=== PATIENT | female | born 1995 | race Caucasian/White ===

== ENCOUNTER 2019-07-19 17:14 | Emergency (ER) | payer MEDICAID, SELFPAY ==
[2019-07-19 17:47] VITALS: BP 104/67; PULSE 93; RESP 18; TEMP 37.3; O2SAT 100
--- NOTE | 2019-07-19 18:36 | ED.GENADULT ---
HPI - General Adult General Chief complaint: Upper Respiratory Infection Stated complaint: Lightheaded/congestion/nausea Time Seen by Provider: 07/19/19 18:38 Source: patient Mode of arrival: ambulatory Limitations: no limitations History of Present Illness HPI narrative: 23-year-old female patient presents to the [facility] with complaints of cold symptoms that started about 3 days ago. Patient states that she is currently 6 weeks approximately. Patient states that her boss recently did come back from [facility] and she has had contact with her recently. Patient states she has had a lot of congestion, sore throat, a cough. Patient states she has had some body aches and chills denies any fevers that she is aware of. Patient states that she did not get a flu shot this year. Patient states that her son recently had a cough as well. Related Data Home Medications Medication Instructions Recorded Confirmed No Home Medications 04/15/19 04/15/19 Allergies Allergy/AdvReac Type Severity Reaction Status Date / Time adhesive tape Allergy Unknown Rash Verified 04/15/19 08:39 azithromycin Allergy Unknown Swelling Verified 04/15/19 08:39 of Lip/Tongue/Throat amoxicillin Allergy Swelling Verified 04/15/19 08:39 of Lip/Tongue/Throat acetaminophen AdvReac Intermediate Headache Verified 04/15/19 08:39 Review of Systems Review of Systems: Narrative: CONSTITUTIONAL: Denies fever, positive body aches, chills, and sweats. EYES: Denies visual changes, redness, or discharge. ENT: Positive rhinorrhea, congestion, sore throat, denies otalgia. CARDIOVASCULAR: Denies chest pain, palpitations, or edema. RESPIRATORY: Positive cough, denies dyspnea. GASTROINTESTINAL: Denies abdominal pain, nausea, vomiting, or diarrhea. GENITOURINARY: Denies dysuria or hematuria. SKIN: Denies rash or itching. MUSCULOSKELETAL: Denies back pain, joint pain, or myalgia. NEUROLOGIC: Positive headache, denies numbness, or weakness. PSYCHIATRIC: Denies anxiety or depression. [facility] Surgical History Surgical History History of section Family History Family History Mother Patient's mother is in good health Father Acute myocardial infarction, Onset Age: 53 Social History Social History Smoking status: Never smoker Second hand tobacco smoke exposure: No Alcohol intake: never Gender identity (if verbalized by the patient): Female Comments At the time of my signature I agree with nursing past medical history, surgical, social, and family history. There is no relevant family history pertinent to the presenting complaint. Exam Narrative: Exam Narrative: GENERAL: Well-appearing, well-nourished, and in no acute distress. HEAD: Normocephalic, atraumatic. No tenderness noted to frontal maxillary sinuses on palpation EYES: PERRLA and EOMI. ENT: Nares with erythema and edema noted bilaterally, no rhinorrhea or epistaxis. Mucous membranes moist. Posterior pharynx with 2+ tonsil enlargement and slight erythema. Bilateral TMs are clear no erythema or foreign bodies in the canal. NECK: Supple. No lymphadenopathy CHEST: Clear to auscultation. No respiratory distress. Patient able talk in clear complete sentences. HEART: Regular rate and rhythm. No murmur heard. Normal peripheral pulses. ABDOMEN: Soft, nontender, nondistended, normal active bowel sounds. EXTREMITIES: Normal range of motion. No edema. SKIN: Warm, dry, no rash. NEURO: No focal deficits. Alert and oriented x3. Course Reevaluation(s) Reevaluation #1: Notify patient that she that she is negative today for strep and flu. Discussed with her we will send her strep swab off to the lab for further testing if it does come back positive in the next day or 2 we will call her and placing her and antib
== END 2019-07-19 19:07 | disposition home or self-care (01) ==
PROVIDERS: Emergency Provider Nurse Practitioner Family
DX: J06.9 Acute upper respiratory infection, unspecified (principal); R05 Cough
CPT/HCPCS: 87081; 87804; 87880; 99213; G0463

== ENCOUNTER 2019-07-28 07:11 | Outpatient (CLI) | payer MEDICAID, SELFPAY ==
[2019-07-28 09:04] LABS: Hematocrit 38.8 % (37.0-47.0); Hemoglobin 12.8 g/dL (12.0-15.0); Mean Corpuscular Hemoglobin 28.1 pg (26-34); Mean Corpuscular Volume 85.3 fl (80-100); Mean Platelet Volume 9.4 fl (7.4-10.4); Platelet Count Result 478 k/mm3 (150-375); Red Blood Count 4.55 M/mm3 (4.2-5.4); Red Cell Distribution Width 13.2 % (11.5-14.5); White Blood Count 15.2 K/mm3 (4.5-10.0)
[2019-07-28 09:08] LABS: Glucose 1 Hour PP 50gm Dose 125 mg/dL
[2019-07-28 10:00] LABS: Hepatitis B Surface Antigen Negative (Negative)
[2019-07-30 07:29] LABS: Rapid Plasma Reagin Non-Reactive (NonReactive)
[2019-08-01 17:14] LABS: CMV IgG Antibody <0.60 U/mL (<0.60)
== END 2019-07-28 07:12 | disposition home or self-care (01) ==
PROVIDERS: Visit Provider Obstetrics & Gynecology
DX: N92.5 Other specified irregular menstruation (principal)
CPT/HCPCS: 36415; 82947; 84702; 85027; 86592; 86644; 86747; 86787; 87086; 87340

== ENCOUNTER 2019-07-31 13:57 | Outpatient (CLI) | payer MEDICAID, SELFPAY ==
[2019-07-31 18:10] LABS: Rubella IgG Antibody 0.7 IU/ML
[2019-07-31 18:11] LABS: HIV 1/2 Ab P24 Ag Result Negative (Negative)
== END 2019-07-31 13:58 | disposition home or self-care (01) ==
LOC: ANHWCLAB 14:00
PROVIDERS: PCP Obstetrics & Gynecology; Visit Provider Obstetrics & Gynecology
DX: N92.5 Other specified irregular menstruation (principal)
CPT/HCPCS: 36415; 86703; 86762; 86850; 86900; 86901; G0432

== ENCOUNTER 2019-08-12 19:54 | Emergency (ER) | payer OTHER, SELFPAY ==
[2019-08-12 19:57] VITALS: BP 126/85; PULSE 96; RESP 18; TEMP 36.4; O2SAT 100
--- NOTE | 2019-08-12 20:09 | ED.FEMALEGU ---
HPI - Female Genitourinary General Chief complaint: Vaginal Bleeding <Brianna Preston PA-C - Last Filed: 08/12/19 21:35> Stated complaint: poss m/c <Brianna Preston PA-C - Last Filed: 08/12/19 21:35> Time Seen by Provider: 08/12/19 20:01 <Brianna Preston PA-C - Last Filed: 08/12/19 21:35> Source: patient <YINA Ortiz Last Filed: 08/12/19 21:35> Mode of arrival: ambulatory <YINA Ortiz Last Filed: 08/12/19 21:35> Limitations: no limitations <YINA Ortiz Last Filed: 08/12/19 21:35> History of Present Illness HPI Narrative: This is a 23 year old that presents to the ER for possible miscarriage. Reports she is 9 weeks . Reports her OB is Dr. Walter and she has had a normal US this . Reports today she started to have some cramping in her lower back. She then noted some mucus discharge that looked like there was some blood in it when she wiped. Denies fever, vomiting, dysuria or hematuria. <Brianna Preston PA-C - Last Filed: 08/12/19 21:35> Related Data Home medications: Home Medications Medication Instructions Recorded Confirmed No Home Medications 04/15/19 04/15/19 <YINA Ortiz Last Filed: 08/12/19 21:35> Allergies/Adverse reactions: Allergies Allergy/AdvReac Type Severity Reaction Status Date / Time adhesive tape Allergy Unknown Rash Verified 08/12/19 21:26 azithromycin Allergy Unknown Swelling Verified 08/12/19 21:26 of Lip/Tongue/Throat amoxicillin Allergy Swelling Verified 08/12/19 21:26 of Lip/Tongue/Throat acetaminophen AdvReac Intermediate Headache Verified 08/12/19 21:26 <YINA Ortiz Last Filed: 08/12/19 21:35> Review of Systems Review of Systems: Narrative: CONSTITUTIONAL: Denies fever GASTROINTESTINAL: Denies abdominal pain, nausea, vomiting GENITOURINARY: Denies dysuria or hematuria. MUSCULOSKELETAL: Reports back pain <Brianna Preston PA-C - Last Filed: 08/12/19 21:35> All systems reviewed & are unremarkable except as noted in HPI and below <Brianna Preston PA-C - Last Filed: 08/12/19 21:35> [facility] Social History Social History: Social History (Updated 08/12/19 @ 20:09 by Brianna Preston PA-C) Smoking status: Current some day smoker Alcohol intake: never Substance use type: marijuana Gender identity (if verbalized by the patient): Female <Brianna Preston PA-C - Last Filed: 08/12/19 21:35> Exam Narrative: Exam Narrative: GENERAL: Well-appearing, obese, and in no acute distress. HEAD: Normocephalic, atraumatic. EYES: EOMI. CHEST: Clear to auscultation. No respiratory distress. No wheezes rales or rhonchi HEART: Regular rate and rhythm. No murmur heard. Normal peripheral pulses. ABDOMEN: Soft, nontender, nondistended, normal active bowel sounds. EXTREMITIES: Normal range of motion. No edema. SKIN: Warm, dry, no rash. NEURO: No focal deficits. Alert and oriented x3. PSYCH: Normal mood and affect PELVIC: Normal cervix, closed. Small amount of dark red blood in the vaginal vault <Brianna Preston PA-C - Last Filed: 08/12/19 21:35> Course Vital Signs Vital signs: Vital Signs Temperature 36.4 C L 08/12/19 19:57 Pulse Rate 96 08/12/19 19:57 Respiratory Rate 18 08/12/19 19:57 Blood Pressure 126/85 08/12/19 19:57 Pulse Oximetry 100 08/12/19 19:57 Temperature 36.4 C L 08/12/19 19:57 Pulse Rate 85 08/12/19 21:42 Respiratory Rate 16 08/12/19 21:42 Blood Pressure 110/55 L 08/12/19 21:42 Pulse Oximetry 98 08/12/19 21:42 <Brianna Preston PA-C - Last Filed: 08/12/19 21:35> Vital Signs Temperature 36.4 C L 08/12/19 19:57 Pulse Rate 96 08/12/19 19:57 Respiratory Rate 18 08/12/19 19:57 Blood Pressure 126/85 08/12/19 19:57 Pulse Oximetry 100 08/12/19 19:57 Temperature 36.4 C L 08/12/19 19:57 Pulse Rate 85 08/12/19 21:42 Respiratory Rate 16 04/
[2019-08-12 20:20] LABS: Basophils Absolute Auto 0.1 K/mm3 (0.0-0.1); Basophils Percent Auto 0.6 % (0.2-1.2); Eosinophils Absolute Auto 0.3 K/mm3 (0-0.3); Eosinophils Percent Auto 2.3 % (0-4.4); Hematocrit 42.1 % (37.0-47.0); Hemoglobin 13.7 g/dL (12.0-15.0); Immature Granulocyte Absolute 0.04 K/mm3 (0.00-0.031); Immature Granulocyte Percent A 0.3 % (0-0.5); Lymphocytes Absolute Auto 3.88 K/mm3 (0.9-3.2); Lymphocytes Percent Auto 33.7 % (18.3-44.2); Mean Corpuscular HGB Conc 32.5 g/dl (32-36); Mean Corpuscular Hemoglobin 28.3 pg (26-34); Mean Platelet Volume 9.4 fl (7.4-10.4); Monocytes Absolute Auto 0.6 K/mm3 (0.1-0.6); Monocytes Percent Auto 5.1 % (2.6-8.5); Neutrophils Absolute Auto 6.7 K/mm3 (1.3-6.7); Platelet Count Result 485 k/mm3 (150-375); Red Blood Count 4.84 M/mm3 (4.2-5.4); Red Cell Distribution Width 13.5 % (11.5-14.5); White Blood Count 11.5 K/mm3 (4.5-10.0)
[2019-08-12 20:26] VITALS: BP 116/84; BP 119/73; BP 120/81; PULSE 112; PULSE 92; PULSE 98
[2019-08-12 20:31] LABS: Blood Urea Nitrogen 10 mg/dL (7-17); Calcium 9.7 mg/dL (8.4-10.2); Carbon Dioxide 29 mmol/L (22-30); Chloride 100 mmol/L (98-107); Estimated Glomerular Filt Rate > 60; Glucose 96 mg/dL (65-105); Potassium 3.5 mmol/L (3.4-5.0); Sodium 137 mmol/L (137-145)
[2019-08-12 21:07] LABS: Add Urine Microscopic? YES; Appearance Urine Clear (Clear); Bacteria Urine Trace /hpf; Bilirubin Urine Negative (Negative); Blood Urine Negative (Negative); Color Urine Yellow (Yellow); Glucose Urine UA Negative (Negative); Ketones Urine Trace mg/dL (Negative); Leukocyte Esterase Ur Trace LEU/UL (Negative); Mucus Urine Rare /lpf; Nitrate Urine Negative (Negative); Protein Urine 1+ mg/dL (Negative); Specific Grav Ur 1.027 (1.001-1.035); Squamous Epithelial Cell Urine Many /hpf (Few)
[2019-08-12 21:42] VITALS: BP 110/55; PULSE 85; RESP 16; O2SAT 98
== END 2019-08-12 21:44 | disposition home or self-care (01) ==
PROVIDERS: Physician Assistant; Emergency Provider Emergency Medicine; PCP Obstetrics & Gynecology
DX: O46.91 Antepartum hemorrhage, unspecified, first trimester (principal); O99.331 Smoking (tobacco) complicating pregnancy, first trimester; F17.200 Nicotine dependence, unspecified, uncomplicated; Z3A.09 9 weeks gestation of pregnancy
CPT/HCPCS: 36415; 80048; 81001; 81025; 84702; 85025; 86900; 86901; 87070; 87491; 87591; 87808; 99284

== ENCOUNTER 2019-08-30 01:16 | Day surgery (SDC) | payer OTHER, SELFPAY ==
[2019-08-29 12:49] VITALS: BMI 42.2
[2019-08-30] MEDS: LACTATED RINGERS 1,000 ML 30 ML IV CONT (06:05)
[2019-08-30 06:09] VITALS: BP 120/70; PULSE 95; RESP 20; TEMP 36.3; O2SAT 100
--- NOTE | 2019-08-30 07:08 | WPDANESEPPF ---
Anes - Initial Pre Proc Eval Procedure: Operation Date: 08/30/19 07:30 Proposed Procedures p Suction Dilation and Curettage - Wilson Walter MD Date/Time: 08/30/19 07:08 Surgeon: Wilson Walter MD Pre Op Diagnosis: missed ab Patient Data Age: 23 Gender: F Height: 1.52 m Weight: 97.4 kg Last Vital Signs Temp 36.3 C L 08/30/19 06:09 Pulse 95 08/30/19 06:09 Resp 20 08/30/19 06:09 BP 120/70 08/30/19 06:09 Pulse Ox 100 08/30/19 06:09 Allergies Allergy/AdvReac Type Severity Reaction Status Date / Time amoxicillin Allergy Severe Swelling Verified 08/30/19 06:50 of Lip/Tongue/Throat adhesive tape Allergy Mild Rash Verified 08/30/19 06:50 azithromycin Allergy Unknown Swelling Verified 08/30/19 06:50 of Lip/Tongue/Throat acetaminophen AdvReac Intermediate Headache Verified 08/30/19 06:50 Home Medications Medication Instructions Recorded Confirmed Type No Home Medications 04/15/19 08/30/19 History Patient hx anesthesia problems: none Family hx anesthesia problems: none PMFSH Past Medical History Medical History (Updated 08/30/19 @ 07:09 by Jamel Green MD) Anxiety Depression Eczema HTN (hypertension) Hypercholesterolemia Migraine Morbid obesity with BMI of 40.0-44.9, adult Surgical History Surgical History (System 08/13/19 @ 09:23 by Olivia Gilmore) History of section Social History Social History (System 08/13/19 @ 09:23 by Olivia Gilmore) Smoking status: Current some day smoker Alcohol intake: never Substance use type: marijuana Gender identity (if verbalized by the patient): Female Anes - Eval Final PreProcedure Day of Procedure 08/30/19 07:08 Patient weight: morbidly obese Heart: regular rate and rhythm Lungs: clear to auscultation and normal air movement Airway: Mallampati scale class II Neurological: alert and oriented Last oral intake: >/= 8 hours ASA classification: III Emergent: no Anesthetic plan: proceed Anesthesia type and monitoring: general GIVS Informed Consent: The patient's anesthetic plan and its attendant risks and benefits were discussed with the patient/family/POA. Questions were solicited and answers provided to the satisfaction of the patient/family/POA.
--- NOTE | 2019-08-30 07:14 | PM.IMHP ---
H&P: HPI History of Present Illness Chief complaint: missed ab Narrative: Jacinta Rodrigues is a 23 year old female 0-1 presents for suction curettage due to missed . She has had multiple ultrasounds with no pole noted and no growth in gestational sac. She has had no bleeding or pain. We have discussed expectant management versus intervention and she strongly desires to have curettage performed. Review of Systems Review of Systems: All systems reviewed & are unremarkable except as noted in HPI and below PMFSH Past Medical History Medical History Anxiety Depression Eczema HTN (hypertension) Hypercholesterolemia Migraine Morbid obesity with BMI of 40.0-44.9, adult Surgical History Surgical History History of section Family History Family History Mother Patient's mother is in good health Father Acute myocardial infarction, Onset Age: 53 Social History Social History Smoking status: Current some day smoker Alcohol intake: never Substance use type: marijuana Gender identity (if verbalized by the patient): Female Meds Home Medications and Allergies Home Medications Medication Instructions Recorded Confirmed Type No Home Medications 04/15/19 08/30/19 History Allergies Allergy/AdvReac Type Severity Reaction Status Date / Time amoxicillin Allergy Severe Swelling Verified 08/30/19 06:50 of Lip/Tongue/Throat adhesive tape Allergy Mild Rash Verified 08/30/19 06:50 azithromycin Allergy Unknown Swelling Verified 08/30/19 06:50 of Lip/Tongue/Throat acetaminophen AdvReac Intermediate Headache Verified 08/30/19 06:50 Vital Signs Vital Signs - 24 hr 08/30/19 06:09 Temperature 36.3 C L Pulse Rate 95 Respiratory Rate 20 Blood Pressure 120/70 Pulse Oximetry 100 Exam Const: General: no acute distress Resp: Auscultation: clear to auscultation bilaterally Cardio: Rate: regular rate Rhythm: regular rhythm : Bimanual exam- vagina & uterus: enlarged (8-10 week size) Assessment and Plan Assessment and plan (1) Missed : Code(s): O02.1 - Missed Status: Acute Assessment and Plan: Proceed with suction curettage.
--- NOTE | 2019-08-30 07:52 | PM.OP ---
Procedure Note - Brief Procedure Note - Brief Date of procedure: 08/30/19 Pre-op diagnosis: missed ab Post-op diagnosis: same Procedure performed: Suction curettage Description of procedure: Patient prepped draped usual manner for this procedure. Cervix dilated to allow a 9mm suction curette to be placed. Curette was placed and 25th 25cc of tissue were removed. Sharp curette throughout the entire cavity with no remaining tissue noted. Suction curette placed 1 last time with small amount of bleeding. This point seizure was considered terminated. Immediate postop condition patient was excellent. Anesthesia: MAC Surgeon: Wilson Walter MD Estimated blood loss (mL): 50 Drains: No Packing: No Pathology: yes (Products of conception) Complications: No immediate complications Condition: stable Disposition: PACU Findings: Moderate amount of retained products of conception.
[2019-08-30 07:53] VITALS: BP 99/59; PULSE 96; RESP 16; O2SAT 95
[2019-08-30] MEDS: KETOROLAC 30 MG/ML VIAL (*BKC) IV PUSH (08:10)
[2019-08-30 08:30] VITALS: BP 91/47; PULSE 74; RESP 16
[2019-08-30 08:55] VITALS: BP 108/69; PULSE 78; RESP 16
== END 2019-08-30 09:10 | disposition home or self-care (01) ==
PROVIDERS: Visit Provider Obstetrics & Gynecology
PROC: (CPT 59820; principal; 2019-08-30 07:30)
DX: O02.1 Missed abortion (principal); E66.01 Morbid (severe) obesity due to excess calories; Z68.41 Body mass index [BMI] 40.0-44.9, adult; Z72.0 Tobacco use; F12.90 Cannabis use, unspecified, uncomplicated
CPT/HCPCS: 59820; 88305; A9270; J1885; J2250; J2704; J7120

== ENCOUNTER 2019-10-02 11:37 | Emergency (ER) | payer OTHER, SELFPAY ==
--- NOTE | 2019-10-02 11:54 | ED.GENADULT ---
HPI - General Adult General Chief complaint: Upper Respiratory Infection Stated complaint: Sore throat Time Seen by Provider: 10/02/19 11:54 Source: patient Mode of arrival: ambulatory Limitations: no limitations History of Present Illness HPI narrative: 23-year-old female patient resents to the [facility] with plaints of cold symptoms that started yesterday. Patient states she has had a fever as high as 99. Patient states she has been taking ibuprofen for symptoms. Patient states she has had a runny nose, stuffy nose, sneezing, sore throat and slight cough. Patient states every once while she might have some shortness of breath but that is not necessarily new. Patient does states that she smokes cigarettes at times and does smoke marijuana. Patient states that she does currently working at this time [employer]. Patient states she is tried taking ibuprofen for symptoms but denies any other [id number]-lrvybsy medications for symptoms. Related Data Home Medications Medication Instructions Recorded Confirmed [id number]-sybudqpshwnte-kbfz tablet 10/02/19 Allergies Allergy/AdvReac Type Severity Reaction Status Date / Time amoxicillin Allergy Severe Swelling Verified 08/30/19 06:50 of Lip/Tongue/Throat adhesive tape Allergy Mild Rash Verified 08/30/19 06:50 azithromycin Allergy Unknown Swelling Verified 08/30/19 06:50 of Lip/Tongue/Throat acetaminophen AdvReac Intermediate Headache Verified 08/30/19 06:50 Review of Systems Review of Systems: Narrative: CONSTITUTIONAL: Positive subjective low-grade fever, chills, denies sweats. EYES: Denies visual changes, redness, or discharge. ENT: Positive rhinorrhea, congestion, sore throat, denies otalgia. CARDIOVASCULAR: Denies chest pain, palpitations, or edema. RESPIRATORY: Positive intermittent cough, denies dyspnea. GASTROINTESTINAL: Denies abdominal pain, nausea, vomiting, or diarrhea. GENITOURINARY: Denies dysuria or hematuria. SKIN: Denies rash or itching. MUSCULOSKELETAL: Denies back pain, joint pain, or myalgia. NEUROLOGIC: Denies headache, numbness, or weakness. PSYCHIATRIC: Denies anxiety or depression. [facility] Past Medical History Medical History Anxiety Depression Eczema HTN (hypertension) Hypercholesterolemia Migraine Morbid obesity with BMI of 40.0-44.9, adult Surgical History Surgical History History of section Family History Family History Mother Patient's mother is in good health Father Acute myocardial infarction, Onset Age: 53 Social History Social History Smoking status: Current some day smoker Alcohol intake: never Substance use type: marijuana Gender identity (if verbalized by the patient): Female Comments At the time of my signature I agree with nursing past medical history, surgical, social, and family history. There is no relevant family history pertinent to the presenting complaint. Exam Narrative: Exam Narrative: GENERAL: Well-appearing, well-nourished, and in no acute distress. HEAD: Normocephalic, atraumatic. EYES: PERRLA and EOMI. ENT: Nares with erythema and edema noted bilateral, no rhinorrhea or epistaxis. Mucous membranes moist. Posterior pharynx with no erythema, tonsil enlargement, exudates or lesions present. Bilateral TMs are clear no erythema or foreign bodies in the canal. NECK: Supple. No lymphadenopathy CHEST: Clear to auscultation. No respiratory distress. Patient able talk in clear complete sentences. No tripoding noted. HEART: Regular rate and rhythm. No murmur heard. Normal peripheral pulses. ABDOMEN: Soft, nontender, nondistended, normal active bowel sounds. EXTREMITIES: Normal range of motion. No edema. SKIN: Warm, dry, no rash. NEURO: No focal
[2019-10-02 11:58] VITALS: BP 118/74; PULSE 88; RESP 16; TEMP 37.3; O2SAT 100
== END 2019-10-02 12:21 | disposition home or self-care (01) ==
PROVIDERS: Emergency Provider Nurse Practitioner Family
DX: Z20.828 Contact with and (suspected) exposure to other viral communicable diseases (principal); J30.9 Allergic rhinitis, unspecified; J06.9 Acute upper respiratory infection, unspecified; F17.210 Nicotine dependence, cigarettes, uncomplicated; F12.90 Cannabis use, unspecified, uncomplicated; I10 Essential (primary) hypertension; E66.01 Morbid (severe) obesity due to excess calories; Z68.41 Body mass index [BMI] 40.0-44.9, adult
CPT/HCPCS: 87081; 87880; 99213; G0463

== ENCOUNTER 2019-10-30 17:11 | Outpatient (CLI) | payer OTHER, SELFPAY ==
[2019-11-02 18:22] LABS: Anti-Thrombin III Antigen 85 % (80-120)
[2019-11-02 21:00] LABS: Lupus dRVVT Confirmation Positive (Negative)
[2019-11-03 04:38] LABS: Anti Cardio Antibody IgM <12 MPL (<=12); Anti Cardiolipin Antibody IgA <11 APL (<=11); Anti Cardiolipin Antibody IgG <14 GPL (<=14)
[2019-11-03 04:53] LABS: Lupus dRVVT Screen 46 sec (<=45); PTT-LA Screen 35 sec (<=40)
== END 2019-10-30 17:12 | disposition home or self-care (01) ==
PROVIDERS: PCP Obstetrics & Gynecology; Visit Provider Obstetrics & Gynecology
DX: N96 Recurrent pregnancy loss (principal)
CPT/HCPCS: 36415; 81241; 84311; 85301; 85303; 85306; 85597; 85613; 85730; 86038; 86147

== ENCOUNTER 2020-02-26 16:24 | Outpatient (CLI) | payer OTHER, SELFPAY | END 2020-02-26 16:25 | disposition home or self-care (01) | LOC: ANHLAB 16:26 | PROVIDERS: Visit Provider Obstetrics & Gynecology | DX: O20.0 Threatened abortion (principal) | CPT/HCPCS: 36415; 84702 ==

== ENCOUNTER 2020-02-28 11:51 | Outpatient (CLI) | payer OTHER, SELFPAY | END 2020-02-28 11:52 | disposition home or self-care (01) | PROVIDERS: Visit Provider Obstetrics & Gynecology | DX: O20.0 Threatened abortion (principal) | CPT/HCPCS: 36415; 84702 ==

== ENCOUNTER 2020-04-08 12:12 | Outpatient (CLI) | payer OTHER, SELFPAY ==
[2020-04-08 13:48] LABS: Hematocrit 38.2 % (37.0-47.0); Mean Corpuscular Hemoglobin 29.1 pg (26-34); Mean Corpuscular Volume 85.7 fl (80-100); Mean Platelet Volume 9.3 fl (7.4-10.4); Platelet Count Result 346 k/mm3 (150-375); Red Blood Count 4.46 M/mm3 (4.2-5.4); Red Cell Distribution Width 13.5 % (11.5-14.5); White Blood Count 8.5 K/mm3 (4.5-10.0)
[2020-04-08 14:00] LABS: Glucose 1 Hour PP 50gm Dose 146 mg/dL
[2020-04-08 16:44] LABS: Hepatitis B Surface Antigen Negative (Negative); Rubella IgG Antibody < 0.6 IU/ML
[2020-04-08 17:53] LABS: HIV 1/2 Ab P24 Ag Result Negative (Negative)
[2020-04-09 06:41] LABS: Rapid Plasma Reagin Non-Reactive (NonReactive)
[2020-04-14 08:33] LABS: CMV IgG Antibody <0.60 U/mL (<0.60)
== END 2020-04-08 12:13 | disposition home or self-care (01) ==
PROVIDERS: Visit Provider Obstetrics & Gynecology
DX: Z34.81 Encounter for supervision of other normal pregnancy, first trimester (principal); Z3A.00 Weeks of gestation of pregnancy not specified
CPT/HCPCS: 36415; 82947; 85027; 86592; 86644; 86703; 86747; 86762; 86787; 86850; 86900; 86901; 87086; 87340; G0432

== ENCOUNTER 2020-04-21 06:56 | Outpatient (CLI) | payer OTHER, SELFPAY ==
[2020-04-21 08:10] LABS: Glucose Fasting Gestational 90 mg/dL (>/=95)
[2020-04-21 10:04] LABS: Glucose 1 Hour Gest 168 mg/dL (>/=180)
[2020-04-21 10:43] LABS: Glucose 2 Hour Gest 145 mg/dL (>/= 155)
[2020-04-21 11:46] LABS: Glucose 3 Hour Gest 125 mg/dL (>/=140)
== END 2020-04-21 06:57 | disposition home or self-care (01) ==
PROVIDERS: Visit Provider Obstetrics & Gynecology
DX: R73.09 Other abnormal glucose (principal)
CPT/HCPCS: 36415; 82951; 82952

== ENCOUNTER 2020-05-27 14:28 | Outpatient (CLI) | payer OTHER, SELFPAY | END 2020-05-27 14:29 | disposition home or self-care (01) | PROVIDERS: Visit Provider Obstetrics & Gynecology | DX: N39.0 Urinary tract infection, site not specified (principal) | CPT/HCPCS: 87086 ==

== ENCOUNTER 2020-06-02 16:58 | Observation (INO) | payer OTHER, SELFPAY ==
[2020-06-02 17:46] VITALS: BP 104/61; PULSE 99
[2020-06-02 18:01] VITALS: BP 102/55; PULSE 94
--- NOTE | 2020-06-16 09:39 | PM.OBTRLD ---
OB - Triage/Final Diagnosis Visit Information Comments/Additional reasons for admission: I have assessed the risk for this patient, Jacinta Rodrigues, and determined that she would benefit from observation care. Final Diagnosis (1) Round ligament pain: Code(s): N94.9 - Unspecified condition associated with female genital organs and menstrual cycle Status: Acute
== END 2020-06-02 18:10 | disposition home or self-care (01) ==
PROVIDERS: Admitting Provider Obstetrics & Gynecology; Visit Provider Obstetrics & Gynecology
DX: O26.892 Other specified pregnancy related conditions, second trimester (principal); R10.2 Pelvic and perineal pain; Z3A.19 19 weeks gestation of pregnancy
CPT/HCPCS: G0378; G0379

== ENCOUNTER 2020-08-01 11:12 | Outpatient (CLI) | payer OTHER, SELFPAY ==
[2020-08-01 12:38] LABS: Basophils Percent Auto 0.2 % (0.2-1.2); Eosinophils Absolute Auto 0.2 K/mm3 (0-0.3); Eosinophils Percent Auto 1.3 % (0-4.4); Hematocrit 34.6 % (37.0-47.0); Hemoglobin 11.6 g/dL (12.0-15.0); Immature Granulocyte Absolute 0.13 K/mm3 (0.00-0.031); Immature Granulocyte Percent A 0.9 % (0-0.5); Lymphocytes Absolute Auto 2.61 K/mm3 (0.9-3.2); Lymphocytes Percent Auto 18.9 % (18.3-44.2); Mean Corpuscular HGB Conc 33.5 g/dl (32-36); Mean Corpuscular Hemoglobin 28.5 pg (26-34); Mean Platelet Volume 9.5 fl (7.4-10.4); Monocytes Absolute Auto 0.4 K/mm3 (0.1-0.6); Neutrophils Absolute Auto 10.4 K/mm3 (1.3-6.7); Neutrophils Percent Auto 75.7 % (45.5-73.1); Platelet Count Result 373 k/mm3 (150-375); Red Blood Count 4.07 M/mm3 (4.2-5.4); Red Cell Distribution Width 14.1 % (11.5-14.5); White Blood Count 13.8 K/mm3 (4.5-10.0)
[2020-08-01 12:49] LABS: Glucose 1 Hour PP 50gm Dose 154 mg/dL
[2020-08-01 13:31] LABS: HIV 1/2 Ab P24 Ag Result Negative (Negative)
== END 2020-08-01 11:13 | disposition home or self-care (01) ==
PROVIDERS: Visit Provider Obstetrics & Gynecology
DX: Z34.82 Encounter for supervision of other normal pregnancy, second trimester (principal); Z3A.00 Weeks of gestation of pregnancy not specified
CPT/HCPCS: 36415; 82947; 85025; 86703; G0432

== ENCOUNTER 2020-08-23 06:56 | Observation (INO) | payer OTHER, SELFPAY ==
[2020-08-23 07:10] VITALS: BMI 96.8
--- NOTE | 2020-08-23 07:10 | OBADM ---
This patient, Jacinta Rodrigues, admitted to the OB room OB Post 116 for observation. Patient/family oriented to hospital policies and general routines including ID bracelet, bed and alarms, visiting hours, pain management, procedures, bathroom and other care routines, personal items, smoking policy, room service/diet, and visiting hours. Patient/Family are encouraged to report perceived risks to care and to ask questions if they do not understand what they are told or what they should do.
[2020-08-23 07:18] VITALS: BP 115/58; PULSE 106
[2020-08-23 07:30] VITALS: BP 113/58; PULSE 110
[2020-08-23 07:53] VITALS: BP 115/58; PULSE 106
--- NOTE | 2020-08-23 07:59 | PC.NURSE ---
Felipe Vogel spoke with Dr. Walter. Will discharge patient to home with follow up in office.
--- NOTE | 2020-08-30 09:01 | PM.OBTRLD ---
OB - Triage/Final Diagnosis Visit Information Reason for evaluation: threatened labor Comments/Additional reasons for admission: I have assessed the risk for this patient, Jacinta Rodrigues, and determined that she would benefit from observation care.
== END 2020-08-23 07:55 | disposition home or self-care (01) ==
PROVIDERS: Admitting Provider Obstetrics & Gynecology; Visit Provider Obstetrics & Gynecology
DX: O47.9 False labor, unspecified (principal); Z3A.00 Weeks of gestation of pregnancy not specified
CPT/HCPCS: 59025; G0378; G0379

== ENCOUNTER 2020-10-10 13:29 | Outpatient (RCR) | payer OTHER, SELFPAY ==
[2020-08-27 13:53] VITALS: BP 126/68; PULSE 109
--- NOTE | 2020-08-27 14:17 | PC.NURSE ---
BPP 12/14
[2020-08-30 09:55] VITALS: BP 115/71; PULSE 117
[2020-09-03 15:21] VITALS: BP 106/48
[2020-09-07 14:33] VITALS: BP 107/66; PULSE 106
[2020-09-10 10:03] VITALS: BP 114/64; PULSE 108
[2020-09-13 14:18] VITALS: BP 114/62; PULSE 111
[2020-09-17 15:05] VITALS: BP 109/63; PULSE 116
[2020-09-20 15:36] VITALS: BP 127/70; PULSE 107
[2020-09-24 14:00] VITALS: BP 115/69; PULSE 107
[2020-09-29 14:40] VITALS: BP 106/55; PULSE 107
[2020-10-02 15:49] VITALS: BP 120/72; PULSE 105
[2020-10-07 14:02] VITALS: BP 128/73; PULSE 105
--- NOTE | ~2020-10-10 | US_ITS ---
EXAMINATION: US OB BPP wo non-stress DATE: 09/10/2020 10:09 INDICATION: Gestational diabetes third trimester TECHNIQUE: Real-time pelvic ultrasound was performed. The interpreting radiologist was not present fo r the study. COMPARISON: 08/24/2020 FINDINGS: There is a single living fetus in vertex presentation. The placenta is anterior. heart rate is 141 beats per minute (bpm). Biophysical profile performed by the technologist: breathing (30 sec sustained breathing in 30 minutes): 2 out of 2 movement (3 gross body movements in 30 minutes): 2 out of 2 tone (one episode of mngiiqf-giyomlgyy-fkxfyuu limb movement): 2 out of 2 Amniotic fluid pocket (2 cm): 2 out of 2 Total score: 8 out of 8 IMPRESSION: 1. Single living fetus in vertex presentation. 2. Biophysical profile 8 out of 8. Reviewed, dictated and finalized at location A.
--- NOTE | ~2020-10-10 | US_ITS ---
EXAMINATION: US OB BPP wo non-stress DATE: 09/24/2020 14:28 INDICATION: Gestational diabetes. Third trimester. TECHNIQUE: Real-time pelvic ultrasound was performed. COMPARISON: Ultrasound 09/17/2020 FINDINGS: There is a single living fetus in vertex presentation. The placenta is fundal. heart rate is 1 28 beats per minute (bpm). Biophysical profile performed by the technologist: breathing (30 sec sustained breathing in 30 minutes): 2 out of 2 movement (3 gross body movements in 30 minutes): 2 out of 2 tone (one episode of pztpznh-tcvbsqboz-inahwpl limb movement): 2 out of 2 Amniotic fluid pocket (2 cm): 2 out of 2 Total score: 8 out of 8 IMPRESSION: 1. Single living fetus in vertex presentation. 2. Biophysical profile 8 out of 8. Reviewed, dictated and finalized at location A.
--- NOTE | ~2020-10-10 | US_ITS ---
EXAMINATION: US OB BPP wo non-stress DATE: 10/02/2020 16:59 CDT INDICATION: Gestational diabetes TECHNIQUE: Real-time transabdominal obstetric ultrasound. FINDINGS: Ultrasound dated 09/24/2020 There is a single living fetus in vertex presentation. The placenta is fundal without placenta previ a. cardiac activity and movement is noted with a heart rate of 119 beats per minute. Biophysical profile: breathin of 2 movement: 2 of 2 tone: 2 of 2 Amniotic flud pocket: 2 of 2 Total score: 8 of 8 IMPRESSION: 1. Single living intrauterine in vertex presentation. 2: Total biophysical profile score of 8/8. Reviewed, dictated and finalized at location A.
--- NOTE | ~2020-10-10 | US_ITS ---
EXAMINATION: US OB BPP wo non-stress DATE: 08/27/2020 14:14 INDICATION: Maternal gestational diabetes during third trimester of TECHNIQUE: Real-time pelvic ultrasound was performed. The interpreting radiologist was not present fo r the study. COMPARISON: None. FINDINGS: There is a single living fetus in vertex presentation. The placenta is anterior. heart rate is 124 beats per minute (bpm). Biophysical profile performed by the technologist: breathing (30 sec sustained breathing in 30 minutes): 2 out of 2 movement (3 gross body movements in 30 minutes): 2 out of 2 tone (one episode of pfquhea-rfaylaela-nvxzoii limb movement): 2 out of 2 Amniotic fluid pocket (2 cm): 2 out of 2 Total score: 8 out of 8 IMPRESSION: 1. Single living fetus in vertex presentation with heart rate of 124 bpm. 2. Biophysical profile 8 out of 8. Reviewed, dictated and finalized at location A.
--- NOTE | ~2020-10-10 | US_ITS ---
EXAMINATION: US OB BPP wo non-stress DATE: 09/03/2020 15:36 INDICATION: Gestational diabetes during third trimester TECHNIQUE: Real-time pelvic ultrasound was performed. The interpreting radiologist was not present fo r the study. COMPARISON: 08/27/2020 FINDINGS: There is a single living fetus in vertex presentation. The placenta is anterior. heart rate is 131 beats per minute (bpm). Biophysical profile performed by the technologist: breathing (30 sec sustained breathing in 30 minutes): 2 out of 2 movement (3 gross body movements in 30 minutes): 2 out of 2 tone (one episode of jbuwlyh-ysivyskqw-pafofvy limb movement): 2 out of 2 Amniotic fluid pocket (2 cm): 2 out of 2 Total score: 8 out of 8 IMPRESSION: 1. Single living fetus in vertex presentation with heart rate of 131 bpm. 2. Biophysical profile 8 out of 8. Reviewed, dictated and finalized at location A.
--- NOTE | ~2020-10-10 | US_ITS ---
EXAMINATION: US OB BPP wo non-stress EXAM DATE: 10/10/2020 14:33 INDICATION: Gestational diabetes. Biophysical profile requested. 3rd trimester. TECHNIQUE: Pelvic obstetrical transabdominal sonogram was performed by a technologist. There are mu ltiple grayscale and Doppler images available for interpretation. Comparison is made to prior examina tion from 10/02/2020. FINDINGS: There is a single fetus identified in vertex presentation with a heart rate of 152 beats pe r minute. The placenta is located in the anterior position. There is no sonographic evidence of retr oplacental hemorrhage identified. BIOPHYSICAL PROFILE (performed by the technologist) breathing (30 sec sustained breathing in 30 minutes): 2 out of 2 movement (3 gross body movements in 30 minutes): 2 out of 2 tone (one episode of bniqwiy-hjqmpqegk-wjtznoq limb movement): 2 out of 2 Amniotic fluid pocket (2 cm): 2 out of 2 Total score: 8 out of 8 IMPRESSION: 1. Single fetus with heart rate of 152 bpm. 2. Normal biophysical profile score of 8 out of 8. Reviewed, dictated and finalized at location B.
--- NOTE | ~2020-10-10 | US_ITS ---
EXAMINATION: US OB BPP wo non-stress DATE: 09/17/2020 14:57 INDICATION: Maternal gestational diabetes during third trimester of TECHNIQUE: Real-time pelvic ultrasound was performed. The interpreting radiologist was not present fo r the study. COMPARISON: None. FINDINGS: There is a single living fetus in vertex presentation. The placenta is anterior. heart rate is 133 beats per minute (bpm). Biophysical profile performed by the technologist: breathing (30 sec sustained breathing in 30 minutes): 2 out of 2 movement (3 gross body movements in 30 minutes): 2 out of 2 tone (one episode of oyxtbab-ugsbjbvem-cnwyzzq limb movement): 2 out of 2 Amniotic fluid pocket (2 cm): 2 out of 2 Total score: 8 out of 8 IMPRESSION: 1. Single living fetus in vertex presentation with heart rate of 133 bpm. 2. Biophysical profile 8 out of 8. Reviewed, dictated and finalized at location A.
[2020-10-10 14:01] VITALS: BP 121/71; PULSE 113
== END 2020-10-15 07:46 | disposition home or self-care (01) ==
LOC: ANHOBOP 13:29
PROVIDERS: Visit Provider Obstetrics & Gynecology
DX: O24.419 Gestational diabetes mellitus in pregnancy, unspecified control (principal); Z3A.32 32 weeks gestation of pregnancy; Z3A.33 33 weeks gestation of pregnancy; Z3A.34 34 weeks gestation of pregnancy; Z3A.35 35 weeks gestation of pregnancy; Z3A.36 36 weeks gestation of pregnancy; Z3A.37 37 weeks gestation of pregnancy; Z3A.38 38 weeks gestation of pregnancy
CPT/HCPCS: 59025; 76819

== ENCOUNTER 2020-10-13 11:54 | Outpatient (CLI) | payer OTHER, SELFPAY ==
[2020-10-13 12:20] LABS: Hematocrit 34.9 % (37.0-47.0); Hemoglobin 10.8 g/dL (12.0-15.0); Mean Corpuscular HGB Conc 30.9 g/dl (32-36); Mean Corpuscular Hemoglobin 25.2 pg (26-34); Mean Corpuscular Volume 81.5 fl (80-100); Platelet Count Result 329 k/mm3 (150-375); Red Blood Count 4.28 M/mm3 (4.2-5.4); Red Cell Distribution Width 14.6 % (11.5-14.5); White Blood Count 11.9 K/mm3 (4.5-10.0)
[2020-10-14 10:09] LABS: Rapid Plasma Reagin Non-Reactive (NonReactive)
== END 2020-10-13 11:55 | disposition home or self-care (01) ==
LOC: ANHLAB 11:56
PROVIDERS: Visit Provider Obstetrics & Gynecology
DX: Z01.818 Encounter for other preprocedural examination (principal)
CPT/HCPCS: 36415; 85027; 86592; 86850; 86900; 86901

== ENCOUNTER 2020-10-14 05:04 | Inpatient (IN) | payer OTHER, SELFPAY ==
[2020-10-14] VITALS (62 sets, daily range): BP systolic 82–130; BP diastolic 44–88; PULSE 59–123; RESP 16–21; TEMP 36.2–37; O2SAT 97–100; BMI 44.9
[2020-10-14] MEDS: LACTATED RINGERS 1,000 ML 125 ML IV CONT ×2 (06:14→07:12)
--- NOTE | 2020-10-14 06:27 | LDADM ---
This patient, Jacinta Rodrigues, was admitted to Labor/Delivery/Recovery 119 on 10/14/20 at 05:04. Plans for section, pain management and were discussed with patient. Patient/family oriented to hospital policies and general routines including ID bracelet, bed and alarms, visiting hours, pain management, procedures, bathroom and other care routines, personal items, smoking policy, room service/diet and guest tray routines, security routines, and visiting hours. Patient/Family are encouraged to report perceived risks to care and to ask questions if they do not understand what they are told or what they should do. See OBIX for further documentation.
[2020-10-14 06:47] LABS: Glucose Point of Care 87 mg/dl (65-105)
--- NOTE | 2020-10-14 07:07 | WPDANESEPPF ---
Anes - Initial Pre Proc Eval Procedure: Operation Date: 10/14/20 07:30 Proposed Procedures p Repeat Section - Wilson Walter MD Date/Time: 10/14/20 07:07 Surgeon: Wilson Walter MD Pre Op Diagnosis: Repeat C/S Patient Data Age: 24 Gender: F Height: 5 ft Weight: 104.5 kg Last Vital Signs Temp 36.6 C 10/14/20 06:45 Pulse 90 10/14/20 06:45 Resp 18 10/14/20 06:45 BP 125/87 10/14/20 06:45 Allergies Allergy/AdvReac Type Severity Reaction Status Date / Time amoxicillin Allergy Severe Swelling Verified 10/14/20 06:21 of Lip/Tongue/Throat adhesive tape Allergy Mild Rash Verified 10/14/20 06:21 Home Medications Medication Instructions Recorded Confirmed Type hydroxyzine HCl 25 mg PO DAILY 08/23/20 10/14/20 History PNV cmb#95-ferrous fumarate-FA 1 tablet PO DAILY 09/24/20 09/24/20 History [] melatonin 5 mg PO HS PRN 10/14/20 10/14/20 History Laboratory Tests 10/14/20 06:44 POC Capillary Glucose 87 mg/dl mg/dl (65-105) Patient hx anesthesia problems: none Family hx anesthesia problems: none PMFSH Past Medical History Medical History Anxiety Depression Eczema HTN (hypertension) Hypercholesterolemia Migraine Morbid obesity with BMI of 40.0-44.9, adult Surgical History Surgical History History of section Family History Family History Mother Anxiety Depression Bipolar 1 disorder Hypertension Migraines Father Diabetes mellitus Acute myocardial infarction, Onset Age: 49 Kidney failure Social History Social History Smoking status: Current every day smoker Tobacco type: e-cigarettes/vaping Second hand tobacco smoke exposure: Yes Alcohol intake: never Substance use: never Substance use type: marijuana Gender identity (if verbalized by the patient): Female Spiritual care concerns: No Anes - Eval Final PreProcedure Day of Procedure 10/14/20 07:07 Patient weight: morbidly obese Heart: regular rate and rhythm Lungs: clear to auscultation Airway: Mallampati scale class II Neurological: alert and oriented Last oral intake: >/= 8 hours ASA classification: III Emergent: no Anesthetic plan: proceed Anesthesia type and monitoring: regional spinal and standard monitoring Informed Consent: The patient's anesthetic plan and its attendant risks and benefits were discussed with the patient/family/POA. Questions were solicited and answers provided to the satisfaction of the patient/family/POA.
--- NOTE | 2020-10-14 07:20 | PM.IMHP ---
H&P: HPI History of Present Illness Date/Time: 10/14/20 07:20 4-year-old prior for para 1021 presents at 39 weeks for repeat delivery. is complicated by gestational diabetes which has been treated well and in the john testing was been normal. No other issues or concerns this times. Chief Complaint: Review of Systems Review of Systems: All systems reviewed & are unremarkable except as noted in HPI and below PMFSH Past Medical History Medical History (Updated 10/14/20 @ 07:22 by Wilson Walter MD) Anxiety Depression Eczema HTN (hypertension) Hypercholesterolemia Migraine Morbid obesity with BMI of 40.0-44.9, adult Surgical History Surgical History (Updated 10/14/20 @ 07:22 by Wilson Walter MD) History of section Family History Family History Mother Anxiety Depression Bipolar 1 disorder Hypertension Migraines Father Diabetes mellitus Acute myocardial infarction, Onset Age: 49 Kidney failure Social History Social History Smoking status: Current every day smoker Tobacco type: e-cigarettes/vaping Second hand tobacco smoke exposure: Yes Alcohol intake: never Substance use: never Substance use type: marijuana Gender identity (if verbalized by the patient): Female Spiritual care concerns: No Meds Home Medications and Allergies Home Medications Medication Instructions Recorded Confirmed Type hydroxyzine HCl 25 mg PO DAILY 08/23/20 10/14/20 History PNV cmb#95-ferrous fumarate-FA 1 tablet PO DAILY 09/24/20 09/24/20 History [] melatonin 5 mg PO HS PRN 10/14/20 10/14/20 History Allergies Allergy/AdvReac Type Severity Reaction Status Date / Time amoxicillin Allergy Severe Swelling Verified 10/14/20 06:21 of Lip/Tongue/Throat adhesive tape Allergy Mild Rash Verified 10/14/20 06:21 Vital Signs Vital Signs - 24 hr 10/14/20 05:40 10/14/20 06:40 10/14/20 06:45 Temperature 36.6 C Pulse Rate 98 90 90 Respiratory Rate 18 Blood Pressure 113/68 125/87 125/87 Exam Const: General: cooperative Resp: Effort & Inspection: normal respiratory effort Auscultation: clear to auscultation bilaterally Cardio: Rate: regular rate Rhythm: regular rhythm : Bimanual exam- vagina & uterus: enlarged ( Fundal height 40cm heart tones 140) Assessment and Plan Assessment and plan (1) 39 weeks gestation of : Code(s): Z3A.39 - 39 weeks gestation of Status: Acute (2) Gestational diabetes: Code(s): O24.419 - Gestational diabetes mellitus in , unspecified control Status: Acute (3) Previous section: Code(s): Z98.891 - History of uterine scar from previous surgery Status: Acute Additional Plan proceed with repeat low-transverse section
--- NOTE | 2020-10-14 07:22 | WPDHPUPDATE1 ---
History and Physical Update Update Date/Time: 10/14/20 07:22 History and Physical has been reviewed, including an updated exam of the patient. There are NO changes in the patient's condition. Risks, benefits, and alternatives have been discussed and questions answered. Patient agrees to proceed with procedure.
--- NOTE | 2020-10-14 07:23 | WPDHPUPDATE1 ---
History and Physical Update Update Date/Time: 10/14/20 07:23 History and Physical has been reviewed, including an updated exam of the patient. There are NO changes in the patient's condition. Risks, benefits, and alternatives have been discussed and questions answered. Patient agrees to proceed with procedure.
[2020-10-14] MEDS: KETOROLAC 30 MG/ML VIAL (*BKC) IV PUSH ×2 (08:20→13:40)
--- NOTE | 2020-10-14 08:24 | PM.OBPRVD ---
OB - Delivery Note Procedure Procedure: Procedures Operation Date: 10/14/20 07:30 <No data on this case meets the specified criteria> events: Previous and Gestational Diabetes Route of delivery: Specimen: Yes Quantitative Blood Loss (ml): 255 Anesthesia type: Spinal Disposition: PACU Narrative: Patient prepped and draped in usual manner for this procedure. Pfannenstiel incision was made which was carried down the fascia and extended bilaterally length of the skin incision. Superior inferiorly dissected away from rectus muscles peritoneum was readily entered and bladder flap was developed. Uterus scored with clear fluid noted and vertex was delivered section naso-oropharynx rest phase liver cord clamped and cut and placenta was removed manually. Uterus was exteriorized cleared of membranes and clots and rendered hemostatic with a 0 Monocryl running interlocking suture. Uterus returned to the abdomen all subfascial tissue was noted be hemostatic and the fascia was approximated using 0 Vicryl from the left angle to midline in running to midline in running manner. Subcutaneous tissue was approximated 0 plain suture and lane were used to approximate the skin edges. This point seizure was considered terminated patient was sent to cover room in stable condition. [place] Baby Weeks of gestation at delivery: 39 Infant gender: Female Weight (pounds): 7 Weight (ounces): 9 score one minute: 8 score five minutes: 9
[2020-10-14] MEDS: OXYTOCIN 30 UNITS/NS 500 ML 30 UNITS/500 ML BAG 125 UNITS IV CONT (09:45)
--- NOTE | 2020-10-14 10:42 | PC.NURSE ---
PT arrived on unit via stretcher awake and alert and accompanied by significant other and taken to room 281. PT oriented to room and surrounding area. PT introductions made and plan of care discussed per post op c section, pain management, breast feeding, daily care activities. PT received education and instructions per one to one discussion, demonstration and mom baby care guide book. PT and significant other both recipients of such instructions. No barriers to learning identified. Welcome packet reviewed and discussed.
[2020-10-14] MEDS: DEXTROSE 5%/0.45% SOD CHL 1,000 ML 125 ML IV CONT (11:45)
[2020-10-14] MEDS: diphenhydrAMINE HCl INJ 50 MG/ML VIAL (11:46)
--- NOTE | 2020-10-14 12:30 | PC.NURSE ---
Mother called out for assist with feeding. Mother reports infant eagerly fed for first feeding. Mother pumped with first child. Reviewed feeding cues, frequencies, duration of feedings, feeding elimination flow sheet, and signs of adequate intake. Demonstrated stimulation techniques to wake infant for feeding. Assisted with to breast. Reviewed positioning/alignment in football, holding breast in ?C? hold and guided asymmetrical latch on. able to latch correctly with first attempt. nursed eagerly, with steady draws and frequent swallowing noted. Reviewed signs of a correct latch, effective nursing and suck swallow ratio. Infant was able to maintain latch without discomfort to mother. would slip to shallow latch, mother reports tenderness. Demonstrated how to adjust latch more deeply while feeding if needed. Nipple care reviewed of lanolin after feedings, warm compresses as needed. Suggested mother stimulate while feeding to increase stimulate, increase intake and to assist with maintaining deep latch. Instructed mother to call out for RN assistance if she is unable to latch for feeding or she has discomfort with nursing. Instructed feeding should be initiated three hours from start of last feeding or if feeding cues are noted before. Mother voiced understanding of information shared.
[2020-10-14] MEDS: HYDROcodone/acetaminophen (*CRX) 5-325 MG TABLET 1 TAB PO ×3 (13:40→23:01)
[2020-10-14] MEDS: SIMETHICONE 80 MG TAB.CHEW PO (18:13)
[2020-10-14] MEDS: DOCUSATE SODIUM 100 MG CAPSULE PO (18:13)
[2020-10-14] MEDS: LANOLIN (LANSINOH) 7.5 GM CREAM 1 APPLIC TOPICAL (18:14)
[2020-10-14] MEDS: IBUPROFEN 600 MG TABLET PO (23:01)
[2020-10-15] MEDS: HYDROcodone/acetaminophen (*CRX) 5-325 MG TABLET 1 TAB PO ×6 (02:29→21:15)
[2020-10-15 04:00] VITALS: BP 105/69; PULSE 94; RESP 16; TEMP 36.7; O2SAT 96
[2020-10-15 05:13] LABS: Basophils Percent Auto 0.3 % (0.2-1.2); Eosinophils Absolute Auto 0.1 K/mm3 (0-0.3); Eosinophils Percent Auto 1.2 % (0-4.4); Immature Granulocyte Absolute 0.06 K/mm3 (0.00-0.031); Immature Granulocyte Percent A 0.5 % (0-0.5); Mean Corpuscular Hemoglobin 25.7 pg (26-34); Mean Corpuscular Volume 82.9 fl (80-100); Mean Platelet Volume 10.4 fl (7.4-10.4); Monocytes Absolute Auto 0.9 K/mm3 (0.1-0.6); Monocytes Percent Auto 7.6 % (2.6-8.5); Neutrophils Absolute Auto 8.8 K/mm3 (1.3-6.7); Neutrophils Percent Auto 74.4 % (45.5-73.1); Platelet Count Result 285 k/mm3 (150-375); Red Cell Distribution Width 14.7 % (11.5-14.5); White Blood Count 11.9 K/mm3 (4.5-10.0)
[2020-10-15] MEDS: IBUPROFEN 600 MG TABLET PO ×3 (05:43→21:15)
--- NOTE | 2020-10-15 07:23 | WPDANLDPN2 ---
Anes-Prog Note L&D Date/Time: 10/15/20 07:23 Comfortable throughout: section Neuraxial method: spinal Epidural/Spinal procedure site: clean & non-tender Neuro status: Neuro function grossly intact. Cardiovascular status: normal Respiratory status: normal Airway patency: baseline Mental status: baseline Post-Op hydration status: normal Vital Signs: Last Vital Signs Temp 36.7 C 10/15/20 04:00 Pulse 94 10/15/20 04:00 Resp 16 10/15/20 04:00 BP 105/69 10/15/20 04:00 Pulse Ox 96 10/15/20 04:00 Pain score (VAS): 3 I/O: Intake & Output 10/14/20 10/14/20 10/15/20 15:59 23:59 07:59 Intake Total 300 1400 Output Total 525 6744 102 Balance -225 719 -1024 Post-procedural complaints: none Patient feedback: Patient satisfied with anesthetic care.
--- NOTE | 2020-10-15 07:24 | WPDANLDNPN2 ---
Anes-Prog Note L&D-Neuraxial Date/Time: 10/15/20 07:24 Neuraxial medications: intrathecal PF morphine Opiod-related complaints: none Patient feedback: Patient satisfied with post-operative pain management.
[2020-10-15 07:45] VITALS: BP 145/92; PULSE 103; RESP 18; TEMP 36.1; O2SAT 98
[2020-10-15] MEDS: SIMETHICONE 80 MG TAB.CHEW PO ×2 (08:26→21:18)
[2020-10-15] MEDS: DOCUSATE SODIUM 100 MG CAPSULE PO ×2 (08:26→17:57)
[2020-10-15] MEDS: POLYSACCHARIDE IRON COMPLEX 150 MG CAPSULE PO ×2 (08:26→17:57)
[2020-10-15] MEDS: MULTIVIT/MIN/PREN/FOL AC/IRON TABLET 1 TAB PO (08:26)
--- NOTE | 2020-10-15 11:42 | PM.OBDSVD ---
DS: Admitting Diagnosis Admitting Diagnosis Admitting Diagnosis: DS: Discharge Diagnosis Discharge Diagnosis (1) 39 weeks gestation of : Code(s): Z3A.39 - 39 weeks gestation of Status: Acute OB - DS: Summary OB Procedures : None OB Procedures Intrapartum: OB Procedures: : None Peripartum Data Procedures: Procedures Operation Date: 10/14/20 07:30 Actual Procedure Side Surgeon p Section Not Applicable Wilson Walter MD Time Spent with Patient Time attestation: Total time spent providing and/or coordinating discharge services: DS: Data Data Completed and Pending Pending studies at discharge: Pending at discharge 10/14/20 08:57 Surgical [PTH] Routine Labs on day of discharge: Labs from last 24 hours 10/15/20 03:45 WBC 11.9 H RBC 3.50 L Hgb 9.0 L Hct 29.0 L MCV 82.9 MCH 25.7 L MCHC 31.0 L RDW 14.7 H Plt Count 285 MPV 10.4 Immature Gran % (Auto) 0.5 Neut % (Auto) 74.4 H Lymph % (Auto) 16.0 L [place] % (Auto) 7.6 Eos % (Auto) 1.2 Baso % (Auto) 0.3 Lymph # (Auto) 1.90 [place] # (Auto) 0.9 H Eos # (Auto) 0.1 Baso # (Auto) 0.0 Abs Immat Gran (auto) 0.06 H Absolute Neuts (auto) 8.8 H Absolute Nucleated RBC 0.0 Nucleated RBC % 0.0 Discharge Plan Discharge Discharging Clinician: Wilson Walter Anticipated Discharge Date/Time: 10/16/20 11:42 Patient Disposition: Home, Self-Care Activity: as tolerated Diet: as tolerated Wound Care Instructions: incision open to air Discharge Instructions: offiice tuesday/tuesday for staple removal Patient Instructions: Antibiotic Form, How to Stop Smoking (DC) Stand Alone Forms: General Discharge Information Follow-up/Referrals: Wilson Walter MD [Physician] - 3 Weeks Discharge Medications: New hydrocodone-acetaminophen 5-325 mg Tablet 1 tablet PO Q3H PRN (Reason: Moderate Pain (4-6)) Qty: 30 RF: 0 ibuprofen 600 mg Tablet 600 mg PO Q6H PRN (Reason: Cramping) Qty: 30 RF: 0 Continued hydroxyzine HCl 25 mg tablet 25 mg PO DAILY RF: 0 PNV cmb#95-ferrous fumarate-FA [] 28 mg iron- 800 mcg Tablet 1 tablet PO DAILY RF: 0 melatonin 5 mg Tablet 5 mg PO HS PRN (Reason: sleep) RF: 0 Date of admission: 10/14/20 05:04 Primary Care Provider: PHYSICIAN,PROPAGATION MANAGER Admitting Provider: Wilson Walter Attending physician on admission: Wilson Walter Condition: Stable
[2020-10-15 20:00] VITALS: BP 120/76; PULSE 93; RESP 16; TEMP 36.8; O2SAT 100
[2020-10-16] MEDS: HYDROcodone/acetaminophen (*CRX) 5-325 MG TABLET 1 TAB PO ×4 (00:20→10:51)
[2020-10-16] MEDS: IBUPROFEN 600 MG TABLET PO ×2 (03:21→06:46)
[2020-10-16] MEDS: TETANUS,DIPHTHERIA,AC PERTUSSIS ADULT (0.5 ML) BOOSTRIX IM (03:22)
[2020-10-16] MEDS: SIMETHICONE 80 MG TAB.CHEW PO (04:18)
[2020-10-16] MEDS: POLYSACCHARIDE IRON COMPLEX 150 MG CAPSULE PO (06:46)
[2020-10-16] MEDS: MULTIVIT/MIN/PREN/FOL AC/IRON TABLET 1 TAB PO (06:46)
[2020-10-16] MEDS: DOCUSATE SODIUM 100 MG CAPSULE PO (06:46)
[2020-10-16 07:50] VITALS: BP 135/76; PULSE 87; RESP 18; TEMP 37.3; O2SAT 100
[2020-10-16] MEDS: MEASLES,MUMPS,RUBELLA VACCINE 0.5 ML VIAL SUB-Q (08:56)
--- NOTE | 2020-10-16 09:50 | PC.NURSE ---
Mother is able to independently latch infant with appropriate positioning/alignment. She denies any nipple discomfort, is feeding as required and waking to feed if needed. has had at least 8 effective feedings in the past 24 hours, and is currently meeting outcomes for weight, output, jaundice and feeding frequencies. Mother has initiated supplementation until her milk is in, she is concerned is not getting enough. Suggested mother give small amounts by paced feeding Mother plans to discontinue supplement once infant is more satisfied. Mother states she feels confident to continue effective at home. Reviewed transition to breast milk, signs of adequate intake, and engorgement/relief. Instructed to call ICP if intake/output less than required. Reviewed regular medications mother is taking. Information provided per Mary. Reviewed community resources on the [facility] website and in the Mom/Baby guide. Information on outpatient services provided. Mother has no further questions at this time.
--- NOTE | 2020-10-16 10:00 | PC.NURSE ---
Patient instructed to view the discharge video Mother & Baby Care, The First Two Weeks . Patient was given the opportunity and encouraged to ask questions. Patient verbalized understanding of information shared and has been given the mother/baby guide for home reference.
[2020-10-17 09:21] VITALS: BP 123/84; PULSE 101; RESP 20; TEMP 36.9; O2SAT 100
--- NOTE | 2020-10-22 02:22 | PM.OBDSVD ---
DS: Admitting Diagnosis Admitting Diagnosis Admitting Diagnosis: OB - DS: Summary OB Procedures : None OB Procedures Intrapartum: OB Procedures: : None Peripartum Data Procedures: Procedures Operation Date: 10/14/20 07:30 Actual Procedure Side Surgeon p Section Not Applicable Wilson Walter MD Time Spent with Patient Time attestation: Total time spent providing and/or coordinating discharge services: DS: Data Data Completed and Pending Completed studies during hospitalization: Pending at discharge 10/14/20 08:57 Surgical [PTH] Routine Discharge Plan Discharge Consulting providers: Jeffry Jenkins Discharging Clinician: Wilson Walter Anticipated Discharge Date/Time: 10/16/20 11:42 Patient Disposition: Home, Self-Care Activity: as tolerated Diet: as tolerated Wound Care Instructions: incision open to air Discharge Instructions: offiice tuesday/tuesday for staple removal Education: Mom and Baby Guide and Preeclampsia Handout Given to: Mother Follow-Up: Call your delivering provider's office for an appointment to be seen in: 1 Week Mom and baby should come to the [facility] for the follow-up appointment. Appointment Date/Time: October 17, 2020 at 9:00 am What to expect at your follow-up visit: Physical Assessment Call [phone] if you are unable to keep your appointment time. BREAST CARE: * Wear a snug supportive bra. * For engorgement discomfort: Breast Feeding: * Apply warm moist washcloths * Express milk as needed to relieve engorgement * Wear loose clothing Bottle Feeding: * May apply ice packs * For sore nipples: * Identify correct latch-on * Apply warm moist washcloths before and after nursing * Air dry nipples after nursing * May apply Lansinoh cream to nipples ABDOMINAL INCISION: (if applicable) * Allow incision to air dry * Do NOT use lotions for powders on your incision * When showering, allow soap and water to run over the incision, but do not wash incision EPISIOTOMY/PERINEAL CARE: * Until bleeding stops, use your michael bottle after urinating * Change your pad frequently throughout the day * You may take sitz baths several times a day (fill your bathtub with warm water and soak for 20 minutes.) Do NOT bathe in the water * No tub baths until seen by your physician - You may shower ACTIVITY: * Rest as much as possible. * Do not exercise or lift anything heavier than your baby (such as laundry or other children.) * Avoid stairs or driving as much as possible. * Do not put anything into the vagina. No douching, tampons, or sexual activity until seen by physician. NOTIFY PHYSICIAN IF YOU HAVE ANY QUESTIONS OR IF ANY OF THE FOLLOWING SYMPTOMS OCCUR: * If your incision becomes red, swollen, or more painful than what you have experienced in the hospital. * If your vaginal bleeding becomes foul smelling. * If your vaginal bleeding becomes more heavy than a period or if your bleeding changes from pink to bright red. However, you may pass an occasional walnut-sized clot once or twice for the first week . * If you experience a sharp, shooting pain in you calves. * If you discover a hard, reddened area on your breast or if you experience flu-like symptoms. DIET: * Eat regular, well-balanced meals. * Drink plenty of fluids daily. If , drink to thirst. Patient Instructions: How to Stop Smoking (DC) Stand Alone Forms: General Discharge Information Follow-up/Referrals: Wilson Walter MD [Physician] - 3 Weeks Discharge Medications: New ibuprofen 600 mg Tablet 600 mg PO Q6H PRN (Reason: Cramping) Qty: 30 RF: 0 hydrocodone-acetaminophen 5-325 mg Tablet 1 tablet PO Q3H PRN (Reason: Moderate Pain (4-6)) Qty: 30 RF: 0 Continued hydroxyzine HCl 25 mg tablet 2
== END 2020-10-16 11:15 | disposition home or self-care (01) | DRG 540 ==
LOC: ANHLDR 05:26 → ANHOB2 10:47
PROVIDERS: Admitting Provider Obstetrics & Gynecology; Visit Provider Obstetrics & Gynecology
PROC: 10D00Z1 Extraction of Products of Conception, Low, Open Approach (ICD-10-PCS; CPT 59514; principal; 2020-10-14 07:30)
DX: O34.211 Maternal care for low transverse scar from previous cesarean delivery (principal); O24.429 Gestational diabetes mellitus in childbirth, unspecified control; O99.214 Obesity complicating childbirth; O99.334 Smoking (tobacco) complicating childbirth; F17.290 Nicotine dependence, other tobacco product, uncomplicated; Z3A.39 39 weeks gestation of pregnancy; Z37.0 Single live birth
CPT/HCPCS: 36415; 82948; 85025; 88307; 90710; 90715; A9270; J0131; J1200; J1885; J2274; J2405; J2590; J7120

== ENCOUNTER 2021-03-25 11:37 | Emergency (ER) | payer OTHER, SELFPAY ==
--- NOTE | ~2021-03-25 | XR_ITS ---
XR chest 1V portable DATE: 03/25/2021 12:04 INDICATION: Chest pain and shortness of breath TECHNIQUE: Portable upright AP chest on 03/25/2021 at 1202 hours COMPARISON: 05/26/2016 PA chest FINDINGS: Normal heart size. No hilar or mediastinal enlargement. No pulmonary infiltrate or consolid ation, pleural effusion or pulmonary vascular congestion or pneumothorax is detected. IMPRESSION: No active cardiopulmonary disease Reviewed, dictated and finalized at location A. REPAIRER
--- NOTE | 2021-03-25 11:41 | ECG_ITS ---
Measurements Intervals [place] Rate: 77 P: 20 MI: 137 QRS: 7 QRSD: 89 T: 11 QT: 356 QTc: 403 Interpretive Statements SINUS RHYTHM BORDERLINE T WAVE ABNORMALITY- ANTERIOR LEADS BORDERLINE ECG Electronically Signed On 03-25-2021 14:51:59 CAP MACHINE OPERATOR by Guillaume Ayers D.O.
[2021-03-25 11:43] VITALS: BP 125/86; PULSE 99; RESP 14; TEMP 36.7; O2SAT 97
[2021-03-25 12:16] LABS: Basophils Absolute Auto 0.1 K/mm3 (0.0-0.1); Basophils Percent Auto 0.5 % (0.2-1.2); Eosinophils Absolute Auto 0.2 K/mm3 (0-0.3); Eosinophils Percent Auto 1.4 % (0-4.4); Hematocrit 39.2 % (37.0-47.0); Hemoglobin 12.8 g/dL (12.0-15.0); Immature Granulocyte Absolute 0.03 K/mm3 (0.00-0.031); Immature Granulocyte Percent A 0.2 % (0-0.5); Lymphocytes Absolute Auto 2.52 K/mm3 (0.9-3.2); Lymphocytes Percent Auto 19.6 % (18.3-44.2); Mean Corpuscular HGB Conc 32.7 g/dl (32-36); Mean Corpuscular Hemoglobin 27.4 pg (26-34); Mean Corpuscular Volume 83.8 fl (80-100); Mean Platelet Volume 9.7 fl (7.4-10.4); Monocytes Absolute Auto 0.5 K/mm3 (0.1-0.6); Monocytes Percent Auto 3.6 % (2.6-8.5); Neutrophils Absolute Auto 9.6 K/mm3 (1.3-6.7); Neutrophils Percent Auto 74.7 % (45.5-73.1); Platelet Count Result 433 k/mm3 (150-375); Red Blood Count 4.68 M/mm3 (4.2-5.4); Red Cell Distribution Width 14.6 % (11.5-14.5); White Blood Count 12.9 K/mm3 (4.5-10.0)
[2021-03-25 12:26] LABS: INR 0.9; Prothrombin Time 12.3 Seconds (11.1-14.7)
[2021-03-25 12:27] LABS: Partial Thromboplastin Time 26.7 SECONDS (22.3-36.8)
[2021-03-25 12:29] LABS: D Dimer 0.29 ug/mL (<0.48)
[2021-03-25 12:30] LABS: Alanine Aminotransferase 20 U/L (4-35); Albumin Level 4.2 g/dL (3.5-5.1); Alkaline Phosphatase 75 U/L (38-126); Anion Gap 10 mmol/L (8-16); Aspartate Amino Transferase 21 U/L (14-36); Bilirubin,Total 0.4 mg/dL (0.2-1.3); Blood Urea Nitrogen 14 mg/dL (7-17); Calcium 8.9 mg/dL (8.4-10.2); Carbon Dioxide 25 mmol/L (22-30); Chloride 99 mmol/L (98-107); Estimated CRCL calculation 142 ml/min; Estimated Glomerular Filt Rate > 60; Glucose 121 mg/dL (65-110); Lipase 84 U/L (23-300); Potassium 3.5 mmol/L (3.4-5.0); Sodium 134 mmol/L (137-145)
--- NOTE | 2021-03-25 12:32 | ED.SOB ---
HPI - SOB/Dyspnea General Chief Complaint: Shortness of Breath/Dyspnea Stated Complaint: cp, sob 1 month post covid Time Seen by Provider: 03/25/21 11:41 Source: patient and RN notes reviewed Mode of arrival: ambulatory Limitations: no limitations History of Present Illness HPI Narrative: This is a 25 year old female smoker who presents for evaluation of chest pain and shortness of breath. She reports being diagnosed with COVID 1 month ago. Since her diagnosis she reports continued coughing with intermittent chest pain and shortness of breath. She reports midsternal chest pain that seems to occur more with deep inspiration or coughing. She also reports her pain is worse with exertion. She states today her symptoms seemed worse so she came to ER. She denies fever, chills, nausea, vomiting or wheezing. She denies being diagnosed with COVID pneumonia previously. Related Data Home Medications Medication Instructions Recorded Confirmed hydroxyzine HCl 25 mg PO DAILY 08/23/20 10/14/20 PNV cmb#95-ferrous fumarate-FA 1 tablet PO DAILY 09/24/20 09/24/20 [] melatonin 5 mg PO HS PRN 10/14/20 10/14/20 Allergies Allergy/AdvReac Type Severity Reaction Status Date / Time amoxicillin Allergy Severe Swelling Verified 03/25/21 11:38 of Lip/Tongue/Throat adhesive tape Allergy Mild Rash Verified 03/25/21 11:38 Review of Systems Review of Systems: All systems reviewed & are unremarkable except as noted in HPI and below PMFSH Past Medical History Medical History (Updated 03/25/21 @ 16:21 by Judith Trinh MD) Anxiety Depression Eczema HTN (hypertension) Hypercholesterolemia Migraine Morbid obesity with BMI of 40.0-44.9, adult Surgical History Surgical History History of section Family History Family History Mother Anxiety Depression Bipolar 1 disorder Hypertension Migraines Father Diabetes mellitus Acute myocardial infarction, Onset Age: 49 Kidney failure Social History Social History Smoking status: Current every day smoker Tobacco type: e-cigarettes/vaping Second hand tobacco smoke exposure: Yes Alcohol intake: never Substance use: never Substance use type: marijuana Gender identity (if verbalized by the patient): Female Spiritual care concerns: No Exam Narrative: GENERAL: Well-appearing, well-nourished, and in no acute distress. HEAD: Normocephalic, atraumatic EYES: PERRLA and EOMI, conjunctiva clear without discharge EARS: TM's clear bilaterally without erythema or dullness NOSE: Nares clear, no rhinorrhea or epistaxis THROAT:Mucous membranes moist, Oropharynx normal without erythema, exudate, peritonsillar swelling or fluctuance NECK: Supple, without lymphadenopathy or mass RESPIRATORY: No respiratory distress, Airway patent, Respirations non-labored, Clear to auscultation without rales, rhonchi or wheeze HEART: Regular rate and rhythm. No murmur heard. Normal peripheral pulses. ABDOMEN: Soft, nontender, nondistended, normal active bowel sounds. No masses. No rebound or guarding, No organomegaly. EXTREMITIES: No edema, normal strength with full range of motion. SKIN: Warm, dry, normal color without rash NEURO: Alert and oriented x3. CN 2-12 grossly intact. No focal deficits. PSYCH: Normal mood and affect. Const: General: no acute distress and alert Orientation/consciousness: patient oriented x3 Course Reevaluation(s) Reevaluation #1: Patient's labs are unremarkable other than leukocytosis. She reports worsening cough so I Will start on antibiotics and she was given inhaler. Date: 03/25/21 Time: 16:19 Vital Signs Vital signs: Vital Signs Temperature 98.0 F 03/25/21 11:43 Pulse Rate 99 03/25/21 11:43 Respiratory Rate 1
[2021-03-25 12:41] LABS: Troponin I < 0.012 ng/mL (0.000-0.034)
[2021-03-25] MEDS: KETOROLAC 30 MG/ML VIAL (*BKC) IV PUSH (13:04)
[2021-03-25] MEDS: ALBUTEROL SULFATE (*SP) AEROSOL 1 PUFF 2 PUFF INHALATION (13:29)
[2021-03-25 14:05] LABS: Alveolar/Arterial O2 Gradient 19.4 mmHg; Carboxyhemoglobin 0.4 % THb (0-2.0); Fractional Inspired Oxygen 21 %; HCO3 ABG 26.2 mEq/l (22.0-26.0); Methemoglobin ABG 0.2 %THb (0-1.5); Oxygen Content ABG 18.4 %vol (16.0-22.0); Oxygen Saturation ABG 96.5 % (95.0-100.0); Oxyhemoglobin 95.4 % THb (90.0-100.0); PCO2 ABG 39.5 mmHg (35.0-45.0); PO2 FiO2 Ratio Arterial Blood 3.95 %; Total Hemoglobin 13.7 g/dL (12.0-18.0); pH ABG 7.439 (7.350-7.450)
[2021-03-25 14:06] LABS: Device ROOM AIR; Modified Allen's Test Pass; Site Drawn LEFT RADIAL
[2021-03-25 15:22] VITALS: BP 122/86; PULSE 92; RESP 14; O2SAT 99
[2021-03-25 15:35] LABS: Troponin I < 0.012 ng/mL (0.000-0.034)
== END 2021-03-25 16:47 | disposition home or self-care (01) ==
PROVIDERS: Emergency Provider General Practice; PCP Physician Assistant
DX: R07.9 Chest pain, unspecified (principal); D72.829 Elevated white blood cell count, unspecified; I10 Essential (primary) hypertension; E78.5 Hyperlipidemia, unspecified; F41.9 Anxiety disorder, unspecified; F32.9 Major depressive disorder, single episode, unspecified
CPT/HCPCS: 36415; 36600; 71045; 80053; 82375; 82805; 83050; 83690; 84484; 85025; 85380; 85610; 85730; 93005; 94640; 96374; 99284; A9270; J1885

== ENCOUNTER 2021-04-07 10:03 | Outpatient (CLI) | payer OTHER, SELFPAY ==
[2021-04-07 11:07] LABS: Beta HCG Quantitative < 2.39 mIU/ML
== END 2021-04-07 10:04 | disposition home or self-care (01) ==
PROVIDERS: PCP Physician Assistant; Visit Provider Obstetrics & Gynecology
DX: N92.6 Irregular menstruation, unspecified (principal)
CPT/HCPCS: 36415; 84702

== ENCOUNTER 2021-04-27 21:58 | Emergency (ER) | payer OTHER, SELFPAY ==
[2021-04-27 22:01] VITALS: BP 139/79; PULSE 126; RESP 18; TEMP 38.3; O2SAT 100
--- NOTE | 2021-04-27 23:24 | PC.NURSE ---
pt left at this time before seeing provider. stating I'll just see if some rest helps.
== END 2021-04-28 04:16 | disposition left against medical advice (07) ==
PROVIDERS: PCP Physician Assistant
DX: Z53.21 Procedure and treatment not carried out due to patient leaving prior to being seen by health care provider (principal)
CPT/HCPCS: 99199

== ENCOUNTER 2021-04-29 09:05 | Emergency (ER) | payer OTHER, SELFPAY ==
[2021-04-29 09:15] VITALS: BP 115/71; PULSE 102; RESP 16; TEMP 36.7; O2SAT 99
--- NOTE | 2021-04-29 09:49 | ED.URI ---
HPI - URI/Sore Throat General Chief Complaint: Upper Respiratory Infection Stated Complaint: sore throat Time Seen by Provider: 04/29/21 09:36 Source: patient and RN notes reviewed Mode of arrival: ambulatory Limitations: no limitations History of Present Illness HPI Narrative: Patient presents today with a 2-day history of sore throat. Patient had a fever up to 101.22 days ago that resolved. Associated symptoms include intermittent headache and ear pain. She currently rates her sore throat 7/10 and has been taking Tylenol, ibuprofen, and NyQuil without much relief. Patient had COVID-19 2 months ago. MD elicited complaint: sore throat Related Data Home Medications Medication Instructions Recorded Confirmed hydroxyzine HCl 25 mg PO DAILY 08/23/20 10/14/20 PNV cmb#95-ferrous fumarate-FA 1 tablet PO DAILY 09/24/20 09/24/20 [] melatonin 5 mg PO HS PRN 10/14/20 10/14/20 Allergies Allergy/AdvReac Type Severity Reaction Status Date / Time amoxicillin Allergy Severe Swelling Verified 04/27/21 22:06 of Lip/Tongue/Throat adhesive tape Allergy Mild Rash Verified 04/27/21 22:06 Review of Systems Review of Systems: CONSTITUTIONAL: Denies body aches, chills, or sweats.+ Fever?resolved EYES: Denies visual changes, redness, or discharge. ENT: Denies rhinorrhea, congestion.+ Sore throat, intermittent ear pain CARDIOVASCULAR: Denies chest pain, palpitations, or edema. RESPIRATORY: Denies cough or dyspnea. GASTROINTESTINAL: Denies abdominal pain, nausea, vomiting, or diarrhea. GENITOURINARY: Denies dysuria or hematuria. SKIN: Denies rash, itching, or wounds. MUSCULOSKELETAL: Denies back pain, joint pain, or myalgia. NEUROLOGIC: Denies numbness, tingling, or weakness.+ Headache PSYCH: Denies depression or anxiety. [facility] Past Medical History Medical History (Updated 04/29/21 @ 09:53 by Kaelyn Funes, LIDIA, FLORENCIO) Anxiety Depression Eczema HTN (hypertension) Hypercholesterolemia Migraine Morbid obesity with BMI of 40.0-44.9, adult Surgical History Surgical History History of section Family History Family History Mother Anxiety Depression Bipolar 1 disorder Hypertension Migraines Father Diabetes mellitus Acute myocardial infarction, Onset Age: 49 Kidney failure Social History Social History Smoking status: Current every day smoker Tobacco type: e-cigarettes/vaping Second hand tobacco smoke exposure: Yes Alcohol intake: never Substance use: never Substance use type: marijuana Gender identity (if verbalized by the patient): Female Spiritual care concerns: No Comments At time of signature, I have reviewed and agree with nursing past medical, surgical, social and family history unless otherwise noted. Please see nursing chart for further information. There is no relevant family history pertinent to the presenting complaint Exam Narrative: GENERAL: Mildly ill-appearing, well-nourished, and in no acute distress. HEAD: Normocephalic, atraumatic. EYES: EOMI. No redness or drainage. Conjunctivae normal. ENT: Mucous membranes pink and moist. Nares clear. No rhinorrhea. TMs normal bilaterally. Throat erythematous. Tonsils 3+ with small amount of white exudate. Uvula midline. NECK: Normal AROM. Supple. No lymphadenopathy. CHEST: No respiratory distress. Clear to auscultation. HEART: Regular rate and rhythm. No murmur appreciated. Normal peripheral pulses. EXTREMITIES: Normal range of motion. No edema. SKIN: Warm, dry, no rash. Capillary refill normal. Normal skin turgor. NEURO: No focal deficits. Alert and oriented x3. Gait steady. PSYCH: Normal affect. No signs of depression or anxiety. Course Vital Signs Vital signs: Vital Signs Temperatur
== END 2021-04-29 11:03 | disposition home or self-care (01) ==
PROVIDERS: Emergency Provider Nurse Practitioner; PCP Physician Assistant
DX: J02.9 Acute pharyngitis, unspecified (principal); I10 Essential (primary) hypertension; E78.00 Pure hypercholesterolemia, unspecified; E66.01 Morbid (severe) obesity due to excess calories; Z68.37 Body mass index [BMI] 37.0-37.9, adult; F17.290 Nicotine dependence, other tobacco product, uncomplicated; Z86.16 Personal history of COVID-19
CPT/HCPCS: 87081; 87880; 99213; G0463

== ENCOUNTER 2021-05-05 12:25 | Outpatient (CLI) | payer OTHER, SELFPAY ==
--- NOTE | 2021-05-05 | ECHO_ITS ---
Patient Info Name: Jacinta Rodrigues Age: 25 years : 1995 Gender: Female Ht: 60 in Wt: 200 lbs BSA: 2.01 m2 HR: 90 bpm BP: 104 / 81 mmHg Heart Rhythm: Sinus Rhythm Technical Quality: Fair Exam Date: 05/05/2021 12:45 PM Exam Location: [facility] Patient Status: Outpatient Admit Date: 05/05/2021 Staff Ordering Physician: RaquelAlecia [employer] Specialist: Nelly Schuster RDCS Attending Provider: Raquel, Alecia HERNANDEZ Referring Physician: Raquel MEJIA; Exam Type: CA echo doppler color flow Study Info Indications - HEARD Complete two-dimensional, color flow and Doppler transthoracic echocardiogram is performed. Summary 1. Complete two-dimensional, color flow and Doppler transthoracic echocardiogram is performed. 2. Left ventricular chamber dimension is normal. 3. Left ventricular systolic function is normal, estimated at 60-65%. 4. There is no increased left ventricular wall thickness. 5. Left ventricular septal wall motion is normal. 6. The left ventricular diastolic function is normal. 7. There is mild tricuspid valve regurgitation. 8. There is mild pulmonic regurgitation. Left Ventricle Left ventricular chamber dimension is normal. Left ventricular systolic function is normal, estimated at 60-65%. There is no increased left ventricular wall thickness. Left ventricular septal wall motion is normal. The left ventricular diastolic function is normal. Right Ventricle Right ventricular chamber dimension is normal. Right ventricular systolic function is normal. Left Atria Left atrial chamber dimension is normal. Right Atria Right atrial chamber dimension is normal. Atrial Septum Intact interatrial septum visualized by color flow imaging. Aortic Valve The aortic valve is trileaflet. There is no aortic valve sclerosis. There is no aortic valve stenosis. There is trace aortic valve regurgitation. Pulmonic Valve The pulmonic valve is normal. There is no pulmonic valve stenosis. There is mild pulmonic regurgitation. Mitral Valve The mitral valve has normal leaflets. There is no mitral valve stenosis. There is trace mitral valve regurgitation. Tricuspid Valve The tricuspid valve leaflets are normal. There is no significant tricuspid valve stenosis. There is mild tricuspid valve regurgitation. No pulmonary hypertension, estimated pulmonary arterial systolic pressure is 24 mmHg. Pericardium/Pleural The pericardium appears normal. There is trivial pericardial effusion. Inferior Vena Cava Normal inferior vena cava with >50% collapse upon inspiration consistent with normal right atrial pressure, 8 mmHg. Aorta The aortic root size at the sinus of Valsalva is normal. The prox ascending aorta size is normal. Left Ventricular Outflow Tract Name Value Normal LVOT 2D LVOT Diameter 2.0 cm LVOT Doppler LVOT Peak Gradient 3 mmHg LVOT Mean Gradient 2 mmHg LVOT VTI 15 cm LVOT VTI/AV VTI Ratio 0.6 LVOT Stroke Volu
== END 2021-05-05 12:26 | disposition home or self-care (01) ==
PROVIDERS: PCP Physician Assistant; Visit Provider Physician Assistant
DX: R06.09 Other forms of dyspnea (principal); I07.1 Rheumatic tricuspid insufficiency; I37.1 Nonrheumatic pulmonary valve insufficiency
CPT/HCPCS: 93306

== ENCOUNTER 2021-08-12 14:15 | Emergency (ER) | payer OTHER, SELFPAY ==
--- NOTE | ~2021-08-12 | XR_ITS ---
EXAMINATION: XR ankle RT min 3V DATE: 08/12/2021 14:45 INDICATION: Right ankle pain. Fall. TECHNIQUE: 4 views of right ankle were obtained. COMPARISON: None. FINDINGS: Bone alignment is normal. No fracture. Joint spaces are well maintained. IMPRESSION: 1. Normal right ankle. Reviewed, dictated and finalized at location A. IMPRESSION: 1. Normal right ankle.
[2021-08-12 14:27] VITALS: BP 131/71; PULSE 124; RESP 20; TEMP 36.7; O2SAT 100
--- NOTE | 2021-08-12 14:46 | ED.LOWEXIN ---
HPI - Extremity Injury (Lower) General Chief Complaint: Extremity Injury, Lower Stated Complaint: right ankle injury Time Seen by Provider: 08/12/21 14:32 Source: RN notes reviewed History of Present Illness HPI Narrative: Patient presents to emergency room from home for right ankle pain. Patient states approximate 1 hour prior to arrival she was walking on the stairs and she slipped rolling her right ankle she states that since that time she had pain in the right lateral ankle she denies falling to the ground or any other injury states she does take Aleve at home for the pain with no relief she denies any fevers or chills numbness or tingling in the extremities or any other symptoms of concern Related Data Home Medications Medication Instructions Recorded Confirmed hydroxyzine HCl 25 mg PO DAILY 08/23/20 10/14/20 PNV cmb#95-ferrous fumarate-FA 1 tablet PO DAILY 09/24/20 09/24/20 [] melatonin 5 mg PO HS PRN 10/14/20 10/14/20 Allergies Allergy/AdvReac Type Severity Reaction Status Date / Time amoxicillin Allergy Severe Swelling Verified 04/27/21 22:06 of Lip/Tongue/Throat adhesive tape Allergy Mild Rash Verified 04/27/21 22:06 Review of Systems Review of Systems: Gen.: Denies fevers or chills Musculoskeletal: See HPI Neuro: Denies numbness, tingling, weakness Skin: Denies rash Endo: Denies DM PMFSH Past Medical History Medical History Anxiety Depression Eczema HTN (hypertension) Hypercholesterolemia Migraine Morbid obesity with BMI of 40.0-44.9, adult Surveillance for Depo-Provera contraception Surgical History Surgical History History of section Family History Family History Mother Anxiety Depression Bipolar 1 disorder Hypertension Migraines Father Diabetes mellitus Acute myocardial infarction, Onset Age: 49 Kidney failure Social History Social History Smoking status: Current every day smoker Tobacco type: e-cigarettes/vaping Second hand tobacco smoke exposure: Yes Alcohol intake: never Substance use: never Substance use type: marijuana Gender identity (if verbalized by the patient): Female Spiritual care concerns: No Exam Narrative: APPEARANCE: No acute distress, nontoxic, resting in bed Eyes: EOMI HEENT: Normocephalic, atraumatic, RESPIRATORY: No respiratory distress MUSCULOSKELETAl: Tender palpation of the right lateral malleolus with mild swelling present no tenderness over the anterior lateral ankle no tenderness of the proximal fibula or the base of the fifth metatarsal dorsalis pedis pulse 2+ neurovascular intact NEURO: Awake and alert. Following commands, speech normal, no focal deficits SKIN:: Warm, dry. Normal Color no rash or lesions Course Course Emergency Course: Discussed with patient results of workup and diagnosis. Discussed need for follow-up with primary care, proper use of medication, and reasons to return to the emergency department. Patient understands and agrees to current treatment plan Vital Signs Vital signs: Vital Signs Temperature 98.1 F 08/12/21 14:27 Pulse Rate 124 H 08/12/21 14:27 Respiratory Rate 20 08/12/21 14:27 Blood Pressure 131/71 08/12/21 14:27 Pulse Oximetry 100 08/12/21 14:27 Temperature 98.1 F 08/12/21 14:27 Pulse Rate 124 H 08/12/21 14:27 Respiratory Rate 20 08/12/21 14:27 Blood Pressure 131/71 08/12/21 14:27 Pulse Oximetry 100 08/12/21 14:27 MDM - Extremity Injury (Lower) Imaging Data Radiologist's impression: ITS Impressions Ankle X-Ray 08/12/21 14:45 IMPRESSION: 1. Normal right ankle. Discharge Plan Discharge Clinical Impression: Right ankle sprain Patient Dispositi
== END 2021-08-12 15:06 | disposition home or self-care (01) ==
LOC: ANHED 14:59
PROVIDERS: Emergency Provider Emergency Medicine; PCP Physician Assistant
DX: S93.401A Sprain of unspecified ligament of right ankle, initial encounter (principal); Z72.0 Tobacco use; F41.9 Anxiety disorder, unspecified; F32.9 Major depressive disorder, single episode, unspecified; I10 Essential (primary) hypertension; E78.5 Hyperlipidemia, unspecified; W18.40XA Slipping, tripping and stumbling without falling, unspecified, initial encounter
CPT/HCPCS: 73610; 99283

== ENCOUNTER 2022-02-11 13:52 | Emergency (ER) | payer OTHER, SELFPAY ==
[2022-02-11 14:17] VITALS: BP 132/81; PULSE 130; RESP 18; TEMP 37.5; O2SAT 100
--- NOTE | 2022-02-11 15:10 | ED.URI ---
HPI - URI/Sore Throat General Chief Complaint: Upper Respiratory Infection Stated Complaint: Sore Throat Time Seen by Provider: 02/11/22 15:11 Source: patient and RN notes reviewed Mode of arrival: ambulatory Limitations: no limitations History of Present Illness HPI Narrative: 26-year-old female presents to the [facility] with complaints of a sore throat. Patient states the sore throat started no treatment prior to arrival Related Data Home Medications Medication Instructions Recorded Confirmed medroxyprogesterone 150 mg/mL 150 mg IM [id number] 02/11/22 02/11/22 intramuscular syringe Allergies Allergy/AdvReac Type Severity Reaction Status Date / Time amoxicillin Allergy Severe Swelling Verified 02/11/22 14:24 of Lip/Tongue/Throat adhesive tape Allergy Mild Rash Verified 02/11/22 14:24 Review of Systems Review of Systems: All systems reviewed & are unremarkable except as noted in HPI and below Constitutional: Constitutional: Reports no additional constitutional complaints, Denies chills and Denies fever(s) Eyes: Eyes: Reports no additional eye complaints ENT: Reports as per HPI and Reports sore throat Cardiovascular: Cardiovascular: Reports no additional cardiovascular complaints Respiratory: Respiratory: Reports no additional respiratory complaints Gastrointestinal: Gastrointestinal: Reports no additional gastrointestinal complaints Musculoskeletal: Musculoskeletal: Reports no additional musculoskeletal complaints Integumentary/Breasts: Skin/Breast: Reports system reviewed and no additional complaints, except as docu Neurologic: Reports system reviewed and no additional complaints, except as documented Psychiatric: Psychiatric: Reports no additional psychiatric complaints Allergic/Immunologic: Allergic/Immunologic: Reports no additional allergic/immunologic complaints PMFSH Past Medical History Medical History Anxiety Depression Eczema HTN (hypertension) Hypercholesterolemia Migraine Morbid obesity with BMI of 40.0-44.9, adult Surveillance for Depo-Provera contraception Surgical History Surgical History History of section Family History Family History Mother Anxiety Depression Bipolar 1 disorder Hypertension Migraines Father Diabetes mellitus Acute myocardial infarction, Onset Age: 49 Kidney failure Social History Social History Smoking status: Current every day smoker Tobacco type: e-cigarettes/vaping Second hand tobacco smoke exposure: Yes Alcohol intake: never Substance use: never Substance use type: marijuana Gender identity (if verbalized by the patient): Female Spiritual care concerns: No Comments At the time of my signature, I reviewed and agree with the nursing past medical, surgical, social, and family history. There is no relevant family history pertinent to the patient complaint. Exam Const: General: healthy appearing, no acute distress, alert and well nourished Nutritional Appearance: well nourished and obese Orientation/consciousness: patient oriented x3 Limitations: no limitations HENMT: Head: normal to inspection Ears: external ears normal, TM's normal bilaterally and EAC's normal Face and sinus: normal facial exam and sinuses nontender Mouth: Yes Normal oral and palatal mucosa present, Yes lip normal and Yes moist mucous membranes Throat: uvula midline and abnormal tonsil bilateral erythema, exudates and hypertrophy 3+ Eyes: General: appearance normal, both eyes and all related structures Conjunctivae: conjunctivae normal Pupils: Equal, round and reactive pupils present Neck: Neck: normal visual inspection, no lymphadenopathy and no meningeal signs Chest: Chest palpati
== END 2022-02-11 16:04 | disposition home or self-care (01) ==
PROVIDERS: Emergency Provider Nurse Practitioner; PCP Physician Assistant
DX: J03.90 Acute tonsillitis, unspecified (principal); F17.290 Nicotine dependence, other tobacco product, uncomplicated; I10 Essential (primary) hypertension; E78.00 Pure hypercholesterolemia, unspecified; E66.01 Morbid (severe) obesity due to excess calories; Z68.41 Body mass index [BMI] 40.0-44.9, adult
CPT/HCPCS: 36416; 86308; 87081; 87880; 99213; G0463

== ENCOUNTER 2022-04-28 08:04 | Emergency (ER) | payer OTHER, SELFPAY ==
--- NOTE | ~2022-04-28 | XR_ITS ---
XR chest 2V DATE: 04/28/2022 09:27 INDICATION: Cough, chest congestion, upper respiratory infection. Covid and flu negative. TECHNIQUE: PA and lateral views COMPARISON: 03/25/2021 portable AP chest at 1202 hours FINDINGS: Normal heart size. No hilar or mediastinal enlargement. Lungs are normally inflated and clear of infiltrate or consolidation. No pleural effusion or pulmonar y vascular congestion or pneumothorax. IMPRESSION: Negative Reviewed, dictated and finalized at location B. ECTIONAL CAPTAIN IMPRESSION: Negative
[2022-04-28 08:06] VITALS: BP 116/74; PULSE 85; RESP 17; TEMP 36.4; O2SAT 100
[2022-04-28 08:55] LABS: Influenza A QL RT-PCR Negative (Negative); Influenza B QL RT-PCR Negative (Negative); RSV RNA, RT-PCR Negative (Negative); SARS-CoV-2 RNA PCR Negative
--- NOTE | 2022-04-28 09:17 | ED.URI ---
HPI - URI/Sore Throat General Chief Complaint: Upper Respiratory Infection Stated Complaint: URI Time Seen by Provider: 04/28/22 08:56 Source: patient Mode of arrival: ambulatory Limitations: no limitations History of Present Illness HPI Narrative: Patient is a 26-year-old female who presents the ED with report of upper respiratory symptoms. Patient reports she woke up Tuesday morning feeling unwell. She complains of sore throat, mild congestion, intermittent fevers, nausea. She states her throat hurts all the way down her esophagus when she swallows. She developed a mild cough today. Patient has been taking DayQuil, NyQuil, Tylenol for her symptoms. Denies any dysphagia, difficulty breathing, drooling, vomiting, abdominal pain, chest pain. Related Data Home Medications Medication Instructions Recorded Confirmed hydroxyzine HCl 10 mg tablet 10 mg PO TID PRN 04/07/22 04/07/22 melatonin 10 mg capsule 10 mg PO QHS 04/07/22 04/07/22 trazodone 50 mg tablet 50 mg PO QHS PRN 04/07/22 04/07/22 Allergies Allergy/AdvReac Type Severity Reaction Status Date / Time amoxicillin Allergy Severe Swelling Verified 04/28/22 08:09 of Lip/Tongue/Throat adhesive tape Allergy Mild Rash Verified 04/28/22 08:09 Review of Systems Review of Systems: CONSTITUTIONAL: Reports intermittent fever. ENT: Reports congestion, sore throat. Denies dysphagia, drooling. CARDIOVASCULAR: Denies chest pain. RESPIRATORY: Reports cough. Denies dyspnea. GASTROINTESTINAL: Reports nausea. Denies abdominal pain, vomiting, or diarrhea. GENITOURINARY: Denies dysuria or hematuria. All systems reviewed & are unremarkable except as noted in HPI and below PMFSH Past Medical History Medical History Anxiety Depression Eczema Encounter for screening examination for sexually transmitted disease HTN (hypertension) Hypercholesterolemia Migraine Missed (08/30/19) Morbid obesity with BMI of 40.0-44.9, adult Surveillance for Depo-Provera contraception Surgical History Surgical History History of section 10/14/16 primary c/s--arrest of dilation Forrest maternal pp hypertension 10/14/20 rpt c/s Cheryl History of dilation and curettage 08/30/19 suction d&c Family History Family History Mother Anxiety Depression Bipolar 1 disorder Hypertension Migraines Father Diabetes mellitus Acute myocardial infarction, Onset Age: 49 Kidney failure Heart disease Social History Social History Smoking status: Current every day smoker Tobacco type: e-cigarettes/vaping Second hand tobacco smoke exposure: Yes Alcohol intake: never Drinks per week: 1 Substance use: never Substance use type: marijuana Additional living arrangements comments: 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 HEAD: Normocephalic, atraumatic. EYES: PERRLA/EOMI, conjunctiva clear. ENT: MMs moist. Mild posterior pharynx erythema. Bilateral tonsillar hypertrophy, symmetric. No tonsillar exudate. Uvula midline. No dysphagia. No nasal discharge. NECK: Supple. Mild bilateral anterior lymphadenopathy, no masses. RESPIRATORY: Airway patent, respirations nonlabored. Clear to auscultation bilaterally, no rales, rhonchi, wheezing. CARDIOVASCULAR: Regular rate and rhythm without murmurs, rubs, or gallops. Radial pulses 2+ and equal bilaterally. MUSCULOSKELETAL: Moves all extremities. Strength/ROM intact without gross deformities. SKIN: Warm, dry, alfreda
[2022-04-28] MEDS: methylPREDNISolone SOD SUCC 125 MG VIAL IM (09:44)
[2022-04-28] MEDS: LIDOCAINE HCL 2% VISC SOLN 15 ML UDC PO (09:45)
[2022-04-28 10:03] LABS: Strep Group A RT-PCR NOT DETECTED (Negative)
== END 2022-04-28 10:56 | disposition home or self-care (01) ==
PROVIDERS: Emergency Medicine; Emergency Provider Physician Assistant; PCP Physician Assistant
DX: J06.9 Acute upper respiratory infection, unspecified (principal); J03.90 Acute tonsillitis, unspecified; Z20.822 Contact with and (suspected) exposure to COVID-19; I10 Essential (primary) hypertension; E78.00 Pure hypercholesterolemia, unspecified; E66.01 Morbid (severe) obesity due to excess calories; Z68.39 Body mass index [BMI] 39.0-39.9, adult; F32.A Depression, unspecified; F41.9 Anxiety disorder, unspecified; F17.290 Nicotine dependence, other tobacco product, uncomplicated
CPT/HCPCS: 71046; 87637; 87651; 96372; 99283; J2930

== ENCOUNTER 2022-05-24 16:48 | Outpatient (CLI) | payer OTHER, SELFPAY ==
[2022-05-24 17:50] LABS: Beta HCG Quantitative < 2.39 mIU/ML
[2022-05-24 18:14] LABS: HIV 1/2 Ab P24 Ag Result Negative (Negative)
[2022-05-24 19:08] LABS: Hepatitis B Surface Antigen Negative (Negative)
[2022-05-24 19:13] LABS: HAV RESULT Negative (Negative); Hepatitis B Core IgM Result Negative (Negative)
[2022-05-24 19:25] LABS: Hepatitis C Virus Antibody Negative (Negative)
[2022-05-25 10:00] LABS: Rapid Plasma Reagin Non-Reactive (NonReactive)
[2022-05-27 21:08] LABS: Prolactin 9.2 ng/mL (***)
== END 2022-05-24 16:49 | disposition home or self-care (01) ==
PROVIDERS: PCP Physician Assistant; Visit Provider Obstetrics & Gynecology
DX: N64.52 Nipple discharge (principal); Z11.3 Encounter for screening for infections with a predominantly sexual mode of transmission
CPT/HCPCS: 36415; 80074; 84146; 84702; 86592; 86703; G0432

== ENCOUNTER 2022-06-28 09:56 | Emergency (ER) | payer OTHER, SELFPAY ==
[2022-06-28 10:09] VITALS: BP 130/84; PULSE 115; RESP 20; TEMP 36.4; O2SAT 98
--- NOTE | 2022-06-28 10:51 | ED.URI ---
HPI - URI/Sore Throat General Chief Complaint: Upper Respiratory Infection Stated Complaint: cough,chest pain Time Seen by Provider: 06/28/22 10:51 History of Present Illness HPI Narrative: 26-year-old female presented for complaint of sore throat, states it feels dry, and endorses decreased appetite, cold sweats, sinus congestion and productive cough over the last 2 days. Taking Tylenol and Mucinex for symptoms. 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 She denies vomiting, diarrhea. Related Data Home Medications Medication Instructions Recorded Confirmed trazodone 50 mg tablet 50 mg PO QHS PRN Insomnia 04/07/22 06/28/22 fluoxetine 20 mg capsule (Prozac) 20 mg PO DAILY 05/24/22 06/28/22 gabapentin 100 mg capsule 100 mg PO TID 06/28/22 06/28/22 Allergies Allergy/AdvReac Type Severity Reaction Status Date / Time amoxicillin Allergy Severe Swelling Verified 06/28/22 10:11 of Lip/Tongue/Throat adhesive tape Allergy Mild Rash Verified 06/28/22 10:11 Review of Systems Review of Systems: per HPI PMFSH Past Medical History Medical History Anxiety Depression Eczema Encounter for screening examination for sexually transmitted disease HTN (hypertension) Hypercholesterolemia Migraine Missed (08/30/19) Morbid obesity with BMI of 40.0-44.9, adult Surveillance for Depo-Provera contraception Surgical History Surgical History History of section 10/14/16 primary c/s--arrest of dilation Forrest maternal pp hypertension 10/14/20 rpt c/s Cheryl History of dilation and curettage 08/30/19 suction d&c Family History Family History Mother Anxiety Depression Bipolar 1 disorder Hypertension Migraines Father Diabetes mellitus Acute myocardial infarction, Onset Age: 49 Kidney failure Heart disease Social History Social History Smoking status: Current every day smoker Tobacco type: e-cigarettes/vaping Second hand tobacco smoke exposure: Yes Alcohol intake: never Drinks per week: 1 Substance use: never Substance use type: marijuana Living arrangements: other Additional living arrangements comments: Occupation/Education: other 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 EYES: conjunctivae clear ENT: Mucous membranes moist. TMs pearly trevino with normal light reflex bilaterally; no tragal tenderness. Oropharynx erythematous Tonsils enlarged 3+ with exudate. No drooling, no hoarseness, no trismus, uvula midline. No tripod positioning, hot potato voice, or soft palate swelling. NECK: Supple. Bilateral anterior cervical lymphadenopathy CHEST: Clear to auscultation, breath sounds equal. No respiratory distress, speaks in full sentences. HEART: Regular rate and rhythm. No murmur heard. SKIN: Warm, dry, no rash. NEURO: Alert and oriented x3. Course Course Emergency Course: Patient is aware of diagnosis, understands and agrees to treatment plan. Anticipatory guidance given. Patient agrees to follow-up as directed and is aware of reasons to seek care at the emergency department. Portions of this record may have been created with voice recognition software Level of Care: Express Care Visit Vital Signs Vital signs: Vital Signs Temperature 97.6 F 06/28/22 10:09 Pulse Rate 115 H 06/28/22 10:09 Respiratory Rate 06/28/22 10:09 Blood Pressure 130/84 06/28/22 10:09 Pulse Oximetry 98 06/28/22 10:09 Oxygen Delivery Room Air
== END 2022-06-28 11:00 | disposition home or self-care (01) ==
PROVIDERS: Emergency Provider Nurse Practitioner Family; PCP Physician Assistant
DX: J02.0 Streptococcal pharyngitis (principal); F41.9 Anxiety disorder, unspecified; F32.A Depression, unspecified; I10 Essential (primary) hypertension; F17.290 Nicotine dependence, other tobacco product, uncomplicated
CPT/HCPCS: 87804; 87880; 99213; G0463

== ENCOUNTER 2022-07-14 12:54 | Outpatient (CLI) | payer OTHER, SELFPAY ==
--- NOTE | ~2022-07-14 | US_ITS ---
EXAMINATION: US breast RT limited HISTORY: Palpable lump of the lower inner right breast TECHNIQUE: Limited right breast ultrasound is performed. COMPARISON: 04/23/2019 FINDINGS: There is no focal cystic or solid mass in the vicinity of the reported palpable abnormality of concern. IMPRESSION: No specific sonographic correlate is identified for the reported palpable abnormality of concern. Fur ther evaluation at this time should be based on clinical assessment. Continued follow-up physical exa mination is recommended. BI-RADS Category 1: Negative Reviewed, dictated and finalized at location A. RECRUITER IMPRESSION: No specific sonographic correlate is identified for the reported palpable abnor mality of concern. Further evaluation at this time should be based on clinical assessment. Continued follow-up physical examination is recommended. BI-RADS Category 1: Negative
== END 2022-07-14 12:55 | disposition home or self-care (01) ==
PROVIDERS: PCP Physician Assistant; Visit Provider Physician Assistant
DX: N63.10 Unspecified lump in the right breast, unspecified quadrant (principal)
CPT/HCPCS: 76642

== ENCOUNTER 2022-09-08 16:00 | Emergency (ER) | payer OTHER, SELFPAY ==
[2022-09-08 16:09] VITALS: BP 126/76; PULSE 91; RESP 18; TEMP 36.4; O2SAT 100
--- NOTE | 2022-09-08 16:24 | ED.URI ---
HPI - URI/Sore Throat General Chief Complaint: Upper Respiratory Infection Stated Complaint: cough,congestion Time Seen by Provider: 09/08/22 16:24 Source: patient Mode of arrival: ambulatory Limitations: no limitations History of Present Illness HPI Narrative: Patient is a 26-year-old female that presents with productive cough, headache, sore throat for 3 days. Patient has taken 7 at home COVID tests with 1 being positive followed by 2 negative tests. 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 Patient denies any fever, shortness of breath, nausea, vomiting, diarrhea. Related Data Home Medications Medication Instructions Recorded Confirmed fluoxetine 20 mg capsule (Prozac) 20 mg PO DAILY 05/24/22 09/08/22 gabapentin 100 mg capsule 100 mg PO TID 06/28/22 09/08/22 Allergies Allergy/AdvReac Type Severity Reaction Status Date / Time amoxicillin Allergy Severe Swelling Verified 09/08/22 16:11 of Lip/Tongue/Throat adhesive tape Allergy Mild Rash Verified 09/08/22 16:11 Review of Systems Review of Systems: All systems reviewed & are unremarkable except as noted in HPI and below Constitutional: Constitutional: Denies body ache(s), Denies chills, Denies fatigue, Denies fever(s), Reports headache(s), Denies malaise and Denies weakness Eyes: Eyes: Denies blurry vision, Denies itchy eyes and Denies loss of vision ENT: Denies otalgia, Denies headache(s), Denies nasal congestion, Denies sinus pain and Reports sore throat Cardiovascular: Cardiovascular: Denies chest pain, Denies irregular heart rhythm and Denies dyspnea Respiratory: Respiratory: Reports cough and Denies dyspnea Gastrointestinal: Gastrointestinal: Denies abdominal pain, Denies diarrhea, Denies nausea and Denies vomiting Musculoskeletal: Musculoskeletal: Denies back pain, Denies myalgias and Denies arthralgias Integumentary/Breasts: Skin/Breast: Denies pruritus and Denies rash Neurologic: Denies headache(s), Denies loss of vision and Denies weakness Psychiatric: Psychiatric: Reports no additional psychiatric complaints Endocrine: Endocrine: Denies fatigue Allergic/Immunologic: Allergic/Immunologic: Denies itchy eyes PMFSH Past Medical History Medical History Anxiety Depression Eczema Encounter for screening examination for sexually transmitted disease HTN (hypertension) Hypercholesterolemia Migraine Missed (08/30/19) Morbid obesity with BMI of 40.0-44.9, adult Surveillance for Depo-Provera contraception Surgical History Surgical History History of section 10/14/16 primary c/s--arrest of dilation Forrest maternal pp hypertension 10/14/20 rpt c/s Cheryl History of dilation and curettage 08/30/19 suction d&c Family History Family History Mother Anxiety Depression Bipolar 1 disorder Hypertension Migraines Father Diabetes mellitus Acute myocardial infarction, Onset Age: 49 Kidney failure Heart disease Social History Social History Smoking status: Current every day smoker Tobacco type: e-cigarettes/vaping Second hand tobacco smoke exposure: Yes Alcohol intake: never Drinks per week: 1 Substance use: never Substance use type: marijuana Living arrangements: other Additional living arrangements comments: Occupation/Education: other 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 There is no relevant family history per
== END 2022-09-08 16:47 | disposition home or self-care (01) ==
PROVIDERS: Emergency Provider Nurse Practitioner Family; PCP Physician Assistant
DX: J02.0 Streptococcal pharyngitis (principal); Z20.822 Contact with and (suspected) exposure to COVID-19; F17.290 Nicotine dependence, other tobacco product, uncomplicated; I10 Essential (primary) hypertension; E78.00 Pure hypercholesterolemia, unspecified; E66.01 Morbid (severe) obesity due to excess calories; Z68.36 Body mass index [BMI] 36.0-36.9, adult; F41.9 Anxiety disorder, unspecified; F32.A Depression, unspecified
CPT/HCPCS: 87426; 87880; 99213; C9803; G0463

== ENCOUNTER 2022-09-20 12:30 | Emergency (ER) | payer OTHER, SELFPAY ==
[2022-09-20 13:12] VITALS: BP 129/76; PULSE 95; RESP 18; TEMP 36.3; O2SAT 98
--- NOTE | 2022-09-20 13:38 | ED.EYEPROB ---
HPI - Eye Problem General Chief complaint: Eye Problems Stated complaint: rt eye irritation Time Seen by Provider: 09/20/22 13:38 Source: patient Mode of arrival: ambulatory Limitations: no limitations History of Present Illness HPI Narrative: 26-year-old female presents with complaint of right eye itching, irritation, redness, thick drainage since yesterday. No vision changes. No light sensitivity. Does not wear contacts. No other Complaints today. all systems reviewed and negative except as noted above. Related Data Home Medications Medication Instructions Recorded Confirmed fluoxetine 20 mg capsule (Prozac) 20 mg PO DAILY 05/24/22 09/20/22 gabapentin 100 mg capsule 100 mg PO TID 06/28/22 09/20/22 Allergies Allergy/AdvReac Type Severity Reaction Status Date / Time amoxicillin AdvReac Severe Swelling Verified 09/20/22 13:39 of Lip/Tongue/Throat adhesive tape AdvReac Mild Rash Verified 09/20/22 13:39 Review of Systems Review of Systems: CONSTITUTIONAL: Denies fever, chills, or sweats. EYES: Denies visual changes . Reports redness, swelling and discharge. ENT: Denies rhinorrhea, congestion, sore throat, or otalgia. CARDIOVASCULAR: Denies chest pain, palpitations, or edema. RESPIRATORY: Denies cough or dyspnea. GASTROINTESTINAL: Denies abdominal pain, nausea, vomiting, or diarrhea. GENITOURINARY: Denies dysuria or hematuria. SKIN: Denies rash or itching. MUSCULOSKELETAL: Denies back pain, joint pain, or myalgia. NEUROLOGIC: Denies headache, numbness, or weakness. PSYCHIATRIC: Denies anxiety or depression. All other systems reviewed are negative, except as documented in HPI. [facility] Past Medical History Medical History Anxiety Depression Eczema Encounter for screening examination for sexually transmitted disease HTN (hypertension) Hypercholesterolemia Migraine Missed (08/30/19) Morbid obesity with BMI of 40.0-44.9, adult Surveillance for Depo-Provera contraception Surgical History Surgical History History of section 10/14/16 primary c/s--arrest of dilation Forrest maternal pp hypertension 10/14/20 rpt c/s Cheryl History of dilation and curettage 08/30/19 suction d&c Family History Family History Mother Anxiety Depression Bipolar 1 disorder Hypertension Migraines Father Diabetes mellitus Acute myocardial infarction, Onset Age: 49 Kidney failure Heart disease Social History Social History Smoking status: Current every day smoker Tobacco type: e-cigarettes/vaping Second hand tobacco smoke exposure: Yes Alcohol intake: never Drinks per week: 1 Substance use: never Substance use type: marijuana Living arrangements: other Additional living arrangements comments: Occupation/Education: other 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 There is no relevant family history pertinent to the presenting complaint. Exam Narrative: GENERAL: This is a well-nourished, well-developed patient, in no apparent distress. HEAD: normocephalic, atraumatic. EYES: PERRL. right conjunctiva and Sclera erythematous, thick white drainage, mild swelling to upper and lower eyelids. No light sensitivity. Vision is grossly intact. EARS: External ears normal NOSE: External nose normal NECK: Neck supple, non-tender without lymphadenopathy, masses or thyromegaly. CARDIOVASCULAR: Regular rate and rhythm without murmurs, gallops, or
== END 2022-09-20 13:50 | disposition home or self-care (01) ==
PROVIDERS: Emergency Provider Nurse Practitioner Family; PCP Physician Assistant
DX: H10.31 Unspecified acute conjunctivitis, right eye (principal); F17.290 Nicotine dependence, other tobacco product, uncomplicated; I10 Essential (primary) hypertension; E78.00 Pure hypercholesterolemia, unspecified; E66.01 Morbid (severe) obesity due to excess calories; Z68.36 Body mass index [BMI] 36.0-36.9, adult; F41.9 Anxiety disorder, unspecified; F32.A Depression, unspecified
CPT/HCPCS: 99213; G0463

== ENCOUNTER 2022-10-21 11:13 | Outpatient (CLI) | payer OTHER, SELFPAY ==
--- NOTE | ~2022-10-21 | US_ITS ---
US breast RT limited DATE: 10/21/2022 11:38 INDICATION: Patient feels a lump of left breast at 4:00. Patient states the doctor felt a lump at 6:0 0. Family history of breast cancer (maternal great-grandmother) TECHNIQUE: Real-time imaging was targeted to area is of concern at 4:00 8 to 9 cm from the nipple and 6:00 8 cm from nipple. COMPARISON: None FINDINGS: No suspicious mass or shadowing, cyst or other significant sonographic abnormality is detec juan. IMPRESSION: BI-RADS Category 1: Negative Reviewed, dictated and finalized at [facility] Reviewed, dictated and finalized at [facility].
== END 2022-10-21 11:14 | disposition home or self-care (01) ==
PROVIDERS: PCP Physician Assistant; Visit Provider Physician Assistant
DX: N63.10 Unspecified lump in the right breast, unspecified quadrant (principal)
CPT/HCPCS: 76642

== ENCOUNTER 2022-11-02 10:50 | Outpatient (CLI) | payer OTHER, SELFPAY ==
[2022-11-02 12:12] LABS: Beta HCG Quantitative < 2.39 mIU/ML
[2022-11-02 12:37] LABS: HIV 1/2 Ab P24 Ag Result Negative (Negative)
[2022-11-02 13:25] LABS: Rapid Plasma Reagin Non-Reactive (NonReactive)
[2022-11-02 14:37] LABS: Hepatitis B Surface Antigen Negative (Negative)
[2022-11-02 14:42] LABS: HAV RESULT Negative (Negative); Hepatitis B Core IgM Result Negative (Negative)
[2022-11-02 14:54] LABS: Hepatitis C Virus Antibody Negative (Negative)
== END 2022-11-02 10:51 | disposition home or self-care (01) ==
LOC: ANHLAB 10:51
PROVIDERS: PCP Physician Assistant; Visit Provider Student in an Organized Health Care Education/Training Program
DX: Z20.2 Contact with and (suspected) exposure to infections with a predominantly sexual mode of transmission (principal)
CPT/HCPCS: 36415; 80074; 84702; 86592; 86695; 86696; 86703; G0432

== ENCOUNTER 2023-01-22 12:08 | Emergency (ER) | payer OTHER, SELFPAY ==
[2023-01-22 12:29] VITALS: BP 112/77; PULSE 98; RESP 20; TEMP 36.3; O2SAT 100
--- NOTE | 2023-01-22 12:43 | ED.URI ---
HPI - URI/Sore Throat General Chief Complaint: Upper Respiratory Infection Stated Complaint: sore throat,concepcion,sneezing Time Seen by Provider: 01/22/23 12:35 Source: patient Mode of arrival: ambulatory Limitations: no limitations History of Present Illness HPI Narrative: Migdalia is a 27-year-old female patient presenting to the clinic today with complaints of sore throat, cough, congestion, and sneezing times 2-3 days. 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 She is also concerned that she may have strep. No known fever or chills. MD elicited complaint: sore throat and nasal congestion Related Data Home Medications Medication Instructions Recorded Confirmed fluoxetine 20 mg capsule (Prozac) 20 mg PO DAILY 05/24/22 01/22/23 gabapentin 100 mg capsule 100 mg PO TID 06/28/22 01/22/23 Allergies Allergy/AdvReac Type Severity Reaction Status Date / Time amoxicillin AdvReac Severe Swelling Verified 01/22/23 12:34 of Lip/Tongue/Throat adhesive tape AdvReac Mild Rash Verified 01/22/23 12:34 Review of Systems Review of Systems: Pertinent positives per HPI. Patient denies any fever, chills, rash, headache, visual changes, dizziness, shortness of breath, chest pain, palpitations, nausea, vomiting, diarrhea, constipation, abdominal pain, or any urinary issues. [facility] Past Medical History Medical History Anxiety Depression Eczema Encounter for screening examination for sexually transmitted disease HTN (hypertension) Hypercholesterolemia Initiation of Depo Provera Migraine Missed (08/30/19) Morbid obesity with BMI of 40.0-44.9, adult Surveillance for Depo-Provera contraception Surgical History Surgical History History of section 10/14/16 primary c/s--arrest of dilation Forrest maternal pp hypertension 10/14/20 rpt c/s Cheryl History of dilation and curettage 08/30/19 suction d&c Family History Family History Mother Anxiety Depression Bipolar 1 disorder Hypertension Migraines Father Diabetes mellitus Acute myocardial infarction, Onset Age: 49 Kidney failure Heart disease Social History Social History Smoking status: Current every day smoker Tobacco type: cigarettes and e-cigarettes/vaping Second hand tobacco smoke exposure: Yes Alcohol intake: current Drinks per week: 2 Alcohol use details: occasional Substance use: former Substance use type: marijuana Lack of Transportation: No Lack of Food: Never True Current Housing: I Do Not Have Housing Concerned About Future Housing: Decline to Answer Difficulty Paying Gas/Electric Bills: No Difficulty Paying for Meds: No Currently Unemployed: No Education: High School Diploma/GED Difficulty w/ Childcare or Family Care: No Living arrangements: other Additional living arrangements comments: Occupation/Education: occupation 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 There is no relevant family history pertinent to the patient complaint. Exam Narrative: General: Well-developed, well nourished, in no apparent distress Head: Normocephalic, atraumatic Eyes: Pupils equally round and reactive to light bilaterally, EOM intact, sclera and conjunctive clear, no discharge, lids normal Ears: TMs intact and congested, ear canals clear, no drainage, grossly hearing normal. Nose: Nares patent, clear nasal dis
== END 2023-01-22 12:53 | disposition home or self-care (01) ==
PROVIDERS: Emergency Provider Nurse Practitioner Family; PCP Physician Assistant
DX: J02.0 Streptococcal pharyngitis (principal); Z20.822 Contact with and (suspected) exposure to COVID-19; F17.290 Nicotine dependence, other tobacco product, uncomplicated; I10 Essential (primary) hypertension; E78.00 Pure hypercholesterolemia, unspecified; E66.01 Morbid (severe) obesity due to excess calories; Z68.35 Body mass index [BMI] 35.0-35.9, adult; F41.9 Anxiety disorder, unspecified; F32.A Depression, unspecified
CPT/HCPCS: 87426; 87880; 99213; C9803; G0463

== ENCOUNTER 2023-03-22 08:41 | Emergency (ER) | payer OTHER, SELFPAY ==
[2023-03-22 08:49] VITALS: BP 127/81; PULSE 99; RESP 16; TEMP 36.3; O2SAT 100
--- NOTE | 2023-03-22 08:50 | ED.URI ---
HPI - URI/Sore Throat General Chief Complaint: Upper Respiratory Infection Stated Complaint: Congestion,Headache,Sore Throat Time Seen by Provider: 03/22/23 08:51 Source: patient and RN notes reviewed Mode of arrival: ambulatory Limitations: no limitations History of Present Illness HPI Narrative: 27-year-old female presenting for complaint of sinus congestion and drainage, sore throat and headache. Onset 2 days. States throat pain is mild. Reports last night abdominal pain and nausea which has resolved. States she had strep throat 2 months ago, and is scheduled in 2 weeks for tonsillectomy. She states she has been feeling well but ?tonsil swelling has not gone down. ? Taking NyQuil. Denies shortness of breath, wheezing, vomiting, fevers or lethargy. MD elicited complaint: cough Related Data Home Medications Medication Instructions Recorded Confirmed fluoxetine 20 mg capsule (Prozac) 20 mg PO DAILY 05/24/22 02/10/23 gabapentin 100 mg capsule 100 mg PO TID 06/28/22 02/10/23 atomoxetine 40 mg capsule mg PO 03/22/23 (Strattera) Allergies Allergy/AdvReac Type Severity Reaction Status Date / Time amoxicillin AdvReac Severe Swelling Verified 02/10/23 09:19 of Lip/Tongue/Throat adhesive tape AdvReac Mild Rash Verified 02/10/23 09:19 Review of Systems Review of Systems: CONSTITUTIONAL: Endorses malaise, denies chills, sweats, fever EYES: Denies visual changes, redness, or discharge ENT: Reports rhinorrhea, congestion, sneezing, sinus pain, sore throat CARDIOVASCULAR: Denies chest pain, palpitations, edema RESPIRATORY: Reports cough, post nasal drainage. Denies dyspnea GASTROINTESTINAL: Denies abdominal pain, nausea, vomiting, diarrhea SKIN: Denies rash or itching MUSCULOSKELETAL: Denies myalgia NEUROLOGIC: Reports headache PMFSH Past Medical History Medical History Anxiety Depression Eczema Encounter for screening examination for sexually transmitted disease HTN (hypertension) Hypercholesterolemia Initiation of Depo Provera Migraine Missed (08/30/19) Morbid obesity with BMI of 40.0-44.9, adult Surveillance for Depo-Provera contraception Surgical History Surgical History History of section 10/14/16 primary c/s--arrest of dilation Forrest maternal pp hypertension 10/14/20 rpt c/s Cheryl History of dilation and curettage 08/30/19 suction d&c Family History Family History Mother Anxiety Depression Bipolar 1 disorder Hypertension Migraines Father Diabetes mellitus Acute myocardial infarction, Onset Age: 49 Kidney failure Heart disease Social History Social History Smoking status: Current every day smoker Tobacco type: cigarettes and e-cigarettes/vaping Second hand tobacco smoke exposure: Yes Alcohol intake: current Drinks per week: 2 Alcohol use details: occasional Substance use: former Substance use type: marijuana Lack of Transportation: No Lack of Food: Never True Current Housing: I Do Not Have Housing Concerned About Future Housing: Decline to Answer Difficulty Paying Gas/Electric Bills: No Difficulty Paying for Meds: No Currently Unemployed: No Education: High School Diploma/GED Difficulty w/ Childcare or Family Care: No Living arrangements: other Additional living arrangements comments: Occupation/Education: occupation 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 HEAD: Normocephalic EYES: PERRLA, conjunctivae clear
== END 2023-03-22 09:54 | disposition home or self-care (01) ==
PROVIDERS: Emergency Provider Nurse Practitioner Family; PCP Physician Assistant
DX: J06.9 Acute upper respiratory infection, unspecified (principal); Z20.822 Contact with and (suspected) exposure to COVID-19; I10 Essential (primary) hypertension; E78.00 Pure hypercholesterolemia, unspecified; E66.01 Morbid (severe) obesity due to excess calories; Z68.34 Body mass index [BMI] 34.0-34.9, adult; F41.9 Anxiety disorder, unspecified; F32.A Depression, unspecified; F17.210 Nicotine dependence, cigarettes, uncomplicated; F17.290 Nicotine dependence, other tobacco product, uncomplicated
CPT/HCPCS: 87081; 87426; 87880; 99213; C9803; G0463

== ENCOUNTER 2023-04-05 01:18 | Day surgery (SDC) | payer OTHER, SELFPAY ==
[2023-03-25 10:11] VITALS: BMI 35.2
--- NOTE | 2023-03-25 10:17 | PC.NURSE ---
Report to the Outpatient Waiting Room, entrance under the green pavilion located off [facility], at time 1030 on date 04/05/23. Planned Procedure Time: 1230. Time changes happen often and if your time is changed the preop area will call you the afternoon before. - You and your visitor will be asked to self-screen and do not enter if you have any COVID symptoms. - A mask is optional within the hospital at this time. Patients may have clear liquids (water, carbonated beverages, clear teas, apple juice) until 3 hours prior to surgery with a maximum of 20 ounces. - No food from midnight until time of surgery Take the following medications with a SIP of water the morning of surgery: GABAPENTIN, PROPRANOLOL DO NOT STOP ANY OF YOUR OTHER PRESCRIPTION MEDICATIONS PRIOR TO SURGERY ?EXCEPT THE FOLLOWING Medications to discontinue per physician: N/A Date to take last dose: N/A Please no make-up, nail pitcairn islander, hairspray, perfume, deodorant, or body powder the day of surgery. No jewelry (including any body piercings) or valuables the day of surgery, leave them at home. Please take a shower or bath the night before, or the morning of, surgery with an antibacterial soap. Wear comfortable, loose fitting clothing. - Jewelry must be removed prior to entering the operating room. Rings and piercings that are not removed may be cut off. - The hospital will not accept responsibility for valuables. - Please leave all valuables, including medications, at home the day of surgery. If you are going home after surgery, a licensed powder truck driver must drive you home. - NO public transportation without another adult if you receive anesthesia. - We recommend that an adult stay with you for 24 hours following discharge. - We also recommend that you do not drive, make important decision, drink alcoholic beverages, or take any drugs that were not prescribed by your health care provider for at least 24 hours after your discharge time. Follow any additional instructions given to you from your surgeon. If you or anyone in your household have experienced Covid symptoms in the past week, please notify your surgeon or the nurse liaison at the phone number below for possible testing. Telephone instructions given to PT - DON ELKINS and asked if any additional questions and then verbalized understanding. Patient advised to call surgeon office or pre surgery nurse liaison [phone] if any additional questions.
--- NOTE | 2023-04-03 15:38 | PM.IMHP ---
H&P: HPI History of Present Illness Date/Time: 04/03/23 15:38 Chief Complaint: recurrent tonsillitis sleep apnea sleep disordered breathing tonsillar hypertrophy Narrative: planned procedure Review of Systems Review of Systems: All systems reviewed & are unremarkable except as noted in HPI and below PMFSH Past Medical History Medical History Anxiety Depression Eczema Encounter for screening examination for sexually transmitted disease HTN (hypertension) Hypercholesterolemia Initiation of Depo Provera Migraine Missed (08/30/19) Morbid obesity with BMI of 40.0-44.9, adult Surveillance for Depo-Provera contraception Surgical History Surgical History History of section 10/14/16 primary c/s--arrest of dilation Forrest maternal pp hypertension 10/14/20 rpt c/s Cheryl History of dilation and curettage 08/30/19 suction d&c Family History Family History Mother Anxiety Depression Bipolar 1 disorder Hypertension Migraines Father Diabetes mellitus Acute myocardial infarction, Onset Age: 49 Kidney failure Heart disease Social History Social History Smoking status: Current every day smoker Tobacco type: cigarettes and e-cigarettes/vaping Second hand tobacco smoke exposure: Yes Additional smoking assessment comments: RARE CIGARETTE SMOKING, MOSTLY VAPING Alcohol intake: current Drinks per week: 2 Alcohol use details: occasional Substance use: never Substance use type: does not use Lack of Transportation: No Lack of Food: Never True Current Housing: I Do Not Have Housing Concerned About Future Housing: Decline to Answer Difficulty Paying Gas/Electric Bills: No Difficulty Paying for Meds: No Currently Unemployed: No Education: High School Diploma/GED Difficulty w/ Childcare or Family Care: No Living arrangements: with family Additional living arrangements comments: Occupation/Education: occupation 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 Gender identity (if verbalized by the patient): Female Sexual Orientation (if Verbalized by the Patient): Bisexual Spiritual care concerns: No Meds Home Medications and Allergies Home Medications Medication Instructions Recorded Confirmed Type gabapentin 100 mg capsule 100 mg PO TID 06/28/22 03/25/23 History medroxyprogesterone 150 mg/mL 150 mg IM [id number] #1 mL 01/24/23 03/25/23 Rx intramuscular syringe (Depo-Provera) atomoxetine 40 mg capsule 60 mg PO DAILY 03/22/23 03/25/23 History (Strattera) propranolol 10 mg tablet 10 mg PO DAILY 03/25/23 03/25/23 History Allergies Allergy/AdvReac Type Severity Reaction Status Date / Time amoxicillin AdvReac Severe Swelling Verified 03/25/23 10:08 of Lip/Tongue/Throat adhesive tape AdvReac Mild Rash Verified 03/25/23 10:08 Exam Narrative: large tonsils Assessment and Plan Assessment and plan (1) Snoring: Code(s): R06.83 - Snoring Status: Acute Assessment and Plan: ?plan or tonsillectomy risks were discussed including postoperative pain bleeding infection bleeding of tooth 5%.? Need for further procedures.? Damage to any structure of the clavicle by myself change in swallow change in taste which could be permanent damage to any structure in the injection and remains of anesthesia including vocal cord paralysis.? Time off work time off school inherent risk of narcotic use.? Patient voiced understanding these risks and agreed. (2) Tonsillar hypertrophy: Code(s): J35.1 - Hypertrophy of tonsils Status: Acute (3) Recurrent tonsillitis: Code(s): J03.91 - Acute recurrent tonsillitis, unspecified Status: Acut
--- NOTE | 2023-04-04 14:35 | WPDANESEPPF ---
Anes - Initial Pre Proc Eval Procedure: Operation Date: 04/05/23 12:30 Proposed Procedures p Tonsillectomy - Jerry Jiang MD Date/Time: 04/04/23 14:35 Surgeon: Jerry Jiang MD Pre Op Diagnosis: Recur Tonsillitis, Sleep Apnea,Tonsilar Hypertroph Patient Data Age: 27 Gender: F Height: 1.52 m Weight: 81.65 kg Allergies Allergy/AdvReac Type Severity Reaction Status Date / Time amoxicillin AdvReac Severe Swelling Verified 04/05/23 10:44 of Lip/Tongue/Throat adhesive tape AdvReac Mild Rash Verified 04/05/23 10:44 Home Medications Medication Instructions Recorded Confirmed Type gabapentin 100 mg capsule 100 mg PO TID 06/28/22 03/25/23 History medroxyprogesterone 150 mg/mL 150 mg IM [id number] #1 mL 01/24/23 03/25/23 Rx intramuscular syringe (Depo-Provera) atomoxetine 40 mg capsule 60 mg PO DAILY 03/22/23 03/25/23 History (Strattera) propranolol 10 mg tablet 10 mg PO DAILY 03/25/23 03/25/23 History Patient hx anesthesia problems: none Family hx anesthesia problems: none Results Review: All pre-operative results and documents have been reviewed as part of the pre-operative evaluation. [facility] Past Medical History Medical History (Updated 04/04/23 @ 14:36 by Jean Carlos Eldridge DO) Anxiety Depression Eczema Encounter for screening examination for sexually transmitted disease HTN (hypertension) Hypercholesterolemia Initiation of Depo Provera Migraine Missed (08/30/19) Morbid obesity with BMI of 40.0-44.9, adult KWADWO (obstructive sleep apnea) Surveillance for Depo-Provera contraception Surgical History Surgical History History of section 10/14/16 primary c/s--arrest of dilation Forrest maternal pp hypertension 10/14/20 rpt c/s Cheryl History of dilation and curettage 08/30/19 suction d&c Family History Family History Mother Anxiety Depression Bipolar 1 disorder Hypertension Migraines Father Diabetes mellitus Acute myocardial infarction, Onset Age: 49 Kidney failure Heart disease Social History Social History Smoking status: Current every day smoker Tobacco type: cigarettes and e-cigarettes/vaping Second hand tobacco smoke exposure: Yes Additional smoking assessment comments: RARE CIGARETTE SMOKING, MOSTLY VAPING Alcohol intake: current Drinks per week: 2 Alcohol use details: occasional Substance use: never Substance use type: does not use Lack of Transportation: No Lack of Food: Never True Current Housing: I Do Not Have Housing Concerned About Future Housing: Decline to Answer Difficulty Paying Gas/Electric Bills: No Difficulty Paying for Meds: No Currently Unemployed: No Education: High School Diploma/GED Difficulty w/ Childcare or Family Care: No Living arrangements: with family Additional living arrangements comments: Occupation/Education: occupation 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 Gender identity (if verbalized by the patient): Female Sexual Orientation (if Verbalized by the Patient): Bisexual Spiritual care concerns: No Anes - Eval Final PreProcedure Day of Procedure 04/04/23 14:35 Patient weight: obese Heart: regular rate and rhythm Lungs: clear to auscultation Airway: Mallampati scale class II Neurological: alert and oriented Last oral intake: >/= 8 hours ASA classification: III Emergent: no Anesthetic plan: proceed Anesthesia type and monitoring: general ETT and standard monitoring Results Review: All pre-operative results and documents have been reviewed as part of the pre-operative evaluation. Informed Consent: The patient's anesthetic plan and its attendant risks and benefits were discussed with the patient/family/POA. Questions were claude
[2023-04-05] VITALS (9 sets, daily range): BP systolic 96–126; BP diastolic 53–87; PULSE 69–89; RESP 10–18; TEMP 36.6–36.9; O2SAT 99–100
--- NOTE | 2023-04-05 07:18 | WPDHPUPDATE1 ---
History and Physical Update Update Date/Time: 04/05/23 07:18 History and Physical has been reviewed, including an updated exam of the patient. There are NO changes in the patient's condition. Risks, benefits, and alternatives have been discussed and questions answered. Patient agrees to proceed with procedure.
[2023-04-05] MEDS: ACETAMINOPHEN 500 MG TABLET 1000 MG PO (10:48)
[2023-04-05] MEDS: LACTATED RINGERS 1,000 ML 30 ML IV CONT ×2 (11:19→13:21)
[2023-04-05] MEDS: SCOPOLAMINE 1.5 MG PATCH TRANSDERM (12:03)
[2023-04-05] MEDS: fentaNYL CITRATE INJ (*CRX) 100 MCG/2 ML VIAL 25 MCG IV PUSH ×4 (13:38→13:55)
--- NOTE | 2023-04-05 13:40 | W.PM.PROC2 ---
Procedure Note - Detailed Date of Procedure 04/05/23 Pre-op Diagnosis Recur Tonsillitis, Sleep Apnea,Tonsilar Hypertroph Post-op Diagnosis Same Procedure Performed Tonsillectomy Surgeon Jerry Jiang MD Anesthesia General Indications see above Findings 4+ tonsils quite literally the large tonsils I have ever seen Description of Procedure patient identified consent verified preop. Patient brought to the operating room. Time-out performed. General anesthesia induced endotracheal tube secure the airway. Patient prepped draped position time-out performed. Prep I should say 2nd time-out performed. Tonsils removed in the extracapsular plane bilaterally following insertion McIvor mouth gag. In-between tonsils McIvor mouth gag was lowered and reopened to allow blood flow to return to the tongue. Excess bleeding total blood loss about 5 cc. Very large tonsils 4+ further removed with Bovie electrocautery at a setting of 8. Any bleeders controlled with Bovie suction electrocautery at a setting of 10 in bipolar electrocautery setting of 8. After the McIvor mouth gag the after the tonsils are out the McIvor mouth gag was lowered for 30 seconds reopened bleeding. I performed all dictated portions of procedure. Again blood loss 5 cc. No complications. Patient taken to PACU. Estimated Blood Loss 5 Drains No Packing No Pathology Yes Complications No immediate complications Condition Stable Disposition PACU [facility] Billing Surgery - Charge Forward: Surgery Billing
[2023-04-05] MEDS: oxyCODONE HCL (*CRX) 5 MG TAB IR PO (14:25)
== END 2023-04-05 15:42 | disposition home or self-care (01) ==
PROVIDERS: PCP Physician Assistant; Visit Provider Otolaryngology
PROC: (CPT 42826; principal; 2023-04-05 12:30)
DX: D10.4 Benign neoplasm of tonsil (principal); I10 Essential (primary) hypertension; F41.9 Anxiety disorder, unspecified; F32.A Depression, unspecified; E78.00 Pure hypercholesterolemia, unspecified; G47.30 Sleep apnea, unspecified; F17.290 Nicotine dependence, other tobacco product, uncomplicated; E66.9 Obesity, unspecified; Z68.35 Body mass index [BMI] 35.0-35.9, adult; Z82.49 Family history of ischemic heart disease and other diseases of the circulatory system
CPT/HCPCS: 42826; 88302; A9270; J0330; J1100; J2250; J2405; J2704; J3010; J7120

== ENCOUNTER 2023-05-16 12:21 | Emergency (ER) | payer OTHER, SELFPAY ==
[2023-05-16 12:25] VITALS: BP 132/73; PULSE 93; RESP 16; TEMP 36.4; O2SAT 98
--- NOTE | 2023-05-16 12:26 | ED.URI ---
HPI - URI/Sore Throat General Chief Complaint: Upper Respiratory Infection Stated Complaint: Congestion, Sore Throat, Cough Time Seen by Provider: 05/16/23 12:26 Source: patient Mode of arrival: ambulatory Limitations: no limitations History of Present Illness HPI Narrative: Migdalia is a 27-year-old female patient presenting to the clinic today a with complaints of congestion, sore throat and cough. She reports cough and congestion started 1-2 days ago however she has had a scratchy throat for almost 1 week. Denies any known fever or chills. Reports that her children had influenza and strep 2 weeks ago. Recently had a tonsillectomy on April 05 2023 MD elicited complaint: sore throat and nasal congestion Related Data Home Medications Medication Instructions Recorded Confirmed gabapentin 100 mg capsule 100 mg PO TID 06/28/22 05/16/23 atomoxetine 40 mg capsule 60 mg PO DAILY 03/22/23 05/16/23 (Strattera) propranolol 10 mg tablet 10 mg PO PRN PRN Anxiety 03/25/23 05/16/23 Allergies Allergy/AdvReac Type Severity Reaction Status Date / Time amoxicillin AdvReac Severe Swelling Verified 05/16/23 12:23 of Lip/Tongue/Throat adhesive tape AdvReac Mild Rash Verified 05/16/23 12:23 Review of Systems Review of Systems: Pertinent positives per HPI. Patient denies any fever, chills, rash, headache, visual changes, dizziness, shortness of breath, chest pain, palpitations, nausea, vomiting, diarrhea, constipation, abdominal pain, or any urinary issues. PMF Past Medical History Medical History (Updated 05/16/23 @ 12:53 by Sarwat Arenas APRN) Anxiety Depression Eczema Encounter for screening examination for sexually transmitted disease HTN (hypertension) Hypercholesterolemia Initiation of Depo Provera Migraine Missed (08/30/19) Morbid obesity with BMI of 40.0-44.9, adult KWADWO (obstructive sleep apnea) Surveillance for Depo-Provera contraception Surgical History Surgical History (Updated 05/11/23 @ 08:37 by Basia Zarate Arelis) History of section 10/14/16 primary c/s--arrest of dilation Forrest maternal pp hypertension 10/14/20 rpt c/s Cheryl History of dilation and curettage 08/30/19 suction d&c History of tonsillectomy (04/05/23) Family History Family History Mother Anxiety Depression Bipolar 1 disorder Hypertension Migraines Father Diabetes mellitus Acute myocardial infarction, Onset Age: 49 Kidney failure Heart disease Social History Social History (Updated 05/11/23 @ 08:38 by MICHAEL Ortiz) Smoking status: Current every day smoker Tobacco type: cigarettes and e-cigarettes/vaping Second hand tobacco smoke exposure: Yes Additional smoking assessment comments: RARE CIGARETTE SMOKING, MOSTLY VAPING Alcohol intake: current Drinks per week: 6 Alcohol use details: occasional Substance use: current Substance use type: does not use Other substance usage details: 5-7 times a year Do You Feel Safe in your Home?: Yes Lack of Transportation: No Lack of Food: Never True Current Housing: I Do Not Have Housing Concerned About Future Housing: Decline to Answer Difficulty Paying Gas/Electric Bills: No Difficulty Paying for Meds: No Currently Unemployed: No Education: High School Diploma/GED Difficulty w/ Childcare or Family Care: No Living arrangements: with family Additional living arrangements comments: Occupation/Education: occupation 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 There is no relevant family history pertinent to
== END 2023-05-16 13:02 | disposition home or self-care (01) ==
PROVIDERS: Emergency Provider Nurse Practitioner Family; PCP Physician Assistant
DX: U07.1 COVID-19 (principal); F17.290 Nicotine dependence, other tobacco product, uncomplicated; I10 Essential (primary) hypertension; E78.00 Pure hypercholesterolemia, unspecified; E66.01 Morbid (severe) obesity due to excess calories; Z68.35 Body mass index [BMI] 35.0-35.9, adult
CPT/HCPCS: 87081; 87426; 87804; 87880; 99213; C9803; G0463

== ENCOUNTER 2023-06-23 14:33 | Emergency (ER) | payer OTHER, SELFPAY ==
[2023-06-23 14:54] VITALS: BP 132/80; PULSE 89; RESP 16; TEMP 36.6; O2SAT 100
--- NOTE | 2023-06-23 15:06 | ED.URI ---
HPI - URI/Sore Throat General Chief Complaint: Upper Respiratory Infection Stated Complaint: diarrhea,nausea,sorethroat Time Seen by Provider: 06/23/23 15:06 Source: patient, RN notes reviewed and old records reviewed Mode of arrival: ambulatory Limitations: no limitations History of Present Illness HPI Narrative: 27 year old female presents to [facility] care with complaints of nausea with diarrhea, sore throat with uvula swollen since this morning. Patient reports no known fevers or chills reports body aches. 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 MD elicited complaint: sore throat and other (nausea diarrhea and body aches) Onset (ago): day(s) (1) Pain scale (0-10): 2 Able to tolerate fluids by mouth: Yes Related Data Home Medications Medication Instructions Recorded Confirmed gabapentin 100 mg capsule 100 mg PO TID 06/28/22 05/16/23 atomoxetine 40 mg capsule 60 mg PO DAILY 03/22/23 05/16/23 (Strattera) propranolol 10 mg tablet 10 mg PO PRN PRN Anxiety 03/25/23 05/16/23 Allergies Allergy/AdvReac Type Severity Reaction Status Date / Time amoxicillin AdvReac Severe Swelling Verified 05/16/23 12:23 of Lip/Tongue/Throat adhesive tape AdvReac Mild Rash Verified 05/16/23 12:23 Review of Systems Review of Systems: CONSTITUTIONAL: Reports malaise,no chills, sweats, or fever. EYES: Denies visual changes, redness, or discharge. ENT: Reports rhinorrhea, congestion,no sinus pain, no otalgia and positive for sore throat. CARDIOVASCULAR: Denies chest pain, palpitations, or edema. RESPIRATORY: Reports no cough.? Denies dyspnea. GASTROINTESTINAL: Denies abdominal pain,reports nausea, no vomiting, positive diarrhea SKIN: Denies rash or itching. MUSCULOSKELETAL:Reports myalgia. NEUROLOGIC: Denies headache. All systems reviewed & are unremarkable except as noted in HPI and below PMFSH Past Medical History Medical History Anxiety Depression Eczema Encounter for screening examination for sexually transmitted disease HTN (hypertension) Hypercholesterolemia Initiation of Depo Provera Migraine Missed (08/30/19) Morbid obesity with BMI of 40.0-44.9, adult KWADWO (obstructive sleep apnea) Surveillance for Depo-Provera contraception Surgical History Surgical History History of section 10/14/16 primary c/s--arrest of dilation Forrest maternal pp hypertension 10/14/20 rpt c/s Cheryl History of dilation and curettage 08/30/19 suction d&c History of tonsillectomy (04/05/23) Family History Family History Mother Anxiety Depression Bipolar 1 disorder Hypertension Migraines Father Diabetes mellitus Acute myocardial infarction, Onset Age: 49 Kidney failure Heart disease Social History Social History Smoking status: Current every day smoker Tobacco type: cigarettes and e-cigarettes/vaping Second hand tobacco smoke exposure: Yes Additional smoking assessment comments: RARE CIGARETTE SMOKING, MOSTLY VAPING Alcohol intake: current Drinks per week: 6 Alcohol use details: occasional Substance use: current Substance use type: does not use Other substance usage details: 5-7 times a year Do You Feel Safe in your Home?: Yes Lack of Transportation: No Lack of Food: Never True Current Housing: I Do Not Have Housing Concerned About Future Housing: Decline to Answer Difficulty Paying Gas/Electric Bills: No Difficulty Paying for Meds: No Currently Unemployed: No Education: High School Diploma/GED Difficulty w/ Childcare or Family Care: No Living arrangements: with family Additional living arrangements comments: Occupation/Education: occupation Additional occupation/education comment
== END 2023-06-23 15:37 | disposition home or self-care (01) ==
PROVIDERS: Emergency Provider Registered Nurse; PCP Physician Assistant
DX: J10.1 Influenza due to other identified influenza virus with other respiratory manifestations (principal); Z20.822 Contact with and (suspected) exposure to COVID-19; I10 Essential (primary) hypertension; E78.00 Pure hypercholesterolemia, unspecified; E66.01 Morbid (severe) obesity due to excess calories; Z68.34 Body mass index [BMI] 34.0-34.9, adult; F17.290 Nicotine dependence, other tobacco product, uncomplicated
CPT/HCPCS: 87081; 87426; 87804; 87880; 99213; G0463

== ENCOUNTER 2023-07-05 12:31 | Emergency (ER) | payer OTHER, SELFPAY ==
--- NOTE | ~2023-07-05 | XR_ITS ---
EXAMINATION: XR chest 2V DATE: 07/05/2023 13:26 INDICATION: Cough and congestion TECHNIQUE: PA and lateral views of the chest are obtained. COMPARISON: 04/28/2022 FINDINGS: The lungs are free of acute opacities. No pleural effusion or pneumothorax. The cardiomedia stinal silhouette is normal. The visualized bones and soft tissues are unremarkable. IMPRESSION: 1. No acute cardiopulmonary abnormality. Reviewed, dictated and finalized at location [facility]. [facility]
[2023-07-05 12:50] VITALS: BP 126/82; PULSE 75; RESP 16; TEMP 36.7; O2SAT 100
--- NOTE | 2023-07-05 13:16 | ED.GENADULT ---
HPI - General Adult General Chief complaint: Upper Respiratory Infection Stated complaint: chest pain Source: patient, RN notes reviewed and old records reviewed Mode of arrival: ambulatory Limitations: no limitations History of Present Illness HPI narrative: 27-year-old female presents to [facility] with complaints of, coughing up blood 3 times today and upper chest/ epigastric pain this started last p.m.. Patient states had influenza last week but but states all symptoms have resolved including cough when asked patient how she coughed up blood patient states was clearing mucus out of the throat and cough that up that was bloody. Patient also denies sinus congestion states nose is slightly runny. Related Data Home Medications Medication Instructions Recorded Confirmed atomoxetine 40 mg capsule 60 mg PO DAILY 03/22/23 07/05/23 (Strattera) propranolol 10 mg tablet 10 mg PO PRN PRN Anxiety 03/25/23 07/05/23 trazodone 100 mg tablet 100 mg PO QHS 06/29/23 07/05/23 Allergies Allergy/AdvReac Type Severity Reaction Status Date / Time amoxicillin AdvReac Severe Swelling Verified 07/05/23 12:58 of Lip/Tongue/Throat adhesive tape AdvReac Mild Rash Verified 07/05/23 12:58 Review of Systems Constitutional: Constitutional: Reports no additional constitutional complaints, Denies body ache(s), Denies chills, Denies fatigue, Denies fever(s) and Denies headache(s) Eyes: Eyes: Reports no additional eye complaints and Denies blurry vision ENT: Reports system reviewed and no additional complaints, except as documented, Denies vertigo, Denies dizziness, Denies ear discharge, Denies otalgia, Denies facial pain, Denies headache(s), Denies nasal congestion, Reports nasal discharge, Denies sinus pain, Denies sinus pressure and Denies sore throat Cardiovascular: Cardiovascular: Reports no additional cardiovascular complaints, Denies chest pain, Denies chest pain at rest, Denies rapid heart rate and Denies dyspnea Respiratory: Respiratory: Reports no additional respiratory complaints, Denies chest congestion, Denies cough, Denies pain on inspiration, Denies pain with cough, Denies dyspnea and Reports other ( Hemoptysis) Gastrointestinal: Gastrointestinal: Denies abdominal pain, Denies diarrhea, Denies nausea and Denies vomiting Integumentary/Breasts: Skin/Breast: Denies rash Neurologic: Reports system reviewed and no additional complaints, except as documented, Denies vertigo, Denies dizziness and Denies headache(s) Endocrine: Endocrine: Denies fatigue PMFSH Past Medical History Medical History Anxiety Chronic left-sided low back pain with left-sided sciatica Depression Eczema Encounter for screening examination for sexually transmitted disease Encounter for screening examination for sexually transmitted disease Fatigue HSV-1 infection HTN (hypertension) Hypercholesterolemia Initiation of Depo Provera Migraine Missed (08/30/19) Morbid obesity with BMI of 40.0-44.9, adult KWADWO (obstructive sleep apnea) Surveillance for Depo-Provera contraception Surgical History Surgical History History of section 10/14/16 primary c/s--arrest of dilation Forrest maternal pp hypertension 10/14/20 rpt c/s Cheryl History of dilation and curettage 08/30/19 suction d&c History of tonsillectomy (04/05/23) Family History Family History Mother Anxiety Depression Bipolar 1 disorder Hypertension Migraines Father Diabetes mellitus Acute myocardial infarction, Onset Age: 49 Kidney failure Heart disease Social History Social History Smoking status: Current every day smoker Tobacco type: cigarettes and e-cigarettes/vaping Second hand tobacco smoke exposure
== END 2023-07-05 13:52 | disposition home or self-care (01) ==
PROVIDERS: Emergency Provider Registered Nurse; PCP Physician Assistant
DX: R04.2 Hemoptysis (principal); F17.290 Nicotine dependence, other tobacco product, uncomplicated; I10 Essential (primary) hypertension; F32.A Depression, unspecified; E78.00 Pure hypercholesterolemia, unspecified; E66.01 Morbid (severe) obesity due to excess calories; Z68.35 Body mass index [BMI] 35.0-35.9, adult
CPT/HCPCS: 71046; 99213; G0463

== ENCOUNTER 2023-10-05 07:41 | Outpatient (CLI) | payer OTHER, SELFPAY ==
[2023-10-05 08:49] LABS: Beta HCG Quantitative < 2.39 mIU/ML
== END 2023-10-05 07:42 | disposition home or self-care (01) ==
LOC: ANHLAB 07:45
PROVIDERS: PCP Physician Assistant; Visit Provider Obstetrics & Gynecology
DX: Z30.42 Encounter for surveillance of injectable contraceptive (principal)
CPT/HCPCS: 36415; 84702

== ENCOUNTER 2023-11-13 18:44 | Emergency (ER) | payer OTHER, SELFPAY ==
[2023-11-13 19:02] VITALS: BP 129/87; PULSE 122; RESP 16; TEMP 36.4; O2SAT 100
--- NOTE | 2023-11-13 20:11 | ED.HA ---
HPI - Headache General Chief Complaint: Headache Stated Complaint: headaches Time Seen by Provider: 11/13/23 19:58 Source: patient Mode of arrival: ambulatory Limitations: no limitations History of Present Illness HPI Narrative: this is a 28-year-old female With PMH of HTN, migraines who presents to the ED with chief complaint of flu-like symptoms for the past week. Reports that she started off with general fatigue, malaise and headaches. She reports the headaches have transition from intermittent to more of a constant migraine. She also reports subjective fevers as well as chills at home. Endorses nausea with 1 episode of vomiting this week. Denies diarrhea. She states that she feels dehydrated. 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 Denies cough, sore throat, ear pain, abdominal pain, chest pain, shortness of breath. Related Data Home Medications Medication Instructions Recorded Confirmed atomoxetine 40 mg capsule 60 mg PO DAILY 03/22/23 07/05/23 (Strattera) propranolol 10 mg tablet 10 mg PO PRN PRN Anxiety 03/25/23 07/05/23 trazodone 100 mg tablet 100 mg PO QHS 06/29/23 07/05/23 Allergies Allergy/AdvReac Type Severity Reaction Status Date / Time amoxicillin AdvReac Severe Swelling Verified 07/05/23 12:58 of Lip/Tongue/Throat adhesive tape AdvReac Mild Rash Verified 07/05/23 12:58 Review of Systems Review of Systems: All systems as dictated in HPI PMFSH Past Medical History Medical History Anxiety Chronic left-sided low back pain with left-sided sciatica Depression Eczema Encounter for screening examination for sexually transmitted disease Encounter for screening examination for sexually transmitted disease Fatigue HSV-1 infection HTN (hypertension) Hypercholesterolemia Initiation of Depo Provera Migraine Missed (08/30/19) Morbid obesity with BMI of 40.0-44.9, adult KWADWO (obstructive sleep apnea) Surveillance for Depo-Provera contraception Surgical History Surgical History History of section 10/14/16 primary c/s--arrest of dilation Forrest maternal pp hypertension 10/14/20 rpt c/s Cheryl History of dilation and curettage 08/30/19 suction d&c History of tonsillectomy (04/05/23) Family History Family History Mother Anxiety Depression Bipolar 1 disorder Hypertension Migraines Father Diabetes mellitus Acute myocardial infarction, Onset Age: 49 Kidney failure Heart disease Social History Social History Smoking status: Current every day smoker Tobacco type: cigarettes and e-cigarettes/vaping Second hand tobacco smoke exposure: Yes Additional smoking assessment comments: RARE CIGARETTE SMOKING, MOSTLY VAPING Alcohol intake: current Drinks per week: 6 Alcohol use details: occasional Substance use: current Substance use type: does not use Other substance usage details: 5-7 times a year Do You Feel Safe in your Home?: Yes Lack of Transportation: No Lack of Food: Never True Current Housing: I Do Not Have Housing Concerned About Future Housing: Decline to Answer Difficulty Paying Gas/Electric Bills: No Difficulty Paying for Meds: No Currently Unemployed: No Education: High School Diploma/GED Difficulty w/ Childcare or Family Care: No Living arrangements: with family Additional living arrangements comments: Occupation/Education: occupation 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
[2023-11-13] MEDS: KETOROLAC 15 MG/ML VIAL (*BKC) IV PUSH (20:20)
[2023-11-13] MEDS: diphenhydrAMINE HCl INJ 50 MG/ML VIAL 25 MG IV PUSH (20:21)
[2023-11-13] MEDS: PROCHLORPERAZINE EDISYLATE 10 MG/2 ML VIAL IV PUSH (20:22)
[2023-11-13] MEDS: SODIUM CHLORIDE 0.9% IV 1,000 ML 999 ML IV CONT (20:22)
[2023-11-13 21:01] LABS: Influenza A QL RT-PCR Negative (Negative); Influenza B QL RT-PCR Negative (Negative); RSV RNA, RT-PCR Negative (Negative); SARS-CoV-2 RNA PCR Negative (Negative)
[2023-11-13 21:40] VITALS: BP 110/62; PULSE 90; RESP 16; TEMP 36.8; O2SAT 97
== END 2023-11-13 21:40 | disposition home or self-care (01) ==
PROVIDERS: Emergency Provider Physician Assistant; PCP Physician Assistant
DX: G43.909 Migraine, unspecified, not intractable, without status migrainosus (principal); Z20.822 Contact with and (suspected) exposure to COVID-19; I10 Essential (primary) hypertension; E78.00 Pure hypercholesterolemia, unspecified; E66.01 Morbid (severe) obesity due to excess calories; Z68.35 Body mass index [BMI] 35.0-35.9, adult; G47.33 Obstructive sleep apnea (adult) (pediatric); F32.A Depression, unspecified; F41.9 Anxiety disorder, unspecified; F17.210 Nicotine dependence, cigarettes, uncomplicated; F17.290 Nicotine dependence, other tobacco product, uncomplicated; Z79.899 Other long term (current) drug therapy
CPT/HCPCS: 87637; 96361; 96374; 96375; 99284; J0780; J1200; J1885; J7030

== ENCOUNTER 2023-11-16 07:00 | Emergency (ER) | payer OTHER, SELFPAY ==
[2023-11-16] VITALS (7 sets, daily range): BP systolic 104–122; BP diastolic 61–76; PULSE 76–118; RESP 15–20; TEMP 37.1; O2SAT 97–100
--- NOTE | ~2023-11-16 | US_ITS ---
US abdomen limited INDICATION: Elevated liver function tests. Epigastric pain. PROCEDURE: Realtime right upper abdominal ultrasound. COMPARISON: No prior studies for comparison. FINDINGS: The pancreas is normal without focal mass or pancreatic ductal dilation. Liver echotexture is normal without focal mass or intrahepatic biliary dilatation. There is normal directional flow i n the portal vein. The gallbladder is normal without stones, gallbladder wall thickening or pericholecystic fluid. Comm on bile duct measures 2 mm. No sonographic Davis's sign. IMPRESSION: 1: Normal limited abdominal ultrasound. Reviewed, dictated and finalized at location B.
--- NOTE | ~2023-11-16 | CT_ITS ---
CTA chest PE protocol Ordering provider: Anna Rivera MD History: 28 years Female with . PE . Comparison: None. Technique: CT angiogram chest was performed following timed intravenous injection of contrast. Thin s lice axial images and reformatted coronal images were obtained. Three dimensional reformatted images of the chest were also obtained using a [employer] workstation. . Automated exposure control and iterati ve reconstruction technique were employed. The dose-length product was 634.94 mGy-cm. 100 mL Omnipaque 350 was given IV. Findings: PULMONARY ARTERIES: No pulmonary embolus. VISUALIZED THORACIC INLET: Normal. MEDIASTINUM: Aorta/coronary arteries: The thoracic aorta is normal. Heart/other: The heart is not enlarged. Lymph nodes: No mediastinal or hilar adenopathy. LUNGS: No pulmonary nodules or masses. No infiltrates or effusions. No pneumothorax. Dependent atelectatic c hanges. Pneumonitis is not excluded. VISUALIZED UPPER ABDOMEN: Fat infiltration. Splenomegaly. Areas of lack of enhancement most likely du e to slow circulation the spleen. Follow-up advised. Right renal cyst. Otherwise, the visualized uppe r abdomen is normal. MUSCULOSKELETAL: Soft tissues: The superficial soft tissues are normal. Bones: Normal spine. IMPRESSION: 1. No pulmonary embolism. 2. Dependent atelectatic changes. Pneumonitis is not excluded. 3. Fat infiltration of the liver. 4. Splenomegaly. Reviewed, dictated and finalized at location A.
--- NOTE | ~2023-11-16 | XR_ITS ---
Clinical Indication: Chest pain PA and lateral views of the chest: Comparison: 07/05/2023 Findings: The lungs are clear, without evidence of focal consolidation or pleural effusion. Cardiome diastinal silhouette is within normal limits. Bones and soft tissues are unremarkable. Impression: Normal chest. Reviewed, dictated and finalized at location . Impression: Normal chest.
--- NOTE | 2023-11-16 07:02 | ECG_ITS ---
Test Date: 2023-11-16 07:11:26 Measurements Intervals [place] Rate: 117 P: 17 MD: 133 QRS: 18 QRSD: 90 T: -16 QT: 341 QTc: 477 Interpretive Statements SINUS TACHYCARDIA MODERATE T-WAVE ABNORMALITY, CONSIDER ANTERIOR ISCHEMIA BASELINE WANDER- I, II, III, AVR, AVL, AVF ABNORMAL ECG No previous ECG available for comparison Electronically Signed On 11-16-2023 07:45:19 CDT by Guillaume Ayers D.O.
--- NOTE | 2023-11-16 07:14 | ED.CHESTPAIN ---
HPI - Chest Pain General Chief Complaint: Chest Pain Stated Complaint: chest pain Time Seen by Provider: 11/16/23 07:05 History of Present Illness HPI narrative: Patient is a 28 year old female with history of migraines, here with chest pain. Patient notes that the pain began about 5 or 6 hours ago when she was lying down to go to bed. She notes that it is midsternal as well as in her epigastrium and is a hollow sensation. She does note that the pain seems to worsen when she takes deep breaths, does not notice any change with foods. She has felt some associated shortness of breath. She does note that she had some similar symptoms in the past, had some hemoptysis at that time, has not had any hemoptysis today. She had been seen by a urgent care at that time, the symptoms spontaneously resolved, she was advised by her primary care doctor to come get seen in the hospital should she have these symptoms return at any point. No history of PE/DVT however she has been evaluated for possible clot in the past which was negative. She did have a muscle cramp in her left calf this morning which has resolved. No travel, no recent surgeries. She denies any associated cough. She does have a history of heartburn when in the past. She has had some flu-like symptoms that began about 9 days ago, these include some nausea, migraine headache, nasal congestion. She was seen in this ER few days ago and treated for her migraine headache. Of note patient is concerned that she may be Because similar symptoms nausea, fatigue, were also present on her prior pregnancies. She does not have a regular menstrual cycle due to being on the Depo shot. she has had some vaginal spotting. She is sexually active with 1 partner, no regular barrier contraception used. No urinary symptoms. Related Data Home Medications Medication Instructions Recorded Confirmed atomoxetine 40 mg capsule 60 mg PO DAILY 03/22/23 07/05/23 (Strattera) propranolol 10 mg tablet 10 mg PO PRN PRN Anxiety 03/25/23 07/05/23 trazodone 100 mg tablet 100 mg PO QHS 06/29/23 07/05/23 Allergies Allergy/AdvReac Type Severity Reaction Status Date / Time amoxicillin Allergy Severe Swelling Verified 11/16/23 07:04 of Lip/Tongue/Throat adhesive tape AdvReac Mild Rash Verified 07/05/23 12:58 Review of Systems Review of Systems: All systems reviewed & are unremarkable except as noted in HPI and below PMFSH Past Medical History Medical History Anxiety Chronic left-sided low back pain with left-sided sciatica Depression Eczema Encounter for screening examination for sexually transmitted disease Encounter for screening examination for sexually transmitted disease Fatigue HSV-1 infection HTN (hypertension) Hypercholesterolemia Initiation of Depo Provera Migraine Missed (08/30/19) Morbid obesity with BMI of 40.0-44.9, adult KWADWO (obstructive sleep apnea) Surveillance for Depo-Provera contraception Surgical History Surgical History History of section 10/14/16 primary c/s--arrest of dilation Forrest maternal pp hypertension 10/14/20 rpt c/s Cheryl History of dilation and curettage 08/30/19 suction d&c History of tonsillectomy (04/05/23) Family History Family History Mother Anxiety Depression Bipolar 1 disorder Hypertension Migraines Father Diabetes mellitus Acute myocardial infarction, Onset Age: 49 Kidney failure Heart disease Social History Social History Smoking status: Current every day smoker Tobacco type: cigarettes and e-cigarettes/vaping Second hand tobacco smoke exposure: Yes Additional smoking assessment comments: RARE CIGARETTE SMOKING, MOSTLY VAPING
[2023-11-16 07:20] LABS: Basophils Absolute Auto 0.1 K/mm3 (0.0-0.1); Basophils Percent Auto 1.1 % (0.2-1.2); Eosinophils Absolute Auto 0.1 K/mm3 (0-0.3); Eosinophils Percent Auto 1.5 % (0-4.4); Hematocrit 42.5 % (37.0-47.0); Hemoglobin 14.1 g/dL (12.0-15.0); Immature Granulocyte Absolute 0.04 K/mm3 (0.00-0.031); Immature Granulocyte Percent A 0.4 % (0-0.5); Lymphocytes Absolute Auto 6.41 K/mm3 (0.9-3.2); Lymphocytes Percent Auto 67.8 % (18.3-44.2); Mean Corpuscular HGB Conc 33.2 g/dl (32-36); Mean Corpuscular Hemoglobin 29.3 pg (26-34); Mean Corpuscular Volume 88.2 fl (80-100); Mean Platelet Volume 9.3 fl (7.4-10.4); Monocytes Absolute Auto 0.5 K/mm3 (0.1-0.6); Monocytes Percent Auto 5.2 % (2.6-8.5); Neutrophils Absolute Auto 2.3 K/mm3 (1.3-6.7); Platelet Count Result 274 k/mm3 (150-375); Red Blood Count 4.82 M/mm3 (4.2-5.4); Red Cell Distribution Width 13.5 % (11.5-14.5); White Blood Count 9.5 K/mm3 (4.5-10.0)
[2023-11-16 07:28] LABS: Alanine Aminotransferase 455 U/L (6-35); Albumin Level 4.3 g/dL (3.5-5.1); Alkaline Phosphatase 200 U/L (38-126); Anion Gap 8 mmol/L (4-12); Aspartate Amino Transferase 290 U/L (14-36); Bilirubin,Total 0.8 mg/dL (0.2-1.3); Blood Urea Nitrogen 8 mg/dL (7-17); Calcium 8.9 mg/dL (8.4-10.2); Carbon Dioxide 30 mmol/L (22-30); Chloride 101 mmol/L (98-107); Estimated CRCL calculation 113 ml/min; Estimated Glomerular Filt Rate > 60; Glucose 107 mg/dL (65-110); Lipase 85 U/L (23-300); Potassium 3.5 mmol/L (3.4-5.0); Sodium 139 mmol/L (137-145)
[2023-11-16 07:39] LABS: INR 1.1
[2023-11-16 07:40] LABS: Partial Thromboplastin Time 33.2 Seconds (22.3-36.8)
[2023-11-16 07:40] LABS: Troponin I < 0.012 ng/mL (0.000-0.034)
[2023-11-16 08:05] LABS: Appearance Urine Clear (Clear); Bacteria Urine None Seen /hpf; Bilirubin Urine 1+ (Negative); Blood Urine Negative (Negative); Color Urine Dark Yellow (Yellow); Glucose Urine UA Negative (Negative); Ketones Urine Negative (Negative); Leukocyte Esterase Ur Trace LEU/UL (Negative); Nitrate Urine Negative (Negative); Non Pathogenic Casts 0-2; Protein Urine Trace mg/dL (Negative); Specific Grav Ur 1.023 (1.001-1.035); Squamous Epithelial Cell Urine Few /hpf (Few); WBC Urine 0-5 /hpf (0-3); pH Urine 5.5 (5.0-9.0)
[2023-11-16 08:25] LABS: Add Urine Microscopic? YES
[2023-11-16 08:34] LABS: Influenza A QL RT-PCR Negative (Negative); Influenza B QL RT-PCR Negative (Negative); RSV RNA, RT-PCR Negative (Negative); SARS-CoV-2 RNA PCR Negative (Negative)
--- NOTE | 2023-11-16 10:28 | PC.NURSE ---
pt off the unit at this time for ultrasound.
--- NOTE | 2023-11-16 10:29 | ECG_ITS ---
Test Date: 2023-11-16 10:39:18 Measurements Intervals [employer] Rate: 97 P: 17 PA: 134 QRS: 8 QRSD: 88 T: -6 QT: 325 QTc: 413 Interpretive Statements SINUS RHYTHM T WAVE ABNORMLAITY IN ANTERIO LEADS- CONSIDER ISCHEMIA BASELINE ARTIFACT- I, II, AVR, AVL, VF ABNORMAL ECG Compared to ECG 11/16/2023 07:11:26 HEART RATE HAS DECREASED Electronically Signed On 11-16-2023 10:58:52 CDT by Guillaume Ayers D.O.
[2023-11-16 11:16] LABS: Troponin I < 0.012 ng/mL (0.000-0.034)
[2023-11-16] MEDS: ACETAMINOPHEN 500 MG TABLET 1000 MG PO (11:17)
[2023-11-16 12:07] LABS: Monoscreen Positive (Negative); Negative Monotest Control Negative (Negative); Positive Monotest Control Positive (Positive)
[2023-11-16 12:36] LABS: Hepatitis B Surface Antigen Negative (Negative)
[2023-11-16 12:42] LABS: HAV RESULT Negative (Negative); Hepatitis B Core IgM Result Negative (Negative)
[2023-11-16 12:54] LABS: Hepatitis C Virus Antibody Negative (Negative)
== END 2023-11-16 14:51 | disposition home or self-care (01) ==
PROVIDERS: Emergency Medicine; Emergency Provider Student in an Organized Health Care Education/Training Program; PCP Physician Assistant
DX: R07.89 Other chest pain (principal); R74.01 Elevation of levels of liver transaminase levels; I10 Essential (primary) hypertension; F17.290 Nicotine dependence, other tobacco product, uncomplicated; Z20.822 Contact with and (suspected) exposure to COVID-19
CPT/HCPCS: 36415; 71046; 71275; 76705; 80053; 80074; 81001; 81025; 83690; 84484; 85025; 85380; 85610; 85730; 86308; 87637; 93005; 99284; A9270; Q9967

== ENCOUNTER 2023-11-21 10:13 | Emergency (ER) | payer OTHER, SELFPAY ==
[2023-11-21 10:22] VITALS: BP 119/87; PULSE 110; RESP 18; TEMP 36.8; O2SAT 98
--- NOTE | 2023-11-21 10:22 | ED.ABDPAIN ---
HPI - Abdominal Pain General Chief Complaint: Abdominal Pain Stated Complaint: L side abd pain / +[place] / note for work Time Seen by Provider: 11/21/23 10:22 Source: patient Mode of arrival: ambulatory Limitations: no limitations History of Present Illness HPI narrative: 28-year-old female here for work note. Patient reports diagnosed with mono 1 week ago. Was having left-sided abdominal pain, had CT scan that showed enlarged spleen. Was then tested for mono. Patient continues to have left-sided abdominal pain, no worsening. Patient here for work note with restrictions for lifting. All Systems reviewed and negative except as noted above. Related Data Home Medications Medication Instructions Recorded Confirmed atomoxetine 40 mg capsule 60 mg PO DAILY 03/22/23 11/21/23 (Strattera) propranolol 10 mg tablet 10 mg PO PRN PRN Anxiety 03/25/23 11/21/23 trazodone 100 mg tablet 100 mg PO QHS 06/29/23 11/21/23 Allergies Allergy/AdvReac Type Severity Reaction Status Date / Time amoxicillin Allergy Severe Swelling Verified 11/21/23 10:32 of Lip/Tongue/Throat silver Allergy Rash Verified 11/21/23 10:32 adhesive tape AdvReac Mild Rash Verified 11/21/23 10:32 Review of Systems Review of Systems: CONSTITUTIONAL: Denies fever, chills, or sweats. reports fatigue. EYES: Denies visual changes, redness, or discharge. ENT: Denies rhinorrhea, congestion, sore throat, or otalgia. CARDIOVASCULAR: Denies chest pain, palpitations, or edema. RESPIRATORY: Denies cough or dyspnea. GASTROINTESTINAL: reports left-sided abdominal pain. Denies nausea, vomiting, or diarrhea. GENITOURINARY: Denies dysuria or hematuria. SKIN: Denies rash or itching. MUSCULOSKELETAL: Denies back pain, joint pain, or myalgia. NEUROLOGIC: Denies headache, numbness, or weakness. PSYCHIATRIC: Denies anxiety or depression. All other systems reviewed are negative, except as documented in HPI. [facility] Past Medical History Medical History Anxiety Chronic left-sided low back pain with left-sided sciatica Depression Eczema Encounter for screening examination for sexually transmitted disease Encounter for screening examination for sexually transmitted disease Fatigue HSV-1 infection HTN (hypertension) Hypercholesterolemia Initiation of Depo Provera Migraine Missed (08/30/19) Morbid obesity with BMI of 40.0-44.9, adult KWADWO (obstructive sleep apnea) Surveillance for Depo-Provera contraception Surgical History Surgical History History of section 10/14/16 primary c/s--arrest of dilation Forrest maternal pp hypertension 10/14/20 rpt c/s Cheryl History of dilation and curettage 08/30/19 suction d&c History of tonsillectomy (04/05/23) Family History Family History Mother Anxiety Depression Bipolar 1 disorder Hypertension Migraines Father Diabetes mellitus Acute myocardial infarction, Onset Age: 49 Kidney failure Heart disease Social History Social History Smoking status: Current every day smoker Tobacco type: cigarettes and e-cigarettes/vaping Second hand tobacco smoke exposure: Yes Additional smoking assessment comments: RARE CIGARETTE SMOKING, MOSTLY VAPING Alcohol intake: current Drinks per week: 6 Alcohol use details: occasional Substance use: current Substance use type: does not use Other substance usage details: 5-7 times a year Do You Feel Safe in your Home?: Yes Lack of Transportation: No Lack of Food: Never True Current Housing: I Do Not Have Housing Concerned About Future Housing: Decline to Answer Difficulty Paying Gas/Electric Bills: No Difficulty Paying for Meds: No Currently Unemployed: No Education: [employer]
== END 2023-11-21 10:36 | disposition home or self-care (01) ==
PROVIDERS: Emergency Provider Nurse Practitioner Family
DX: B27.90 Infectious mononucleosis, unspecified without complication (principal); F17.290 Nicotine dependence, other tobacco product, uncomplicated; I10 Essential (primary) hypertension; E78.00 Pure hypercholesterolemia, unspecified; E66.01 Morbid (severe) obesity due to excess calories; Z68.35 Body mass index [BMI] 35.0-35.9, adult
CPT/HCPCS: 99211; G0463

== ENCOUNTER 2024-01-04 07:14 | Outpatient (CLI) | payer OTHER, SELFPAY ==
--- NOTE | ~2024-01-04 | US_ITS ---
US abdomen complete EXAMINATION: US Abdomen Complete INDICATION: Splenomegaly PROCEDURE: Realtime High Resolution abdomen ultrasound. COMPARISON: No prior studies for comparison FINDINGS: Gallbladder within normal limits. No gallstones, pericholecystic fluid, gallbladder wall t hickening or biliary dilatation. Common bile duct measures 3 mm. Liver echotexture within normal limits without focal mass. Pancreas within normal limits. Pancreati c tail is obscured by bowel gas. Spleen is unremarkeable. Renal echotexture is within normal limits bilaterally without hydronephrosis, contour deforming mass or renal stone. Right kidney measures 9.7 cm. Left kidney measures 9.4 cm. There is a right renal cyst. Visualized aspects of the aorta and IVC are within normal limits. Portal vein is patent. No sonograph ic Davis's sign indicated by the technologist. IMPRESSION: 1: Unremarkable abdominal ultrasound. Reviewed, dictated and finalized at location B.
== END 2024-01-04 07:15 | disposition home or self-care (01) ==
LOC: ANHIMG 07:18
PROVIDERS: PCP Physician Assistant; Visit Provider Physician Assistant
DX: R16.1 Splenomegaly, not elsewhere classified (principal)
CPT/HCPCS: 76700

== ENCOUNTER 2024-02-15 18:05 | Emergency (ER) | payer OTHER, SELFPAY ==
[2024-02-15 18:24] VITALS: BP 120/83; PULSE 89; RESP 16; TEMP 36.6; O2SAT 100
--- NOTE | 2024-02-15 18:30 | ED.URI ---
HPI - URI/Sore Throat General Chief Complaint: Upper Respiratory Infection Stated Complaint: cold symptoms Time Seen by Provider: 02/15/24 18:20 Source: patient Mode of arrival: ambulatory Limitations: no limitations History of Present Illness HPI Narrative: Patient is a 28-year-old female who presents with runny nose and sneezing since Tuesday, cough started yesterday and sore throat started today. Patient states sore throat is worse in the morning and improves throughout today. Patient has not taken anything for symptoms. Denies any fever, chills, nausea, vomiting, diarrhea. 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 Related Data Home Medications Medication Instructions Recorded Confirmed atomoxetine 40 mg capsule 60 mg PO DAILY 03/22/23 02/15/24 (Strattera) propranolol 10 mg tablet 10 mg PO PRN PRN Anxiety 03/25/23 02/15/24 trazodone 100 mg tablet 100 mg PO QHS 06/29/23 02/15/24 doxepin 50 mg capsule 50 mg PO HS 02/15/24 02/15/24 Allergies Allergy/AdvReac Type Severity Reaction Status Date / Time amoxicillin Allergy Severe Swelling Verified 02/15/24 18:20 of Lip/Tongue/Throat adhesive tape AdvReac Mild Rash Verified 02/15/24 18:20 silver AdvReac Mild Rash Verified 02/15/24 18:20 Review of Systems Review of Systems: All systems reviewed & are unremarkable except as noted in HPI and below Constitutional: Constitutional: Denies body ache(s), Denies chills, Denies fatigue, Denies fever(s), Denies headache(s), Denies malaise and Denies weakness Eyes: Eyes: Denies blurry vision, Denies itchy eyes and Denies loss of vision ENT: Denies otalgia, Denies headache(s), Reports nasal congestion, Denies sinus pain and Reports sore throat Cardiovascular: Cardiovascular: Denies chest pain, Denies irregular heart rhythm and Denies dyspnea Respiratory: Respiratory: Reports cough and Denies dyspnea Gastrointestinal: Gastrointestinal: Denies abdominal pain, Denies diarrhea, Denies nausea and Denies vomiting Musculoskeletal: Musculoskeletal: Denies back pain, Denies myalgias and Denies arthralgias Integumentary/Breasts: Skin/Breast: Denies pruritus and Denies rash Neurologic: Denies headache(s), Denies loss of vision and Denies weakness Psychiatric: Psychiatric: Reports no additional psychiatric complaints Endocrine: Endocrine: Denies fatigue Allergic/Immunologic: Allergic/Immunologic: Denies itchy eyes PMFSH Past Medical History Medical History Anxiety Chronic left-sided low back pain with left-sided sciatica Depression Eczema Encounter for screening examination for sexually transmitted disease Encounter for screening examination for sexually transmitted disease Fatigue HSV-1 infection HTN (hypertension) Hypercholesterolemia Initiation of Depo Provera Migraine Missed (08/30/19) Morbid obesity with BMI of 40.0-44.9, adult KWADWO (obstructive sleep apnea) Surveillance for Depo-Provera contraception Surgical History Surgical History History of section 10/14/16 primary c/s--arrest of dilation Forrest maternal pp hypertension 10/14/20 rpt c/s Cheryl History of dilation and curettage 08/30/19 suction d&c History of tonsillectomy (04/05/23) Family History Family History Mother Anxiety Depression Bipolar 1 disorder Hypertension Migraines Father Diabetes mellitus Acute myocardial infarction, Onset Age: 49 Kidney failure Heart disease Social History Social History Smoking status: Current every day smoker Tobacco type: cigarettes and e-cigarettes/vaping Second hand tobacco smoke exposure: Yes Additional smoking assessment comments: RARE CIGARETTE SMOKING, MOSTLY VAPING Alcohol
[2024-02-15 19:07] LABS: EDSTREPNEGPOS1 Negative (Negative)
[2024-02-15 19:07] LABS: EDCOVIDSCREEN Negative (Negative); EDINFLUASCREEN Negative (Negative); EDINFLUBSCREEN Negative (Negative)
== END 2024-02-15 19:04 | disposition home or self-care (01) ==
PROVIDERS: Emergency Provider Nurse Practitioner Family; PCP Physician Assistant
DX: J06.9 Acute upper respiratory infection, unspecified (principal); Z20.822 Contact with and (suspected) exposure to COVID-19; F17.290 Nicotine dependence, other tobacco product, uncomplicated; I10 Essential (primary) hypertension; E78.00 Pure hypercholesterolemia, unspecified; E66.01 Morbid (severe) obesity due to excess calories; Z68.35 Body mass index [BMI] 35.0-35.9, adult; F32.A Depression, unspecified
CPT/HCPCS: 87081; 87426; 87804; 87880; 99213; G0463

== ENCOUNTER 2024-05-06 15:19 | Emergency (ER) | payer OTHER, SELFPAY ==
--- NOTE | ~2024-05-06 | XR_ITS ---
CHEST RADIOGRAPH, PA AND LATERAL CLINICAL HISTORY: cough . COMPARISON: 11/16/2023 TECHNIQUE: PA and lateral views of the chest. FINDINGS The cardiomediastinal silhouette is unremarkable. The lungs are clear. Visualized osseous structures and soft tissues are unremarkable. IMPRESSION: No focal infiltrate or effusion. Reviewed, dictated and finalized at location A. RINARY TECHNICIAN ASSISTANT
[2024-05-06 15:38] VITALS: BP 135/83; PULSE 110; RESP 16; TEMP 37; O2SAT 100
--- NOTE | 2024-05-06 15:39 | ED_ITS ---
HPI - URI/Sore Throat General Chief Complaint: Upper Respiratory Infection Stated Complaint: Cough and Congestion Source: patient Mode of arrival: ambulatory Limitations: no limitations History of Present Illness HPI Narrative: 28-year-old female presented for complaint of body aches, sinus congestion, cough, fever/chills. Onset 3 days. Today's fever up to 101.3. Endorses pain with deep breaths. Denies sob, wheezing, n/v/d. Pt vapes. Tested negative for COVID today. Related Data Home Medications ?Medication ?Instructions ?Recorded ?Confirmed ?Last Taken ?Type atomoxetine 40 mg capsule 60 mg PO DAILY 03/22/23 02/15/24 Unknown History (Strattera) propranolol 10 mg tablet 10 mg PO PRN PRN Anxiety 03/25/23 02/15/24 Unknown History trazodone 100 mg tablet 100 mg PO QHS 06/29/23 02/15/24 Unknown History doxepin 50 mg capsule 50 mg PO HS 02/15/24 02/15/24 Unknown History Allergies Allergy/AdvReac Type Severity Reaction Status Date / Time amoxicillin Allergy Severe Swelling Verified 05/06/24 15:41 of Lip/Tongue/Throat adhesive tape AdvReac Mild Rash Verified 05/06/24 15:41 silver AdvReac Mild Rash Verified 05/06/24 15:41 Review of Systems Review of Systems: per HPI 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 Encounter for screening examination for sexually transmitted disease KWADWO (obstructive sleep apnea) Initiation of Depo Provera Encounter for screening examination for sexually transmitted disease Surveillance for Depo-Provera contraception Missed (08/30/19) Morbid obesity with BMI of 40.0-44.9, adult Depression Anxiety Eczema Hypercholesterolemia Migraine HTN (hypertension) Surgical History Surgical History History of tonsillectomy (04/05/23) History of dilation and curettage 08/30/19 suction d&c History of section 10/14/16 primary c/s--arrest of dilation Forrest maternal pp hypertension 10/14/20 rpt c/s Cheryl Family History Family History Mother Anxiety Depression Bipolar 1 disorder Hypertension Migraines Father Diabetes mellitus Acute myocardial infarction, Onset Age: 49 Kidney failure Heart disease Social History Social History Smoking status: Current every day smoker Tobacco type: cigarettes and e-cigarettes/vaping Second hand tobacco smoke exposure: Yes Additional smoking assessment comments: RARE CIGARETTE SMOKING, MOSTLY VAPING Alcohol intake: current Drinks per week: 6 Alcohol use details: occasional Substance use: current Substance use type: does not use Other substance usage details: 5-7 times a year Do You Feel Safe in your Home?: Yes Lack of Transportation: No Lack of Food: Never True Current Housing: I Do Not Have Housing Concerned About Future Housing: Decline to Answer Difficulty Paying Gas/Electric Bills: No Difficulty Paying for Meds: No Currently Unemployed: No Education: High School Diploma/GED Difficulty w/ Childcare or Family Care: No Living arrangements: with family Additional living arrangements comments: Occupation/Education: occupation 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 Please see nursing chart for further information. There is no relevant family history pertinent to the presenting complaint Exam Narrative: GENERAL: Well-appearing, in no acute distress. EYES: EOMI. No redness or drainage. Conjunctivae normal. ENT: Mucous membranes pink and moist. No rhinorrhea. TMs normal bilaterally. Throat normal. Uvula midline. NECK: Normal AROM. Supple. CHEST: No respiratory distress. Lungs clear to all lynn. HEART: Regular rate and rhythm. No murmur appreciated. SKIN: Warm, dry, no rash. Capillary refill normal. Normal skin turgor. NEURO: Alert and oriented x3. Gait steady. PSYCH: Normal affect. Course Course Emergency Course: Patient is aware of diagnosis, understands and agrees to treatment plan. Ant icipatory guidance given. Patient agrees to follow-up as directed and is aware of reasons to seek care at the emergency department. Portions of this record may have been created with voice recognition software Level of Care: Express Care Visit Vital Signs Vital signs: Vital Signs Temperature 98.6 F 05/06/24 15:38 Pulse Rate 110 H 05/06/24 15:38 Respiratory Rate 16 05/06/24 15:38 Blood Pressure 135/83 05/06/24 15:38 Pulse Oximetry 100 05/06/24 15:38 Temperature 98.6 F 05/06/24 15:38 Pulse Rate 110 H 05/06/24 15:38 Respiratory Rate 16 05/06/24 15:38 Blood Pressure 135/83 05/06/24 15:38 Pulse Oximetry 100 05/06/24 15:38 MDM - URI/Sore Throat MDM Narrative Medical decision making narrative: Results of influenza test reviewed with patient. The chest x-ray reviewed with patient. Discussed physical exam findings. Advised supportive measures and signs/symptoms to go to the ER. Pt is appropriate for outpt treatment and f/u. Differential Diagnosis Differential diagnosis: Likely upper respiratory infection, otitis media, sinusitis, viral infection, bronchitis, influenza and pharyngitis Lab Data Labs: Lab Results 05/06/24 Range/Units 15:53 POC Influenza A Ag Negative (Negative) POC Influenza B Ag Negative (Negative) Imaging Data Radiologist's impression: Patient: Jacinta Harrington : 1995 MR#: [id number] Age: 28 Acct:[id number] Loc: [facility] ADM Date: 05/06/24Attending Dr: Ordering Physician: Reyna Arnett APRN Date of Service: 05/06/24 Procedure(s): XR chest 2V Accession Number(s): [id number] cc: Raquel, Alecia Morris PA-C; Reyna Arnett APRN~ CHEST RADIOGRAPH, PA AND LATERAL CLINICAL HISTORY: cough . COMPARISON: 11/16/2023 TECHNIQUE: PA and lateral views of the chest. FINDINGS The cardiomediastinal silhouette is unremarkable. The lungs are clear. Visualized osseous structures and soft tissues are unremarkable. IMPRESSION: No focal infiltrate or effusion. Discharge Plan Discharge Clinical Impression: Viral infection Patient Disposition: Home, Self-Care Condition: Stable Instructions: Antibiotic Form, Acute Bronchitis (ED) Additional Instructions: Flu and COVID negative. Acute bronchitis can be contagious because it is usually caused by infection with a virus or bacteria. It is usually for a few days but you can be contagious for up to one week. Avoid crowds until you do not have a fever and symptoms are improved Take medication as directed Recommend Flonase spray and Zyrtec (or Claritin/Loyda) over the counter Cough syrup may cause drowsiness; avoid driving or take it at night time. Tylenol 1000mg every 8 hours as needed for pain Symptomatic treatment includes: rest, fluids, and increase humidity of the air at home. Follow up with your primary care provider as needed in 1 week Go to the ER for worsening symptoms or concerns Patient Language: [place] Islander Prescriptions: New methylprednisolone [Medrol (Harley)] 4 mg tablets,dose pack See Rx Instructions .ROUTE .COMPLEX Qty: 21 0RF Rx Instructions: orally per package directions No Action atomoxetine [Strattera] 40 mg capsule 60 mg PO DAILY doxepin 50 mg capsule 50 mg PO HS cetirizine 10 mg tablet 10 mg PO HS Qty: 30 0RF fluticasone propionate [Flonase Allergy Relief] 50 mcg/actuation spray,suspension 1 spray intranasal DAILY Qty: 16 0RF Rx Instructions: administer into each nostril loratadine 10 mg tablet 10 mg PO DAILY Qty: 30 0RF trazodone 100 mg tablet 100 mg PO QHS hydrocortisone 2.5 % ointment 1 applic topical BID-TID Qty: 28.35 1RF propranolol 10 mg tablet 10 mg PO PRN PRN (Reason: Anxiety) medroxyprogesterone [Depo-Provera] 150 mg/mL syringe 150 mg IM [id number] Qty: 1 3RF Follow-up/Referrals: Raquel,MARY Bertrand [Primary Care Provider] - Time of Disposition: 16:54
[2024-05-06 15:54] LABS: EDINFLUASCREEN Negative (Negative); EDINFLUBSCREEN Negative (Negative)
--- OUTSIDE RECORDS SUMMARY | 2024-05-13 18:36 | XMS_ITS ---
[facility] Organization [facility] Address [address] [place] [address] Care Team Providers Care Vice President Fixed Income Name Role Phone Jerry Torres Primary Care Provider [phone] REASON FOR VISIT Needs Appt. Social History Sex Assigned At : Social History Observation Description Sex Assigned At Female Encounters Encounter Location Date Provider Diagnosis [facility] [address] [place] [address] 03/22/2024 Jerry Torres Plan Of Treatment No Information Progress Notes * Jacinta ELKINS CDOB:1995 (28 yo F)Acc No.[id number]:03/22/2024 Patient:?Jacinta ELKINS :1995???Age:28 Y???Sex:Female Address:[address] [place] [address], [address], [place], [address] * true * Date:? Generated for Printi ward/Yajaira/eTransmitting on:?05/13/2024 06:36 PM TRANSMISSION AND COORDINATION ENGINEER
--- OUTSIDE RECORDS SUMMARY | 2024-05-13 18:36 | XMS_ITS ---
Author Organization [facility] Address [address] [place] [address] Care Team Providers Care Software Engineer Developer Name Role Phone Jerry Torres Primary Care Provider [phone] REASON FOR VISIT other Medications Medication SIG (Take, Route, Fr equency, Duration) Notes Start Date End Date Status hydrOXYzine HCl 25 MG 1-2 tablet as need ed Orally twice a day a day for 30 days 05/04/2024 Ac tive Social History Sex Assigned At : Social History Observation Description Sex Assigned At Female Encounters Encounter Location Date Provider Diagnosis [address] [address] 05/04/2024 Jerry Torres Plan Of Treatment Medication Medication Name Sig Start Date Stop Date Notes hydrOXYzine HCl 25 MG 1-2 tablet as need ed Orally twice a day a day for 30 days 05/04/2024 Progress Notes * Jacinta ELKINS CDOB:1995 (28 yo F)Acc No.[id number]:05/04/2024 Patient:?Jacinta ELKINS :1995???Age:28 Y???Sex:Female Address:[address] [place] [address] [address], [place], [address] * Refills? Start hydrOXYzine HCl Tablet, 25 MG, Orally, 120, 1-2 tablet as needed, twice a day a day, 30 days, Refills=0 * true * Date:? Generated for Everi ward/Yajaira/eTransmitting on:?05/13/2024 06:36 PM RF TEST ENGINEER
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
--- OUTSIDE RECORDS SUMMARY | 2024-05-13 18:37 | XMS_ITS | Patient Health Record ---
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 Name Role Phone Jerry Torres Primary Care Provider Caryl Randhawa Unavailable Allergies Allergen (clinical drug ingredient) Drug/Non Drug Allergy documented on EMR Reaction Allergy Type Onset Date Status amoxicillin Amoxicillin Unknown Drug Allergy Act jun Reason For Referral No Information Medications Medication SIG (Take, Route, Frequency, Duration) Notes Start Date End Date Status Strattera 60 MG 1 capsule in the mor jeancarlos Orally Once a day for 90 days Active hydrOXYzine HCl 25 MG 1-2 tablet as need ed Orally twice a day a day for 30 days 05/04/2024 Active Propranolol HCl ER 60 MG 1 capsule at be dtime Orally Once a day for 90 days 06/01/2023 Active Doxepin HCl 50 MG 1 capsule at bedtime Orally Once a day for 90 days 07/13/2023 Active Social History Tobacco Use: Social History Observation Description Date Details (start date - stop date) Current Smoker NA - NA Sex Assigned At : Social History Observation Description Sex Assigned At Female Dont use, Tobacco Use/Smoking Question Answer Notes Are you a current every day smoker Additional Findings: Tobacco User e-Cigarette PRAPARE Question Answer Notes Date Completed/Updated: 03/19/2024 What is your current housing situation? I have h ousing Are you worried about losing your housing? No What is the highest level of school that you have finished? 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 Check all that apply I do not have problems meeting my needs Has lack of transportation k ept you from medical appointments, meetings, work or from getting things needed for daily living? No How often do you see or talk to people that you care about and feel close to? (For example: talking to friends on the phone, visiting friends or family, going to buddhist or club meetings) More than 5 times a week How stressed are you? Stress is when someone feels tense, nervous, anxious, or can\t sleep at night because their mind is troubled Quite a bit In the past year have you sp ent more than 2 nights in a row in a longterm, chcf, assisted center, or juvenile correctional facility? No Are you a refugee? No What country are you from? [place] Do you feel physically and e motionally safe where you currently live? Yes In the past year, have you b een afraid of your partner or ex-partner? Yes PRAPARE Score: 6 Problems Problem Type SNOMED Code ICD Code Onset Dates Problem Status W/U Status Risk Notes Problem Depression (310731797) Depression (F32.9) Active confirmed Problem Attention deficit hyperactivity disorder (995369291) ADHD (attention deficit hyperactivity disorder), combined type (F90.2) Active confirmed Problem Anxiety (93745456) Anxiety (F41.9) Active confirmed Encounters Encounter Location Date Provider Diagnosis [facility] [address] [place] [address] 03/21/2024 Caryl Randhawa [facility] [address] [place] [address] 03/22/2024 Jerry Torres [address] [place] [address] 05/04/2024 Jerry Torres [address] [place] [address] 06/08/2023 Jerry Torres [address] [place] [address] 12/12/2023 Jerry Torres Depression F32.9 ; Anxiety F41.9 and ADHD (attention deficit hyperactivity disorder), combined type F90.[address] [address] 03/27/2024 Jerry Torres Depression F32.9 ; Anxiety F41.9 and ADHD (attention deficit hyperactivity disorder), combined type F90.[address] [address] 06/01/2023 Jerry Torres Depression F32.9 ; Anxiety F41.9 and ADHD (attention deficit hyperactivity disorder), combined type F90.[address] [address] 07/13/2023 Jerry Torres Depression F32.9 ; Anxiety F41.9 and ADHD (attention deficit hyperactivity disorder), combined type F90.2 Assessments Encounter Date Diagnosis (ICD Code) Assessment Notes Treatment Notes Treatment Clinical Notes Section Notes 06/01/2023 Depression (ICD-10 - F32.9) Client with some anxiety issues, panic attacks. Was off medications for a month and only recently resumed due to having tonsils out. Discussed switching propranolol to ER at bedtime due to client having racing thoughts that are making it hard for her to fall asleep. Client had success with insomnia in past with trazodone and now kids sleep through the night and feels can take. Will see if this consistent taking of propranolol causes lessened panic attacks as well. 06/01/2023 Anxiety (ICD-10 - F41.9) Client with some anxiety issues, panic attacks. Was off medications for a month and only recently resumed due to having tonsils out. Discussed switching propranolol to ER at bedtime due to client having racing thoughts that are making it hard for her to fall asleep. Client had success with insomnia in past with trazodone and now kids sleep through the night and feels can take. Will see if this consistent taking of propranolol causes lessened panic attacks as well. 07/13/2023 Depression (ICD-10 - F32.9) Client to work on consisently taking medications for the next month. Client agreeable to changing trazodone to doxepin to see if more helpful for depression/anx iety. Discussed for client to take 25 mg of doxepin nightly (not prn) and if not enough for insomnia to increase dosage to 50 mg (2 capsules) after one week. Client verbalizes understanding. 07/13/2023 Anxiety (ICD-10 - F41.9) Client to work on consisently taking medications for the next month. Client agreeable to changing trazodone to doxepin to see if more helpful for depression/anx iety. Discussed for client to take 25 mg of doxepin nightly (not prn) and if not enough for insomnia to increase dosage to 50 mg (2 capsules) after one week. Client verbalizes understanding. 12/12/2023 Depression (ICD-10 - F32.9) 03/27/2024 Depression (ICD-10 - F32.9) Despite recent stressors, client doing well. No treatment plan changes needed. 12/12/2023 Anxiety (ICD-10 - F41.9) 03/27/2024 Anxiety (ICD-10 - F41.9) Despite recent stressors, client doing well. No treatment plan changes needed. 07/13/2023 ADHD (attention deficit hyperactivity disorder), combined type (ICD-10 - F90.2) Client to work on consisently taking medications for the next month. Client agreeable to changing trazodone to doxepin to see if more helpful for depression/anx iety. Discussed for client to take 25 mg of doxepin nightly (not prn) and if not enough for insomnia to increase dosage to 50 mg (2 capsules) after one week. Client verbalizes understanding. 06/01/2023 ADHD (attention deficit hyperactivity disorder), combined type (ICD-10 - F90.2) Client with some anxiety issues, panic attacks. Was off medications for a month and only recently resumed due to having tonsils out. Discussed switching propranolol to ER at bedtime due to client having racing thoughts that are making it hard for her to fall asleep. Client had success with insomnia in past with trazodone and now kids sleep through the night and feels can take. Will see if this consistent taking of propranolol causes lessened panic attacks as well. 12/12/2023 ADHD (attention deficit hyperactivity disorder), combined type (ICD-10 - F90.2) 03/27/2024 ADHD (attention deficit hyperactivity disorder), combined [...] uses of medication, suicidal ideation with SSRIs, self-administratio n and compliance with medication along with how to safely store medication. Verbal informed consent obtained. Client agrees to return sooner if symptoms worsen or if suicidal or homicidal ideations occur. Client has the phone number to the 24-hour crisis line at [facility]. Questions addressed. Client verbalized understanding of all information and is agreeable to treatment plan. Despite recent stressors, client doing well. No treatment plan changes needed. 06/01/2023 Other Discussed sleep hygiene and caffeine intake with encouragement to limit electronic devices an hour before bed and to limit caffeine after 3:00pm. Exercise benefits for mood and health discussed. Psychoeducation regarding psychiatric illness provided. Client was educated about risks and benefits of medication, alternatives to medication, off label uses of medication, suicidal ideation with SSRIs, self-administratio n and compliance with medication along with how to safely store medication. Verbal informed consent obtained. Client agrees to return sooner if symptoms worsen or if suicidal or homicidal ideations occur. Client has the phone number to the 24-hour crisis line at [facility]. Questions addressed. Client verbalized understanding of all information and is agreeable to treatment plan. Client with some anxiety issues, panic attacks. Was off medications for a month and only recently resumed due to having tonsils out. Discussed switching propranolol to ER at bedtime due to client having racing thoughts that are making it hard for her to fall asleep. Client had success with insomnia in past with trazodone and now kids sleep through the night and feels can take. Will see if this consistent taking of propranolol causes lessened panic attacks as well. 07/13/2023 Other Discussed sleep hygiene and caffeine intake with encouragement to limit electronic devices an hour before bed and to limit caffeine after 3:00pm. Exercise benefits for mood and health discussed. Psychoeducation regarding psychiatric illness provided. Client was educated about risks and benefits of medication, alternatives to medication, off label uses of medication, suicidal ideation with SSRIs, self-administratio n and compliance with medication along with how to safely store medication. Verbal informed consent obtained. Client agrees to return sooner if symptoms worsen or if suicidal or homicidal ideations occur. Client has the phone number to the 24-hour crisis line at [facility]. Questions addressed. Client verbalized understanding of all information and is agreeable to treatment plan. Client to work on consisently taking medications for the next month. Client agreeable to changing trazodone to doxepin to see if more helpful for depression/anx iety. Discussed for client to take 25 mg of doxepin nightly (not prn) and if not enough for insomnia to increase dosage to 50 mg (2 capsules) after one week. Client verbalizes understanding. 12/12/2023 Other Discussed sleep hygiene and caffeine intake with encouragement to limit electronic devices an hour before bed and to limit caffeine after 3:00pm. Exercise benefits for mood and health discussed. Psychoeducation regarding psychiatric illness provided. Client was educated about risks and benefits of medication, alternatives to medication, off label uses of medication, suicidal ideation with SSRIs, self-administratio n and compliance with medication along with how to safely store medication. Verbal informed consent obtained. Client agrees to return sooner if symptoms worsen or if suicidal or homicidal ideations occur. Client has the phone number to the 24-hour crisis line at [facility]. Questions addressed. Client verbalized understanding of all information and is agreeable to treatment plan. Plan Of Treatment No Information Insurance Providers Payer Name Payer Address Payer Phone Subscriber Number Group Number Insured Name Patient Relationship to Insured Coverage Start Date Coverage End Date [facility] Attn Claims Department [address] [place] [address] [phone] [id number] Jacinta Rodrigues Self - patient is the insured 2 [facility] Attn Claims Department [address] [place] [address] [phone] [id number] Jacinta Rodrigues Self - patient is the insured 2 Medical (General) History Medical History History ICD Code vocal cord disorder migraines (not currently taking meds for this) Surgical History Surgery Date(Month/Year) dilatation and curettage 2019 c section 2020 Hospitalization History Reason Date(Month/Year)
--- OUTSIDE RECORDS SUMMARY | 2024-05-13 18:37 | XMS_ITS | Data Portability ---
Author Organization [facility] AKIKOCora aBnks Address [address] [place] [address] Care Team Providers Care Mix Maker Name Role Phone GRACIELA LOURDES Primary Care Provider [phone] Assessment No assessment recorded. Plan of Treatment Reminders Order Date Submit Date Provider Last Modified By Organization Details Last Modified Time Details Appointments None recorded. Lab rapid strep group A, throat 2022 023 [email or web address] In-Office Order, Internal Use Only DO Not Attach Compendium DO Not Attach Compendium, Do Not Delete/merge, [id number] 3 16:41:23 Mycobacteri um tuberculosi s stimulated gamma interferon, qual, blood 2023 024 KELLY WALTERS, [address] [place] [address], [address], [place], [address], 4 20:08:18 CBC w/ auto diff 2023 024 KELLY WALTERS, [address] [place] [address], [address], [place], [address], 4 22:07:52 CMP, serum or plasma 2023 024 KELLY WALTERS, [address] [place] [address], [address], [place], [address], 4 22:07:51 lipid panel, serum 2023 024 [facility], [address] [facility], [address], [place], [place], [address], 4 22:07:51 HbA1c (hemoglobin A1c), blood 2023 024 [facility], [address], [address], [place], [address], 4 09:20:54 TSH + free T4, serum 2023 024 [facility], [address] [facility], [address], [place], [address], 4 09:20:53 cytology report, smear or scraping, cervical or vaginal 2023 024 [facility], [address] [place] [address], [address], [place], [address], 4 13:10:18 bacterial vaginosis score, LILLIE+probe, vaginal fluid (OBS) 2023 024 [facility], [address], [address], [place], [address], 4 15:08:34 Referral otolaryngol ogist referral 2022 023 basilio Epstein MD, [address] [facility], [facility] [address], [place], [address], 3 10:13:14 Procedures None recorded. Surgeries None recorded. Imaging US, breast, unilateral - Breast mass palpated at 6oclock outer breast . [address] (Imaging), [address] [facility] [address], [place], [address], 3 12:18:53 US, spleen 2023 024 [facility] (Imaging), [address], [place], [address], 4 16:37:39 Medication Orders mupirocin 2 % topical ointment 2022 023 [id number], [address], [place], [place], [id number], 4 09:45:13 nystatin 100,000 unit/gram topical powder 2023 024 [id number], [address], [place], [place], [id number], 10:11:44 Patient TargetsNo targets recorded. Patient Instructions Encounter Date Encounter Id Patient Instructions Last Modified By Organization Details Last Modified Time 01/26/2023 [id number] A healthy lifestyle: care instructions Not available 01/26/2023 16:45:35 10/27/2023 [id number] A healthy lifestyle: care instructions Not available 10/31/2023 08:31:39 Reason for Referral Breast Surgeon Referral fo r Recurrent acute streptococcal tonsillitis Referring Physician: Lourdes García, Length Control Tester, Encounter Date: 01/26/2023 Results Created Date Observation Date Name Description Value Unit Range Abnormal Flag Note LastModifiedBy Organization Detail LastModifiedTime 01/27/2001/26/2023 rapid strep group A, throa t Strep negati ve Not Available In-Office Order Internal Use Only DO Not Attach Compendium DO Not Attach Compendium, Do Not Delete/merge, [id number] 01/26/2023 16:41:15 10/27/19 24 10/27/2023 LIPID PANEL cholesterol, total 189 mg/dL 100-19 9 Not Available [facility] Department [address] [place], [address], 10/27/2023 22:07:51 10/27/19 24 10/27/2023 LIPID PANEL triglyceride s 211 mg/dL 0-149 above high normal Not Available [facility] Department [address] [place], [address], 10/27/2023 22:07:51 10/27/19 24 10/27/2023 LIPID PANEL HDL cholesterol 36 mg/dL 40-999 below low normal Not Available [facility] Department [address] [place] [address], [address], 10/27/2023 22:07:51 10/27/19 24 10/27/2023 LIPID PANEL VLDL cholesterol chiara 42 mg/dL 5-40 above high normal Not Available [facility] Department [address] [place] [address], [address], 10/27/2023 22:07:51 10/27/19 24 10/27/2023 LIPID PANEL LDL chol calc (nih) 140 mg/dL 0-99 above high normal Not Available [facility] Department [address] [place] [address], [address], 10/27/2023 22:07:51 10/27/19 24 10/27/2023 COMP. METAB OLIC PANEL (14) glucose 111 mg/dL 70-99 above high normal Not Available [facility] Department [address] [place], [address], 10/27/2023 22:07:51 10/27/19 24 10/27/2023 COMP. METAB OLIC PANEL (14) BUN 12 mg/dL 6-[address] [facility] Department [address] [place], [address], 10/27/2023 22:07:51 10/27/19 24 10/27/2023 COMP. METAB OLIC PANEL (14) creatinine 0.58 mg/dL 0.76-1 .27 below low normal Not Available [facility] Department [address] [place], [address], 10/27/2023 22:07:51 10/27/19 24 10/27/2023 COMP. METAB OLIC PANEL (14) eGFR 126 >=60 Units for eGFR value s are mL/mi n/1.7 3 The eGFR Calcu latio n has not been valid ated for patie nts under the age of 18. If test resul ts are displ ayed for a patie nt under the age of 18, disre zena that value . Not Available [facility] Department [address] [place] [address], [address], 10/27/2023 22:07:51 10/27/19 24 10/27/2023 COMP. METAB OLIC PANEL (14) BUN/creatini ne ratio 21 9-[address] [facility] Department [address] [place] [address], [address], 10/27/2023 22:07:51 10/27/19 24 10/27/2023 COMP. METAB OLIC PANEL (14) sodium 142 mmol/ L 134-[address] [facility] Department [address] [place] [address], [address], 10/27/2023 22:07:51 10/27/19 24 10/27/2023 COMP. METAB OLIC PANEL (14) potassium 3.8 mmol/ L 3.5-5. [address] [facility] Department [address] [place] [address], [address], 10/27/2023 22:07:51 10/27/19 24 10/27/2023 COMP. METAB OLIC PANEL (14) chloride 104 mmol/ L 96-[address] [facility] Department [address] [place] [address], [address], 10/27/2023 22:07:51 10/27/19 24 10/27/2023 COMP. METAB OLIC PANEL (14) carbon dioxide, total 22 mmol/ L 20-[address] [facility] Department [address] [place] [address], [address], 10/27/2023 22:07:51 10/27/19 24 10/27/2023 COMP. METAB OLIC PANEL (14) calcium 9.8 mg/dL 8.7-[address] [facility] Department [address] [place], [address], 10/27/2023 22:07:51 10/27/19 24 10/27/2023 COMP. METAB OLIC PANEL (14) protein, total 7.0 g/dL 6.0-8. [address] [facility] Department [address] [place], [address], 10/27/2023 22:07:51 10/27/19 24 10/27/2023 COMP. METAB OLIC PANEL (14) albumin 4.3 g/dL 4.0-5. [address] [facility] Department [address] [place], [address], 10/27/2023 22:07:51 10/27/19 24 10/27/2023 COMP. METAB OLIC PANEL (14) globulin, total 2.7 g/dL 1.5-4. [address] [facility] Department [address] [place], [address], 10/27/2023 22:07:51 10/27/19 24 10/27/2023 COMP. METAB OLIC PANEL (14) A/G ratio 2.0 1.2-2. [address] [facility] Department [address] [place], [address], 10/27/2023 22:07:51 10/27/19 24 10/27/2023 COMP. METAB OLIC PANEL (14) bilirubin, total 0.4 mg/dL 0.0-1. [address] [facility] Department [address] [place], [address], 10/27/2023 22:07:51 10/27/19 24 10/27/2023 COMP. METAB OLIC PANEL (14) alkaline phosphatase 86 IU/L 44-121 Not Available [facility] Department [address] [place], [address], 10/27/2023 22:07:51 10/27/19 24 10/27/2023 COMP. METAB OLIC PANEL (14) AST (SGOT) 15 IU/L 0-40 Not Available [facility] Department [address] [place], [address], 10/27/2023 22:07:51 10/27/19 24 10/27/2023 COMP. METAB OLIC PANEL (14) ALT (SGPT) 15 IU/L 0-32 Not Available [facility] Department [address] [place], [address], 10/27/2023 22:07:51 10/27/19 24 10/27/2023 CBC WITH DIFFE RENTI AL/PL ATELE T WBC 9.9 x10e3 /uL 3.4-[address] [facility] Department [address] [place], [address], 10/27/2023 22:07:52 10/27/19 24 10/27/2023 CBC WITH DIFFE RENTI AL/PL ATELE T RBC 4.80 x10e6 /uL 3.77-[address] [facility] Department [address] [place], [address], 10/27/2023 22:07:52 10/27/19 24 10/27/2023 CBC WITH DIFFE RENTI AL/PL ATELE T hemoglobin 13.9 g/dL 11.1-[address] [facility] Department [address] [place], [address], 10/27/2023 22:07:52 10/27/19 24 10/27/2023 CBC WITH DIFFE RENTI AL/PL ATELE T hematocrit 43.2 % 34.0-[address] [facility] Department [address] [place], [address], 10/27/2023 22:07:52 10/27/19 24 10/27/2023 CBC WITH DIFFE RENTI AL/PL ATELE T MCV 90 fL 79-[address] [facility] Department [address] [place], [address], 10/27/2023 22:07:52 10/27/19 24 10/27/2023 CBC WITH DIFFE RENTI AL/PL ATELE T MCH 29.0 pg 26.6-[address] [facility] Department [address] [place], [address], 10/27/2023 22:07:52 10/27/19 24 10/27/2023 CBC WITH DIFFE RENTI AL/PL ATELE T MCHC 32.2 g/dL 31.5-[address] [facility] Department [address] [place], [address], 10/27/2023 22:07:52 10/27/19 24 10/27/2023 CBC WITH DIFFE RENTI AL/PL ATELE T RDW 13.1 % 11.5-[address] [facility] Department [address] [place], [address], 10/27/2023 22:07:52 10/27/19 24 10/27/2023 CBC WITH DIFFE RENTI AL/PL ATELE T platelets 288 x10e3 /uL 150-[address] [facility] Department [address] [place], [address], 10/27/2023 22:07:52 10/27/19 24 10/27/2023 CBC WITH DIFFE RENTI AL/PL ATELE T neutrophils 63 % notest b. Not Available [facility] Department [address] [place], [address], 10/27/2023 22:07:52 10/27/19 24 10/27/2023 CBC WITH DIFFE RENTI AL/PL ATELE T lymphs 30 % notest b. Not Available [facility] Department [address] [place], [address], 10/27/2023 22:07:52 10/27/19 24 10/27/2023 CBC WITH DIFFE RENTI AL/PL ATELE T monocytes 5 % notest b. Not Available [facility] Department [address] [place], [address], 10/27/2023 22:07:52 10/27/19 24 10/27/2023 CBC WITH DIFFE RENTI AL/PL ATELE T eos 2 % notest b. Not Available [facility] Department [address] [place], [address], 10/27/2023 22:07:52 10/27/19 24 10/27/2023 CBC WITH DIFFE RENTI AL/PL ATELE T basos 1 % notest b. Not Available [facility] Department [address] [place], [address], 10/27/2023 22:07:52 10/27/19 24 10/27/2023 CBC WITH DIFFE RENTI AL/PL ATELE T neutrophils (absolute) 6.2 x10e3 /uL 1.4-7. [address] [facility] Department [address] [place], [address], 10/27/2023 22:07:52 10/27/19 24 10/27/2023 CBC WITH DIFFE RENTI AL/PL ATELE T lymphs (absolute) 2.9 x10e3 /uL 0.7-3. [address] [facility] Department [address] [place], [address], 10/27/2023 22:07:52 10/27/19 24 10/27/2023 CBC WITH DIFFE RENTI AL/PL ATELE T monocytes(ab solute) 0.5 x10e3 /uL 0.1-0. [address] [facility] Department [address] [place], [address], 10/27/2023 22:07:52 10/27/19 24 10/27/2023 CBC WITH DIFFE RENTI AL/PL ATELE T eos (absolute) 0.2 x10e3 /uL 0.0-0. [address] [facility] Department [address] [place], [address], 10/27/2023 22:07:52 10/27/19 24 10/27/2023 CBC WITH DIFFE RENTI AL/PL ATELE T baso (absolute) 0.1 x10e3 /uL 0.0-0. [address] [facility] Department [address] [place], [address], 10/27/2023 22:07:52 10/27/19 24 10/27/2023 CBC WITH DIFFE RENTI AL/PL ATELE T immature granulocytes 1.1 % notest b. Not Available [facility] Department [address] [place], [address], 10/27/2023 22:07:52 10/27/19 24 10/27/2023 CBC WITH DIFFE RENTI AL/PL ATELE T immature grans (abs) 0.1 x10e3 /uL 0.0-0. [address] [facility] Department [address] [place], [address], 10/27/2023 22:07:52 10/27/19 24 10/27/2023 CBC WITH DIFFE RENTI AL/PL ATELE T NRBC 0 % 0-[address] [facility] Department [address] [place], [address], 10/27/2023 22:07:52 10/27/19 24 10/28/2023 TSH+F REE T4 TSH 1.420 uIU/m L 0.450- 4.500 Not Available [facility] ([facility]) [address] [facility], [place], [address], 10/28/2023 09:20:53 06/20/20 24 10/28/2023 TSH+F REE T4 T4,free(dire ct) 1.00 NG/dL 0.82-1 .77 Not Available [facility] ([facility]) [address] [place], [address], 10/28/2023 09:20:53 10/27/19 24 10/28/2023 HEMOG LOBIN A1C hemoglobin A1C 5.6 % 4.8-5. 6 Predi abete s: 5.7 - 6.4 Diabe dav: >6.4 Glyce [place] contr ol for adult s with diabe dav: <7.0 Not Available [facility] ([facility]) [address] [place], [address], 10/28/2023 09:20:53 10/27/19 24 10/28/2023 QUANT IFERO N-TB GOLD PLUS quantiferon incubation INCUBA TION PERFOR MED. Not Available [facility] ([facility]) [address] [place], [address], 10/29/2023 20:08:18 10/27/19 24 10/28/2023 QUANT IFERO N-TB GOLD PLUS quantiferon criteria COMMEN T Quant iFERO N-TB Gold Plus is a quali tativ e indir ect test for M tuber culos is infec tion (incl uding disea se) and is inten ded for use in conju nctio n with risk asses sment , radio graph y, and other medic al and diagn ostic evalu ation s. The Quant iFERO N-TB Gold Plus resul t is deter mined by subtr actin g the Nil value from eithe r TB antig en (Ag) value . The Mitog en tube serve s as a contr ol for the test. Not Available [facility] ([facility]) [address] [place], [address], 10/29/2023 20:08:18 10/27/19 24 10/29/2023 QUANT IFERO N-TB GOLD PLUS quantiferon- TB gold plus NEGATI VE negati ve No respo nse to M darian ramos is antig ens detec juan. Infec tion with M darian ramos is is unlik kymberly, but high risk indiv idual s shoul d be consi dered for addit ional testi ng (ATS/ IDSA/ CDC Clini chiara Pract ice Guide lines , 2017) . The refer ence range is an Antig en minus Nil resul t of <0.35 IU/mL . Chemi lumin escen ce immun oassa y metho dolog y Not Available [facility] ([facility]) [address] [place], [address], 10/29/2023 20:08:18 10/27/19 24 10/29/2023 QUANT IFERO N-TB GOLD PLUS quantiferon TB1 Ag value 0.07 IU/mL Not Available [facility]) [address] [place], [address], 10/29/2023 20:08:18 10/27/19 24 10/29/2023 QUANT IFERO N-TB GOLD PLUS quantiferon TB2 Ag value 0.06 IU/mL Not Available [facility]) [address] [place], [address], 10/29/2023 20:08:18 10/27/19 24 10/29/2023 QUANT IFERO N-TB GOLD PLUS quantiferon nil value 0.02 IU/mL Not Available [facility] ([facility]) [address] [place], [address], 10/29/2023 20:08:18 10/27/19 24 10/29/2023 QUANT IFERO N-TB GOLD PLUS quantiferon mitogen value >10.00 IU/mL Not Available [facility]) [address] [place], [address], 10/29/2023 20:08:18 02/01/20 24 02/04/2024 NUSWA B VG+, HSV trich vag by LILLIE NEGATI VE negati ve Not Available [facility] ([facility]) [address] [facility], [place], [address], 02/05/2024 15:08:34 02/01/20 24 02/04/2024 NUSWA B VG+, HSV chlamydia trachomatis, LILLIE NEGATI VE negati ve Not Available [facility] ([facility]) [address] [facility], [place], [address], 02/05/2024 15:08:34 02/01/20 24 02/04/2024 NUSWA B VG+, HSV neisseria gonorrhoeae, LILLIE NEGATI VE negati ve Not Available [facility] ([facility]) [address] [facility], [place], [address], 02/05/2024 15:08:34 02/01/20 24 02/04/2024 NUA B VG+, HSV hsv 1 LILLIE NEGATI VE negati ve Not Available [facility] ([facility]) [address] [facility], [place], [address], 02/05/2024 15:08:34 02/01/20 24 02/04/2024 NUSWA B VG+, HSV hsv 2 LILLIE NEGATI VE negati ve Not Available [facility] ([facility]) [address] [facility], [place], [address], 02/05/2024 15:08:34 02/01/20 24 02/05/2024 NUSWA B VG+, HSV atopobium vaginae LOW - 0 score Not Available [facility] ([facility]) [address] [place], [address], 02/05/2024 15:08:34 02/01/20 24 02/05/2024 NUSWA B VG+, HSV bvab 2 LOW - 0 score Not Available [facility] ([facility]) [address] [place], [address], 02/05/2024 15:08:34 02/01/20 24 02/05/2024 NUSWA B VG+, HSV megasphaera 1 LOW - 0 score Calcu late total score by jaime banerjee the 3 indiv idual bacte rial vagin osis (BV) marke r score s toget her. Total score is inter prete d as follo ws: Total score 0-1: Indic ates the absen ce of BV. Total score 2: Indet ermin ate for BV. Addit ional clini chiara data shoul d be evalu ated to estab hector a diagn osis. Total score 3-6: Indic ates the prese nce of BV. Not Available [facility] ([facility]) [address] [facility], [place], [address], 02/05/2024 15:08:34 02/01/20 24 02/05/2024 NUSWA B VG+, HSV serena albicans, LILLIE NEGATI VE negati ve Not Available [facility] ([facility]) [address] [facility], [place], [address], 02/05/2024 15:08:34 02/01/20 24 02/05/2024 NUSWA B VG+, HSV serena glabrata, LILLIE NEGATI VE negati ve Not Available [facility] ([facility]) [address] [facility], [place], [address], 02/05/2024 15:08:34 02/01/20 24 02/06/2024 PAP IG (IMAG E GUIDE D) diagnosis: COMMEN T NEGAT ALVERTO FOR INTRA EPITH ELIAL LESIO N OR MALIG BETO . Not Available [facility] ([facility]) [address] [place], [address], 02/06/2024 13:10:18 02/01/20 24 02/06/2024 PAP IG (IMAG E GUIDE D) specimen adequacy: COMMEN T Satis facto ry for evalu ation . No endoc ervic al compo nent is ident ified . Not Available [facility] ([facility]) [address] [facility], [place], [address], 02/06/2024 13:10:18 02/01/20 24 02/06/2024 PAP IG (IMAG E GUIDE D) clinician provided ICD10: VAL Madison Z12.4 Not Available [facility] ([facility]) [address] [facility], [place], [address], 02/06/2024 13:10:18 02/01/20 24 02/06/2024 PAP IG (IMAG E GUIDE D) performed by: Tomy Hatfield (ASCP ) Not Available [facility] ([facility]) [address] [facility], [place], [address], 02/06/2024 13:10:18 02/01/20 24 02/06/2024 PAP IG (IMAG E GUIDE D) . . Not Available [facility] ([facility]) [address] [facility], [place], [address], 02/06/2024 13:10:18 02/01/20 24 02/06/2024 PAP IG (IMAG E GUIDE D) note: VAL Madison The Pap smear is a scree jeancarlos test desig kassidy to aid in the detec tion of darling ligna nt and malig nant condi tions of the uteri ne cervi x. It is not a diagn ostic proce dure and shoul d not be used as the sole means of detec ting cervi chiara cance r. Both false -posi tive and false -nega tive repor ts do occur . Not Available [facility] ([facility]) [address] [place], [address], 02/06/2024 13:10:18 02/01/20 24 02/06/2024 PAP IG (IMAG E GUIDE D) test methodology: VAL Madison This liqui d based ThinP rep(R ) pap test was scree kassidy with the use of an image guide d syste m. Not Available [facility] ([facility]) [address] [facility], [place], [address], 02/06/2024 13:10:18 10/22/19 23 10/21/2022 imagi ng/di agnos tic resul t No observ ation record ed. [address] [address], [place], [address], 10/26/2022 19:28:14 10/22/19 23 10/21/2022 imagi ng/di agnos tic resul t No observ ation record ed. [address] [address], [place], [address], 10/21/2022 20:58:29 07/05/19 24 07/05/2023 lab* No observ ation record ed. [address] [address], [place], [address], 07/06/2023 07:46:49 11/16/19 24 11/16/2023 XR, chest , 2 view No observ ation record ed. [address] [address], [place], [address], 11/16/2023 13:33:14 11/16/19 24 11/16/2023 CT, abdom en + pelvi s, w/ contr ast No observ ation record ed. [address] [address], [place], [address], 11/23/2023 07:55:11 11/16/19 24 11/16/2023 US, abdom en, limit ed No observ ation record ed. [address] [address], [place], [address], 11/16/2023 13:46:04 01/04/20 24 01/04/2024 US, abdom en, compl ete No observ ation record ed. [address] [address], [place], [address], 01/04/2024 13:48:56 01/04/20 24 01/04/2024 US, abdom en, compl ete No observ ation record ed. [address], [place], [address], 01/05/2024 10:11:34 05/06/20 24 05/06/2024 XR, chest , 2 view No observ ation record ed. [address] [facility] [address], [place], [address], 05/07/2024 08:28:50 Result Notes None recorded. Problems Name Problem SNOMED Code Status Onset Date Resolution Date Notes Provider Name and Address Organization Details Recorded Time [facility] 06901480 Active 2020 Reyna pond [place] - [facility] 1 15:29:41 Obesity 690408399 Active 2021 MARY SKINNER Attn: Ledy banerjee,[address] [facility], [place], [address], [facility] - SIF 2 10:03:13 Plantar fasciitis 442364277 Active 2021 MARY SKINNER Attn: Ledy banerjee,[address] [facility], [place], [address], [facility] - SIF 2 10:05:45 Mass of right breast [id number] 106 Active 2022 MARY SKINNER Attn: Ledy banerjee,[address] [facility], [place], [address], [facility] - SIF 3 14:32:20 Problem Notes None recorded. Procedures Surgical History Date Name Laterality Status Provider Name and Address Organization Details Recorded Time 02/06/2021 Date of Last Pap Smear completed Reyna [place] - [place] 03/12/2021 15:32:34 Imaging Results Imaging Date Name Status LastModified by Organiz ation Details LastModified Time 10/21/2022 imaging/diagn ostic result completed [address], [place], [address], 10/26/2022 19:28:14 10/21/2022 imaging/diagn ostic result completed [address] [address], [place], [address], 10/21/2022 20:58:29 07/05/2023 lab* completed [address] [address], [place], [address], 07/06/2023 07:46:49 11/16/2023 XR, chest, 2 view completed [address] [address], [place], [address], 11/16/2023 13:33:14 11/16/2023 CT, abdomen + pelvis, w/ contrast completed [address] [address], [place], [address], 11/23/2023 07:55:11 11/16/2023 US, abdomen, limited completed [address] [address], [place], [address], 11/16/2023 13:46:04 01/04/2024 US, abdomen, complete completed [address] [address], [place], [address], 01/04/2024 13:48:56 01/04/2024 US, abdomen, complete completed [address] [address], [place], [address], 01/05/2024 10:11:34 05/06/2024 XR, chest, 2 view completed [address], [address], 05/07/2024 08:28:50 Procedure Notes None recorded. Medical Equipment None Reported. Allergies Allergen ID Allergen Name Allergen Category Reaction Reaction Severity Criticality Documentation Date Start Date Code Code System Note Provider Name and Address Organization Details Recorded Time 488037 adhesive tape environme nt,medica tion Not available Not available Not available 03/12/2021 Reyna Yeearza null, [place] - S[facility] 1 15:28:04 [id number] amoxicill in medicatio n Not available Not available Not available 03/12/2021 723 RxNorm itchy tongu e and hives in arms MARY SKINNER Attn: Ledy banerjee,[address] [facility], [place], [address], [place] - [place] 3 10:38:41 Medications Name Sig Start Date Stop Date Status Note LastModified by Organization Details LastModified Time doxepin 50 mg capsule TAKE 1 CAPSULE BY MOUTH DAILY AT BEDTIME active Not Available Not Available No t Available clindamycin HCl 300 mg capsule TAKE 1 CAPSULE BY MOUTH EVERY 8 HOURS FOR 10 DAYS 10/18 completed Not Available Not Available Not Available trazodone 50 mg tablet TAKE 1/2 TO 1 TABLET BY MOUTH EVERY DAY AT BEDTIME NEEDED 01/31 completed Not Available Not Available Not Available cetirizine 10 mg tablet active Not Available Not Available Not Available azithromyci n 250 mg tablet TK 2 TS PO ON DAY 1, THEN TK 1 T PO D FOR 4 DAYS 10/26 completed Not Available Not Available Not Available fluconazole 150 mg tablet TAKE 1 TABLET BY MOUTH 1 TIME 01/31 completed Not Available Not Available Not Available doxepin 25 mg capsule TAKE 1 CAPSULE AT BEDTIME FOR INSOMNIA. CAN TAKE SECOND CAPSULE IF NEEDED. ORALLY ONCE A DAY FOR 30 DAYS 01/31 completed Not Available Not Available Not Available hydrocodone 5 mg-acetamin ophen 325 mg tablet TAKE 1 TABLET BY MOUTH EVERY 3 HOURS NEEDED FOR MODERATE PAIN 03/12 completed Not Available Not Available Not Available Nystop 100,000 unit/gram topical powder APPLY TO AFFECTED AREAS BY TOPICAL ROUTE TWICE DAILY FOR 7 DAYS active Not Available Not Available No t Available prednisone 20 mg tablet TAKE 2 TABLETS BY MOUTH DAILY FOR 3 DAYS 01/31 completed Not Available Not Available Not Available Tubersol 5 tub. unit/0.1 mL intradermal injection solution Administe r .1ml interderm ally 05/07 completed Not Available Not Available Not Available propranolol ER 60 mg capsule,24 hr,extended release TAKE 1 CAPSULE BY MOUTH DAILY AT BEDTIME active Not Available Not Available No t Available topiramate 25 mg tablet Take 1 tablet every day by oral route for 30 days. 01/04 completed Not Available Not Available Not Available doxycycline monohydrate 100 mg tablet Take 1 tablet twice a day by oral route for 10 days. 10/26 completed Not Available Not Available Not Available propranolol 10 mg tablet TAKE 1/2 TO 1 TABLET BY MOUTH TWICE DAILY NEEDED FOR ANXIETY 01/31 completed Not Available Not Available Not Available OneTouch Ultra Test strips 01/31 completed Not Available Not Available Not Available polymyxin B sulfate 10,000 unit-trimet hoprim 1 mg/mL eye drops INSTILL 1 DROP IN RIGHT EYE EVERY 3 HOURS WHILE AWAKE FOR 7 DAYS. DO NOT EXCEED 6 DOSES IN 24 HOURS 01/31 completed Not Available Not Available Not Available fluoxetine 10 mg capsule TAKE 1 CAPSULE BY MOUTH EVERY MORNING WITH 20MG CAPSULE FOR TOTAL DAILY DOSE OF 30MG 01/31 completed Not Available Not Available Not Available hydroxyzine HCl 25 mg tablet TAKE 1 TABLET BY MOUTH FOUR TIMES DAILY NEEDED 04/13 completed Not Available Not Available Not Available mupirocin 2 % topical ointment APPLY SMALL AMOUNT TOPICALLY TO THE AFFECTED AREA THREE TIMES DAILY 01/31 completed Not Available Not Available Not Available gabapentin 100 mg capsule TAKE ONE CAPSULE BY MOUTH THREE TIMES DAILY NEEDED FOR ANXIETY OR INSOMNIA. CAN TAKE 2 CAPSULES FOR INSOMNIA. NO ALCOHOL OR OPOIDS 01/31 completed Not Available Not Available Not Available ibuprofen 600 mg tablet TAKE 1 TABLET BY MOUTH THREE TIMES DAILY NEEDED FOR PAIN 01/31 completed Not Available Not Available Not Available methylpredn isolone 4 mg tablets in a dose pack FOLLOW PACKAGE DIRECTION S 01/31 completed Not Available Not Available Not Available albuterol sulfate HFA 90 mcg/actuati on aerosol inhaler INHALE 2 PUFFS BY MOUTH FOUR TIMES DAILY NEEDED FOR SHORTNESS OF BREATH OR WHEEZING 01/31 completed Not Available Not Available Not Available norethindro ne (contracept alverto) 0.35 mg tablet TAKE 1 TABLET BY MOUTH EVERY DAY 03/12 completed Not Available Not Available Not Available hydrocortis one 2.5 % topical ointment APPLY TOPICALLY TO THE AFFECTED AREA 2 TO 3 TIMES PER DAY 01/31 completed Not Available Not Available Not Available fluoxetine 20 mg capsule TAKE 1 CAPSULE BY MOUTH EVERY DAY 01/31 completed Not Available Not Available Not Available fluticasone propionate 50 mcg/actuati on nasal spray,suspe nsion SHAKE LIQUID AND USE 1 SPRAY IN EACH NOSTRIL DAILY active Not Available Not Available No t Available loratadine 10 mg tablet TAKE 1 TABLET BY MOUTH DAILY active Not Available Not Available No t Available metoclopram robinson 10 mg tablet TK 1 T PO BID FOR 15 DAYS 03/12 completed Not Available Not Available Not Available oxycodone 5 mg tablet TAKE 1 TABLET BY MOUTH EVERY 4 HOURS NEEDED FOR PAIN 01/31 completed Not Available Not Available Not Available azithromyci n 500 mg tablet TAKE 1 TABLET BY MOUTH DAILY FOR 5 DAYS 04/13 completed Not Available Not Available Not Available medroxyprog esterone 150 mg/mL intramuscul ar syringe ADMINISTE R 1 ML IN THE MUSCLE EVERY 3 MONTHS active Not Available Not Available No t Available Strattera 40 mg capsule TAKE 1 CAPSULE BY MOUTH EVERY DAY IN THE MORNING active Not Available Not Available No t Available Strattera 60 mg capsule TAKE 1 CAPSULE BY MOUTH EVERY DAY IN THE MORNING active Not Available Not Available No t Available bupropion HCl XL 150 mg 24 hr tablet, extended release TAKE 1 TABLET BY MOUTH EVERY DAY active Not Available Not Available No t Available nitrofurant oin monohydrate /macrocryst als 100 mg capsule 03/12 completed Not Available Not Available Not Available cephalexin 750 mg capsule TAKE 1 CAPSULE BY MOUTH TWICE DAILY FOR 7 DAYS 03/12 completed Not Available Not Available Not Available Estarylla 0.25 mg-35 mcg tablet TAKE 1 TABLET BY MOUTH EVERY DAY 05/13 completed Not Available Not Available Not Available BinaxNOW COVID-19 Ag Self Test kit TEST DIRECTED TODAY 01/31 completed Not Available Not Available Not Available Vitals Date Recorded Body height Body mass index (BMI) Body weight Heart rate Oxygen saturation Oxygen saturation in Arterial blood by Pulse oximetry Systolic blood pressure Diastolic blood pressure Provider Name and Address Organization Details Last Updated DateTime 3 152.4 cm 36.1 kg/m2 93556.5 9 g 101 /min 98 % 98 % 110 mm[Hg] 64 mm[Hg] Reyna Branham [facility] 3 11:27:23 Date Recorded Body height Body mass index (BMI) Body weight Systolic blood pressure Diastolic blood pressure Provider Name and Address Organization Details Last Updated DateTime 01/26/2023 152.4 cm 35.9 kg/m2 58885 g 110 mm[Hg] 64 mm[Hg] Reyna Branham [facility] 3 10:30:39 Date Recorded Body height Body mass index (BMI) Body weight Heart rate Oxygen saturation Oxygen saturation in Arterial blood by Pulse oximetry Systolic blood pressure Diastolic blood pressure Provider Name and Address Organization Details Last Updated DateTime 4 152.4 cm 36.3 kg/m2 87138.1 8 g 93 /min 99 % 99 % 103 mm[Hg] 71 mm[Hg] Reyna Branham [facility] 4 15:00:07 Date Recorded Body height Body mass index (BMI) Body weight Heart rate Oxygen saturation Oxygen saturation in Arterial blood by Pulse oximetry Systolic blood pressure Diastolic blood pressure Provider Name and Address Organization Details Last Updated DateTime 4 152.4 cm 36.9 kg/m2 11182.9 6 g 99 /min 97 % 97 % 120 mm[Hg] 68 mm[Hg] Reyna Branham [facility] 4 10:28:19 Date Recorded Body height Body mass index (BMI) Body weight Oxygen saturation Oxygen saturation in Arterial blood by Pulse oximetry Heart rate Respiratory rate Systolic blood pressure Diastolic blood pressure Provider Name and Address Organization Details Last Updated DateTime 4 152.4 cm 36 kg/m2 49039.7 g 99 % 99 % 97 /min 17 /min 131 mm[Hg] 85 mm[Hg] Vernell Cleveland MA [facility] 4 09:45:37 Social History Question Answer Notes LastModified by Organizat ion Details LastModified Time Tobacco Smoking Status Current Some Day Smoker stopped smoking, still vaping, Reyna pond [facility] 08/20/2022 14:39:51 Do You Have An Advance Directive? No Information not available 11/13/2021 What Is Your Level Of Alcohol Consumption? Occasional Information not available 03/12/2021 In The 14 Days Before Symptom Onset, Have You Had Close Contact With A Laboratory-confir med COVID-19 While That Case Was Ill? No Information not available 03/12/2021 In The 14 Days Before Symptom Onset, Have You Had Close Contact With A Person Who Is Under Investigation For COVID-19 While That Person Was Ill? No Information not available 03/12/2021 Have You Been To An Area Known To Be High Risk For COVID-19? No Information not available 03/12/2021 Do You Or Have You Ever Used E-cigarettes Or Vape? Current User Of Electronic Cigarettes Information not available 03/12/2021 Do You Have A Medical Power Of Mediator? No Information not available 11/13/2021 What Was The Date Of Your Most Recent Tobacco Screening? 02/01/2024 Information not available 02/01/2024 Do You Have Smoke And Carbon Monoxide Detectors In Your Home? Yes Information not available 03/12/2021 Are You Passively Exposed To Smoke? Yes Information no t available 03/12/2021 How Much Tobacco Do You Smoke? 1 PPW Information not available 03/12/2021 Has Tobacco Cessation Counseling Been Provided? Yes Information not available 03/12/2021 On What Date Was Tobacco Cessation Counseling Provided? 02/01/2024 Information not available 02/01/2024 Do You Or Have You Ever Used Any Other Forms Of Tobacco Or Nicotine? Yes Information not available 03/12/2021 Sex: Female Functional Status None recorded. Mental Status None recorded. Family History Relationship Description Onset Age of this Age Resolved Age Notes LastModified by Organization Details LastModified Time Father No current problems or disability Not available 03/12 15:32:52 Father Diabetes mellitus Not available 2020 15:33:09 Mother No current problems or disability Not available 03/12 15:32:52 Unspecified Relation Anxiety Not available 15:33:32 Unspecified Relation Depressive disorder Not available 2020 15:33:40 Unspecified Relation Migraine Not available 2020 15:33:56 Medical History Condition Response Coronary Artery Disease N Other N Atrial Fibrillation N High Blood Pressure Y Depression Y COPD N Blood Clots N Anxiety Disorder N Muscle, Joint, or Bone Problems N Acid Reflux (GERD) N Cancer N Stroke N High Cholesterol N Liver Disease N Headaches N Kidney or Bladder Problems N Thyroid Problems N GI Problems N Skin Problems N Anemia N Heart Attack (NH) N Diabetes N Seizures/Epilepsy N Asthma N Allergies N Hepatitis N Heart Failure N Osteoporosis N Gynecological History Statement/Question Response Date of Last Mammogram Flow Moderate Date of LMP Duration of Flow (days) 4 Age at Menarche 12 Current Control 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20 Frequency of Cycle (Q days) 28 Menses Monthly Y Date of Last Pap Smear 02/06/2021 LMP Approximate Obstetrics History GPAL:G 4 P 2 0 0 2 Type Value Full Term 2 Living 2 Total 4 Immunizations Vaccine Type Date Status Note Provider Nam e and Address Organization Details Recorded Time Influenza, split virus, quadrivalent, PF 05/07/2022 completed [place], [place] - [facility] 05/07/2022 15:42:30 Tdap 05/07/2022 completed [place], [place] [facility] 05/07/2022 15:39:40 Past Encounters Encounter ID Performer Location Encounter Start Date Encounter Closed Date Diagnosis/Indication Diagnosis SNOMED-CT Code Diagnosis ICD10 Code [id number] [facility] [address] [place] [address] 03/12/2021 15:13:43 03/13/2021 12:23:29 Adult health examination 810081716 Z00.00 Migraine 85540658 G43.90 9 Cholesterol screening 27 3217186 Z13.220 Obesity 245309637 E66.9 Anxiety 74378863 F41.9 [id number] [facility] [address] [place] [address] 04/13/2021 15:54:45 04/14/2021 10:27:40 Obesity 293103335 E66.9 Dyspnea on exertion 6084 5006 R06.09 [id number] Roberto Carlos [facility] [address] [place] [address] 05/13/2021 14:30:26 05/14/2021 08:14:12 History of SARS-CoV-2 1722042609 92278560 Z86.16 Dyspnea on exertion 6084 5006 R06.09 Body mass index 30+ - obesity 504081636 Z68.38 Sleep apnea 88341569 G47 .30 Smokes tobacco daily 449 329942 Z72.0 Vaping 614917291 Z77.29 [id number] Roberto Carlos Chawla [facility] [address] [place] [address] 06/26/2021 15:44:46 07/07/2021 08:32:24 History of SARS-CoV-2 2557013340 15589911 Z86.16 Dyspnea on exertion 6084 5006 R06.09 Body mass index 30+ - obesity 356569228 Z68.38 Sleep apnea 67312514 G47 .30 Smokes tobacco daily 449 067170 Z72.0 Vaping 613795459 Z77.29 [id number] [facility] [address] [place] [address] 11/11/2021 14:48:32 11/13/2021 09:52:44 Obesity 939511053 E66.9 Depression screening 171 699460 Z13.31 Plantar fasciitis 446863 003 M72.2 [id number] RANDAL MAYNARD NP [facility] [address] [place] [address] 11/13/2021 14:45:53 11/16/2021 12:40:21 Sleep apnea 33805748 G47.30 Body mass index 30+ - obesity 153234843 Z68.38 Dyspnea on exertion 6084 5006 R06.09 Smokes tobacco daily 449 179387 Z72.0 Vaping 490353203 Z77.29 History of SARS-CoV-2 29 66790803 06043886 Z86.16 [id number] Pavan Mcclain MD [facility] [address] [place] [address] 12/14/2021 14:54:46 12/15/2021 15:26:05 Chronic tonsillitis 63224595 J35.01 [id number] MARY SKINNER [facility] [address] [facility] [place] [address] 01/04/2022 14:00:53 01/05/2022 15:49:43 Depressive disorder 09990200 F32.A [id number] MARY SKINNER [facility] [address] [facility] [place] [address] 02/05/2022 14:31:41 02/08/2022 15:13:19 Restless legs 11666641 G25.81 Morbid obesity 301717594 E66.01 Depressive disorder 3548 9007 F32.A [id number] MARY SKINNER [facility] [address] [facility] [place] [address] 04/13/2022 14:28:40 04/20/2022 12:31:14 Depressive disorder 34096126 F32.A Adult [facility] th examination 241439576 Z00.00 Tuberculos is screening 125283258 Z11.1 [id number] MARY SKINNER [facility] [address] [facility] [place] [address] 05/07/2022 14:43:34 05/11/2022 11:43:40 Depressive disorder 81842298 F32.A Discharge from nipple 54 936299 N64.52 Administra tion of influenza vaccine 96837767 Z23 Neck pain 75339172 M54.2 Administra tion of diphtheria, pertussis, and tetanus vaccine 741975585 Z23 Daggett hump 26384042 R2 2.2 Deliberate self-cutting 301171726 T14.8XXA Obesity 606041581 E66.9 [id number] MARY SKINNER [facility] [address] [facility] [place] [address] 06/07/2022 14:52:21 06/10/2022 14:56:04 Depressive disorder 22953301 F32.A Discharge from nipple 54 311597 N64.52 Obesity 103813757 E66.9 [id number] MARY SKINNER [place] Cristela e [facility] [address] [place] [address] 07/08/2022 12:21:28 07/08/2022 13:20:48 Mass of right breast 3628737066 3760129 N63.10 [id number] MARY SKINNER [place] [facility] [address] [place] [address] 08/20/2022 14:34:11 08/20/2022 15:27:57 Depressive disorder 12147428 F32.A Obesity 878507869 E66.9 [id number] MARY SKINNER [place] [facility] [address] [place] [address] 10/18/2022 11:21:45 10/18/2022 12:18:53 Mass of right breast 0043686858 6352357 N63.10 [id number] MARY SKINNER [place] Cristela [facility] [address] [place] [address] 01/26/2023 10:21:55 01/26/2023 11:23:47 Recurrent acute streptococcal tonsillitis 5170854693 8487272 J03.01 Impetigo 67727051 L01.00 Obesity 773944541 E66.9 [id number] MARY SKINNER [place] Cristela [facility] [address] [place] [address] 10/27/2023 14:52:36 10/27/2023 16:56:21 Hemoptysis 56838718 R04.2 Adult heal th examination 709728340 Z00.00 Obesity 248128745 E66.8 [id number] MARY SKINNER [place] [facility] [address] [place] [address] 12/22/2023 10:16:34 12/22/2023 11:00:39 Infectious mononucleosis 186580418 B27.90 Splenomegaly 87107439 R1 6.1 [id number] MARY NAVARRO [place] [facility] [address] [place] [address] 02/01/2024 09:33:14 02/01/2024 10:06:44 Screening for malignant neoplasm of cervix 203771367 Z12.4 Candidiasis of skin 4988 3006 B37.2 Depression screening 171 984739 Z13.31 Health Concerns Section Related Observation LastModified by Organization Detai ls LastModified Time None Recorded Concern Status LastModified by Organization Details LastModified Time None Recorded Advance Directives Directive N: Payers Encounter Date Sequence Insurance Name Policy Number Policy Castro Covered Member ID Castro Member ID Guarantor Name 10/18/2022 1 [employer] [facility] [facility] ON OR AFTER 11/06/20 (MEDICAID REPLACEMENT - HMO) Jacinta Harrington [id number] Jacinta Harrington 01/26/2023 1 [employer] [facility] ON OR AFTER 11/06/20 (MEDICAID REPLACEMENT - HMO) Jacinta Harrington [id number] Jacinta Harrington 10/27/2023 1 [facility] ON OR AFTER 11/06/20 (MEDICAID REPLACEMENT - HMO) Jacinta Harrington [id number] Jacinta Harrington 12/22/2023 1 [facility] ON OR AFTER 11/06/20 (MEDICAID REPLACEMENT - HMO) Jacinta Harrington [id number] Jacinta Harrington 12/22/2023 2 [facility] (MEDICARE REPLACEMENT/AD VANTAGE - HMO) Jacinta Harrington [id number] Jacinta Harrington 02/01/2024 1 [facility] ON OR AFTER 11/06/20 (MEDICAID REPLACEMENT - HMO) Jacinta Harrington [id number] Jacinta Harrington Notes Date Note Type Note Provider Name and Address Organization Details Recorded Time 10/18/2022 text/html Jacinta is a 26 YO F here for f/u on breast lump Patient noticed breast lump on right breast. She has seen obgyn for nipple discharge and breast exam was performed without abnormalities this year. He Told her no mammogram was needed. She denies any current pain in area. has not noted any growth. On chart review I have not been able to locate scan from 07/2022. MARY SKINNER Attn: Accounting,[address] [facility], [place], [address], [place] [facility] 10/18/2022 12:22:41 01/26/2023 text/html Jacinta is a 27 YO F here for strep and rash rash on tip of her nose yesterday that looked crusty. she has put alcohol on it. hurts when she does this but otherwise no pain. She is being treated again for strep with z-gildardo. she just finished last dose today. She continues to have swollen throat and painful swallowing. denies fever, chills, cough, sneezing. 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 She enjoys doing this. states depression is well controlled. Has good support system. still going through divorce proceedings. She states she had one episode of bloody sputum and has not happened again. tonsilectomy mar 2023, no complcations MARY SKINNER Attn: Accounting, [address] [facility], [place], [address], [facility] 10/31/2023 08:33:02 12/22/2023 text/html Jacinta is a 28 YO F here for physical for work tested for mono 11/16/[address] scan showed enlarged spleen. She states spleen was causing pain but has felt better. only lingering sx is fatigue. 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 She has tried her best to avoid any punching to her spleen. She has otherwise been well and has avoided heavy lifting. MARY SKINNER Attn: Accounting,[address] [facility], [place], [address], [place] [facility] 12/22/2023 11:11:56 02/01/2024 text/html Pt presents for WWE. , two C sections. Last pap 1 yr ago, no h/o abnormals. LMP unknown, pt is on depo. Denies hematuria, dysuria, odor, irritation, urinary frequency/urgency, or discharge. No h/o STDs. Sexually active with one partner. No FH of ovarian cancer. Pt's mother told her that cervical cancer runs on her side of the family, unknown which family member. Maternal great grandmother with breast cancer, age 86. MARY NAVARRO Attn: Accounting[address] [place], [address], [facility] - [facility] 02/01/2024 10:12:20 OBGyn Episode No OBEpisode recorded.
== END 2024-05-06 16:55 | disposition home or self-care (01) ==
PROVIDERS: Emergency Provider Nurse Practitioner Family; PCP Physician Assistant
DX: B34.9 Viral infection, unspecified (principal); I10 Essential (primary) hypertension; F17.210 Nicotine dependence, cigarettes, uncomplicated
CPT/HCPCS: 71046; 87804; 99213; G0463

== ENCOUNTER 2024-11-18 18:19 | Emergency (ER) | payer OTHER, SELFPAY ==
--- OUTSIDE RECORDS SUMMARY | 2024-11-18 18:21 | XMS_ITS | Patient Health Record ---
Author Organization [facility] Address [address] [place] [address] Care Team Providers Care Archaeologist Name Role Phone Jerry Torres Primary Care Provider [phone] Caryl Randhawa Unavailable Allergies Allergen (clinical drug ingredient) Drug/Non Drug Allergy documented on EMR Reaction Allergy Type Onset Date Status amoxicillin Amoxicillin Unknown Drug Allergy Act jun Reason For Referral No Information Medications Medication SIG (Take, Route, Frequency, Duration) Notes Start Date End Date Status Atomoxetine HCl 60 MG 1 capsule in the m orning Orally Once a day; Duration: 90 day(s) 11/13/2024 Active Doxepin HCl 50 MG 1 capsule at bedtime Orally Once a day; Duration: 90 days 07/13/2023 Active Naltrexone HCl 50 MG 1 tablet Orally Once a day; Duration: 30 days As needed one hour prior to drinking alcohol 11/13/2024 Active Propranolol HCl ER 60 MG 1 capsule at be dtime Orally Once a day; Duration: 90 days 06/01/2023 Active Social History Tobacco Use: Social History Observation Description Date Details (start date - stop date) Current Smoker NA - NA Sex Assigned At : Social History Observation Description Sex Assigned At Female Dont use, Tobacco Use/Smoking Question Answer Notes Are you a current every day smoker Additional Findings: Tobacco User e-Cigarette PRAPARE Question Answer Notes Date Completed/Updated: 09/25/2024 What is your current housing situation? I have h ousing Are you worried about losing your housing? No What is the highest level of school that you have finished? 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 Stress is when someone feels tense, nervous, anxious, or can\t sleep at night because their mind is troubled Somewhat In the past year have you sp ent more than 2 nights in a row in a fdc, intermediate, skilled nursing center, or juvenile correctional facility? No Are you a refugee? No Do you feel physically and e motionally safe where you currently live? Yes In the past year, have you b een afraid of your partner or ex-partner? Yes PRAPARE Score: 6 Problems Problem Type SNOMED Code ICD Code Onset Dates Problem Status W/U Status Risk Notes Problem Depression (326526753) Depression (F32.9) Active confirmed Problem Attention deficit hyperactivity disorder (660825296) ADHD (attention deficit hyperactivity disorder), combined type (F90.2) Active confirmed Problem Anxiety (83941194) Anxiety (F41.9) Active confirmed Problem Alcohol consumption binge drinking (F10.10) Active confirmed Encounters Encounter Location Date Provider Diagnosis [address] [address] 12/12/2023 Jerry Torres Depression F32.9 ; Anxiety F41.9 and ADHD (attention deficit hyperactivity disorder), combined type F90.[address] [address] 03/27/2024 Jerry Torres Depression F32.9 ; Anxiety F41.9 and ADHD (attention deficit hyperactivity disorder), combined type F90.[address] [address] 11/13/2024 Jerry Torres ADHD (attention deficit hyperactivity disorder), combined type F90.2 ; Depression F32.9 ; Anxiety F41.9 and Alcohol consumption binge drinking F10.10 [facility] [address] [place] [address] 03/21/2024 Caryl Randhawa [facility] [address] [place] [address] 03/22/2024 Jerry Torres [address] [place] [address] 05/04/2024 Jerry Torres [address] [place] [address] 09/26/2024 Jerry Torres Assessments Encounter Date Diagnosis (ICD Code) Assessment Notes Treatment Notes Treatment Clinical Notes Section Notes 12/12/2023 Depression (ICD-10 - F32.9) 11/13/2024 Depression (ICD-10 - F32.9) Client is agreeable to restarting treatment plan. Discussed trial of naltrexone in Jain fashion of administration to aide with limiting binge drinking. Client is agreeable to trial after discussing risk versus benefit. 11/13/2024 ADHD (attention deficit hyperactivity disorder), combined type (ICD-10 - F90.2) Client is agreeable to restarting treatment plan. Discussed trial of naltrexone in Jain fashion of administration to aide with limiting binge drinking. Client is agreeable to trial after discussing risk versus benefit. 03/27/2024 Depression (ICD-10 - F32.9) Despite recent stressors, client doing well. No treatment plan changes needed. 12/12/2023 Anxiety (ICD-10 - F41.9) 03/27/2024 Anxiety (ICD-10 - F41.9) Despite recent stressors, client doing well. No treatment plan changes needed. 11/13/2024 Anxiety (ICD-10 - F41.9) Client is agreeable to restarting treatment plan. Discussed trial of naltrexone in Jain fashion of administration to aide with limiting binge drinking. Client is agreeable to trial after discussing risk versus benefit. 12/12/2023 ADHD (attention deficit hyperactivity disorder), combined type (ICD-10 - F90.2) 11/13/2024 Alcohol consumption binge drinking (ICD-10 - F10.10) Client is agreeable to restarting treatment plan. Discussed trial of naltrexone in Jain fashion of administration to aide with limiting binge drinking. Client is agreeable to trial after discussing risk versus benefit. 03/27/2024 ADHD (attention deficit hyperactivity disorder), combined type (ICD-10 - F90.2) Despite recent stressors, client doing well. No treatment plan changes needed. 12/12/2023 Other Discussed sleep hygiene and caffeine intake with encouragement to limit electronic devices an hour before bed and to limit caffeine after 3:00pm. Exercise benefits for mood and health discussed. Psychoeducation regarding psychiatric illness provided. Client was educated about risks and benefits of medication, alternatives to medication, off label uses of medication, suicidal ideation with SSRIs, self-administrat ion and compliance with medication along with how to safely store medication. Verbal informed consent obtained. Client agrees to return sooner if symptoms worsen or if suicidal or homicidal ideations occur. Client has the phone number to the 24-hour crisis line at [facility]. Questions addressed. Client verbalized understanding of all information and is agreeable to treatment plan. 03/27/2024 Other Discussed sleep hygiene and caffeine intake with encouragement to limit electronic devices an hour before bed and to limit caffeine after 3:00pm. Exercise benefits for mood and health discussed. Psychoeducation regarding psychiatric illness provided. Client was educated about risks and benefits of medication, alternatives to medication, off label uses of medication, suicidal ideation with SSRIs, self-administrat ion and compliance with medication along with how to safely store medication. Verbal informed consent obtained. Client agrees to return sooner if symptoms worsen or if suicidal or homicidal ideations occur. Client has the phone number to the 24-hour crisis line at [facility]. Questions addressed. Client verbalized understanding of all information and is agreeable to treatment plan. Despite recent stressors, client doing well. No treatment plan changes needed. 11/13/2024 Other Discussed sleep hygiene and caffeine intake with encouragement to limit electronic devices an hour before bed and to limit caffeine after 3:00pm. Exercise benefits for mood and health discussed. Psychoeducation regarding psychiatric illness provided. Client was educated about risks and benefits of medication, alternatives to medication, off label uses of medication, suicidal ideation with SSRIs, self-administrat ion and compliance with medication along with how to safely store medication. Verbal informed consent obtained. Client agrees to return sooner if symptoms worsen or if suicidal or homicidal ideations occur. Client has the phone number to the 24-hour crisis line at [facility]. Questions addressed. Client verbalized understanding of all information and is agreeable to treatment plan. Client is agreeable to restarting treatment plan. Discussed trial of naltrexone in [place] fashion of administration to aide with limiting binge drinking. Client is agreeable to trial after discussing risk versus benefit. Plan Of Treatment No Information Insurance Providers Payer Name Payer Address Payer Phone Subscriber Number Group Number Insured Name Patient Relationship to Insured Coverage Start Date Coverage End Date [email or web address] [facility] Attn Claims Department [address] [place] [address] [phone] [id number] Jacinta Rodrigues Self - patient is the insured 2 [employer] Att[employer] Claims Department [address] [place] [address] [phone] [id number] Jacinta Rodrigues Self - patient is the insured 2 Medical (General) History Medical History History ICD Code vocal cord disorder migraines (not currently taking meds for this) Surgical History Surgery Date(Month/Year) dilatation and curettage 2019 c section 2020 Hospitalization History Reason Date(Month/Year)
--- OUTSIDE RECORDS SUMMARY | 2024-11-18 18:21 | XMS_ITS ---
Author Organization Unknown Plan of Treatment Description Planned Activity Planned Timing [facility] is a provider organization who partners directly with Health Plans and provides integrated primary care, behavioral health, and web content & social media manager for an attributed population Letter encounter to patientTelephone encounter Nov 01, 2024Jul 2024 Patient Care team information Name Category Status Period Participants - - Proposed period not known -
--- NOTE | 2024-11-18 18:22 | ED.SKABFB ---
HPI - Skin/Abscess/Foreign Bdy General Chief complaint: Skin/Abscess/Foreign Body Stated complaint: Insect Bite Om Lt Arm Time Seen by Provider: 11/18/24 18:28 Source: patient and RN notes reviewed Mode of arrival: ambulatory Limitations: dementia History of Present Illness HPI narrative: 29-year-old female presents with concern for insect bite to her left forearm. She reports she was stung on Tuesday. She reports the area has gotten larger, more red and is getting warm. She reports she had fatigue and mild nausea today. Denies any drainage from the area. She has been putting ice on it. MD complaint: other (Redness) Related Data Home Medications ?Medication ?Instructions ?Recorded ?Confirmed ?Last Taken ?Type atomoxetine 40 mg capsule 60 mg PO DAILY 03/22/23 11/18/24 Unknown History (Strattera) propranolol 10 mg tablet 10 mg PO PRN PRN Anxiety 03/25/23 11/18/24 Unknown History doxepin 50 mg capsule 50 mg PO HS 02/15/24 11/18/24 Unknown History naltrexone 50 mg tablet mg 11/18/24 Unknown History Allergies Allergy/AdvReac Type Severity Reaction Status Date / Time amoxicillin Allergy Severe Swelling Verified 11/18/24 18:21 of Lip/Tongue/Throat adhesive tape AdvReac Mild Rash Verified 11/18/24 18:21 silver AdvReac Mild Rash Verified 11/18/24 18:21 Review of Systems Review of Systems: CONSTITUTIONAL: Denies malaise, chills, sweats, or fever. EYES: Denies redness, or discharge. ENT: Denies rhinorrhea, congestion, swollen lips, swollen tongue CARDIOVASCULAR: Denies chest pain, palpitations, or edema. RESPIRATORY: Denies cough or dyspnea. GASTROINTESTINAL: Denies abdominal pain, nausea, vomiting SKIN: Reports redness, swelling, tenderness to the left forearm. Denies purulent drainage, vesicles, bullae, numbness, pain beyond proportion MUSCULOSKELETAL: Denies joint pain or myalgia. NEUROLOGIC: Denies headache. 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 Encounter for screening examination for sexually transmitted disease KWADWO (obstructive sleep apnea) Initiation of Depo Provera Encounter for screening examination for sexually transmitted disease Surveillance for Depo-Provera contraception Missed (08/30/19) Morbid obesity with BMI of 40.0-44.9, adult Depression Anxiety Eczema Hypercholesterolemia Migraine HTN (hypertension) Surgical History Surgical History History of tonsillectomy (04/05/23) History of dilation and curettage 08/30/19 suction d&c History of section 10/14/16 primary c/s--arrest of dilation Forrest maternal pp hypertension 10/14/20 rpt c/s Cheryl Family History Family History Mother Anxiety Depression Bipolar 1 disorder Hypertension Migraines Father Diabetes mellitus Acute myocardial infarction, Onset Age: 49 Kidney failure Heart disease Social History Social History (Updated 11/13/24 @ 14:58 by MICHAEL Ortiz) Smoking status: Current every day smoker Tobacco type: cigarettes and e-cigarettes/vaping Second hand tobacco smoke exposure: Yes Additional smoking assessment comments: RARE CIGARETTE SMOKING, MOSTLY VAPING Alcohol intake: current Alcohol use details: occasional 2-4 times a month Substance use: former Substance use type: marijuana Other substance usage details: 5-7 times a year Do You Feel Safe in your Home?: Yes Lack of Transportation: No Lack of Food: Never True Current Housing: I Do Not Have Housing Concerned About Future Housing: No Difficulty Paying Gas/Electric Bills: YES Difficulty Paying for Meds: No Currently Unemployed: No Education: High School Diploma/GED Difficulty w/ Childcare or Family Care: No Living arrangements: with family Additional living arrangements comments: Occupation/Education: occupation 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 There is no relevant family history pertinent to the presenting complaint Exam Narrative: GENERAL: Well-appearing, well-nourished, and in no acute distress. HEAD: Normocephalic, atraumatic. EYES: PERRLA, conjunctivae clear ENT: Mucous membranes moist. NECK: Supple. No lymphadenopathy CHEST: Clear to auscultation. No respiratory distress. HEART: Regular rate and rhythm. SKIN: Warm, dry. 6 cm Erythema, induration, tenderness, warmth with sharp margins surrounded by a an additional 6 cm of erythema without induration noted to the right forearm without fluctuation or drainage. No vesicles, bullae, necrosis, ecchymosis, crepitus noted. NEURO: Alert and oriented x3. PSYCH: Normal mood and affect Course Course Emergency Course: Patient is aware of diagnosis, understands and agrees to treatment plan. Anticipatory guidance given. Patient agrees to follow-up as directed and is aware of reasons to seek care at the emergency department. Portions of this record may have been created with voice recognition software Level of Care: Express Care Visit Vital Signs Vital signs: Reviewed. MDM - Skin/Abscess/Foreign Bdy MDM Narrative Medical decision making narrative: I evaluated this in the express care. History is obtained from patient who is an independent historian and physical exam was performed.? Available medical records were reviewed. ? Exam findings and relevant testing show no acute concerns or changes; patient is non-toxic appearing and is in no distress. Does not appear at this time to be erythema multiforme, bullous, SJS, TEN; no evidence at this time to suggest RMSF, NSTI, endocarditis or Lyme disease; patient looks well, nontoxic and is tolerating oral intake; no neurologic signs or symptoms; no headache, photophobia or neck pain; afebrile.? Patient does not have history of of penetrating trauma, laceration, blunt trauma, recent surgery, immunosuppression, malignancy, obesity, alcoholism, corticosteroid use.? Discussed the importance of follow-up, patient agrees; question, cellulitis versus necrotizing soft tissue infection versus abscess.?? Patient is appropriate for outpatient treatment and follow-up. Critical Care Time Critical Care Time Critical Care Time: No Discharge Plan Discharge Clinical Impression: Infected insect bite Patient Disposition: Home Condition: Stable Instructions: Antibiotic Form, Cellulitis (ED) Additional Instructions: Please follow up with your Primary Care Doctor within 48-72 hours - call for an appointment. Rest and elevate affected area; apply moist heat 3-4 times daily for 10-15 minutes. Take Motrin 600mg every 8 hours with food for pain. Please take Antibiotics as directed. Use hydrocortisone cream for itchiness. If you experience any worsening redness, swelling, streaking (red lines), fever or chills please go to the ER Patient Language: Jamaican Prescriptions: New sulfamethoxazole-trimethoprim 800-160 mg tablet 1 tablet PO Q12H 7 Days Qty: 14 0RF hydrocortisone 1 % cream 1 applic topical QID PRN (Reason: itching) Qty: 28.35 0RF No Action naltrexone 50 mg tablet atomoxetine [Strattera] 40 mg capsule 60 mg PO DAILY doxepin 50 mg capsule 50 mg PO HS cetirizine 10 mg tablet 10 mg PO HS Qty: 30 0RF medroxyprogesterone [Depo-Provera] 150 mg/mL syringe 150 mg IM [id number] Qty: 1 3RF propranolol 10 mg tablet 10 mg PO PRN PRN (Reason: Anxiety) Follow-up/Referrals: Raquel,MARY Bertrand [Primary Care Provider] - Time of Disposition: 18:38
--- OUTSIDE RECORDS SUMMARY | 2024-11-18 18:22 | XMS_ITS | Data Portability ---
Author Organization [facility] Chaitanya Address [address] [place] [address] Care Team Providers Care Scaler Name Role Phone LOURDES OWENS Primary Care Provider [phone] Assessment No assessment recorded. Plan of Treatment Reminders Order Date Submit Date Provider Last Modified By Organization Details Last Modified Time Details Appointments ANNUAL 30 2024 01:30P MARY BETTS Not available Not available Not available Lab cytology report, smear or scraping, cervical or vaginal 2023 024 KELLY LABCORINNE, [address], [address], [place], [address], 02/06/2024 13:10:18 bacterial vaginosis score, LILLIE+probe , vaginal fluid (OBS) 2023 024 KELLY WALTERS, [address], [address], [place], [address], 02/05/2024 15:08:34 Mycobacte rium tuberculo sis stimulate d gamma interfero n, qual, blood 2023 024 KELLY WALTERS, [address], [address], [place], [place], [address], 10/29/2023 20:08:18 CBC w/ auto diff 2023 024 KELLY WALTERS, [facility] [address], [address], [place], [address], 10/27/2023 22:07:52 CMP, serum or plasma 2023 024 [facility], [address] [address], [address], [place], [address], 10/27/2023 22:07:51 lipid panel, serum 2023 024 [facility], [address] [place], [place] [address]bernadine Mario [address], [address], [place], [address], 10/27/2023 22:07:51 HbA1c (hemoglob in A1c), blood 2023 024 [facility], [address] [place], [place] [address]bernadine [address], [address], [place], [address], 10/28/2023 09:20:54 TSH + free T4, serum 2023 024 [facility], [address] [place] [address], [address], [place], [address], 10/28/2023 09:20:53 rapid strep group A, throat 2022 023 [email or web address] In-Office Order, Internal Use Only DO Not Attach Compendium DO Not Attach Compendium, Do Not Delete/merge, [id number] 01/26/2023 16:41:23 Referral otolaryng ologist referral 2022 023 jessica Epstein MD, [address] [facility], [address] [place] [address], [place], [address], 02/10/2023 10:13:14 Procedures None recorded. Surgeries None recorded. Imaging US, spleen 2023 024 [facility] (Imaging), [address] [address], [place], [address], 01/19/2024 16:37:39 US, breast, unilatera l - Breast mass palpated at 6oclock outer breast . [address] ([facility]), [address], [place], [address], 10/18/2022 12:18:53 Medication Orders nystatin 100,000 unit/gram topical powder 2023 024 [id number], [address], [place], [place], [id number], 02/01/2024 10:11:44 mupirocin 2 % topical ointment 2022 023 [facility][id number], [address] , [place], [place], [id number], 02/01/2024 09:45:13 Patient TargetsNo targets recorded. 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 r Recurrent acute streptococcal tonsillitis Referring Physician: Lourdes Owens, Waiter/Waitress Bar, Encounter Date: 01/26/2023 Results Created Date Observation Date Name Description Value Unit Range Abnormal Flag Note LastModifiedBy Organization Detail LastModifiedTime 01/27/2001/26/2023 rapid strep group A, throa t Strep negati ve Not Available In-Office Order Internal Use Only DO Not Attach Compendium DO Not Attach Compendium, Do Not Delete/merge, [id number] 01/26/2023 16:41:15 10/27/19 24 10/27/2023 LIPID PANEL cholesterol, total 189 mg/dL 100-19 9 Not Available [facility] [address] [place], [address], 10/27/2023 22:07:51 10/27/19 24 10/27/2023 LIPID PANEL triglyceride s 211 mg/dL 0-149 above high normal Not Available [facility] [address] [place] [address], [address], 10/27/2023 22:07:51 10/27/19 24 10/27/2023 LIPID PANEL HDL cholesterol 36 mg/dL 40-999 below low normal Not Available [facility] [address] [place] [address], [address], 10/27/2023 22:07:51 10/27/19 24 10/27/2023 LIPID PANEL VLDL cholesterol chiara 42 mg/dL 5-40 above high normal Not Available [facility] [address] [place] [address], [address], 10/27/2023 22:07:51 10/27/19 24 10/27/2023 LIPID PANEL LDL chol calc (nih) 140 mg/dL 0-99 above high normal Not Available [facility] [address] [place] [address], [address], 10/27/2023 22:07:51 10/27/19 24 10/27/2023 COMP. METAB OLIC PANEL (14) glucose 111 mg/dL 70-99 above high normal Not Available [facility] [address] [place], [address], 10/27/2023 22:07:51 10/27/19 24 10/27/2023 COMP. METAB OLIC PANEL (14) BUN 12 mg/dL 6-20 Not Available [facility] [address] [place] [address], [address], 10/27/2023 22:07:51 10/27/19 24 10/27/2023 COMP. METAB OLIC PANEL (14) creatinine 0.58 mg/dL 0.76-1 .27 below low normal Not Available [facility] [address] [place] [address], [address], 10/27/2023 22:07:51 10/27/19 24 10/27/2023 COMP. METAB OLIC PANEL (14) eGFR 126 >=60 Units for eGFR value s are mL/mi n/1.7 3 The eGFR Calcu latio n has not been valid ated for patie nts under the age of 18. If test resul ts are displ ayed for a patie nt under the age of 18, disre zena that value . Not Available [facility] [address] [place] [address], [address], 10/27/2023 22:07:51 10/27/19 24 10/27/2023 COMP. METAB OLIC PANEL (14) BUN/creatini ne ratio 21 9-23 Not Available [facility] Department [address] [place] [address], [address], 10/27/2023 22:07:51 10/27/19 24 10/27/2023 COMP. METAB OLIC PANEL (14) sodium 142 mmol/ L 134-14 4 Not Available [facility] [address] [place] [address], [address], 10/27/2023 22:07:51 10/27/19 24 10/27/2023 COMP. METAB OLIC PANEL (14) potassium 3.8 mmol/ L 3.5-5. 2 Not Available [facility] [address] [place] [address], [address], 10/27/2023 22:07:51 10/27/19 24 10/27/2023 COMP. METAB OLIC PANEL (14) chloride 104 mmol/ L 96-106 Not Available [facility] [address] [place] [address], [address], 10/27/2023 22:07:51 10/27/19 24 10/27/2023 COMP. METAB OLIC PANEL (14) carbon dioxide, total 22 mmol/ L 20-29 Not Available [facility] [address] [place] [address], [address], 10/27/2023 22:07:51 10/27/19 24 10/27/2023 COMP. METAB OLIC PANEL (14) calcium 9.8 mg/dL 8.7-10 .2 Not Available [facility] [address] [place], [address], 10/27/2023 22:07:51 10/27/19 24 10/27/2023 COMP. METAB OLIC PANEL (14) protein, total 7.0 g/dL 6.0-8. 5 Not Available [facility] [address] [place], [address], 10/27/2023 22:07:51 10/27/19 24 10/27/2023 COMP. METAB OLIC PANEL (14) albumin 4.3 g/dL 4.0-5. 0 Not Available [facility] [address] [place], [address], 10/27/2023 22:07:51 10/27/19 24 10/27/2023 COMP. METAB OLIC PANEL (14) globulin, total 2.7 g/dL 1.5-4. 5 Not Available [facility] [address] [place], [address], 10/27/2023 22:07:51 10/27/19 24 10/27/2023 COMP. METAB OLIC PANEL (14) A/G ratio 2.0 1.2-2. 2 Not Available [facility] [address] [place], [address], 10/27/2023 22:07:51 10/27/19 24 10/27/2023 COMP. METAB OLIC PANEL (14) bilirubin, total 0.4 mg/dL 0.0-1. 2 Not Available [facility] [address] [place], [address], 10/27/2023 22:07:51 10/27/19 24 10/27/2023 COMP. METAB OLIC PANEL (14) alkaline phosphatase 86 IU/L 44-121 Not Available [facility] Department [address] [place], [address], 10/27/2023 22:07:51 10/27/19 24 10/27/2023 COMP. METAB OLIC PANEL (14) AST (SGOT) 15 IU/L 0-40 Not Available [facility] Department [address] [place], [address], 10/27/2023 22:07:51 10/27/19 24 10/27/2023 COMP. METAB OLIC PANEL (14) ALT (SGPT) 15 IU/L 0-32 Not Available [facility] Department [address] [place], [address], 10/27/2023 22:07:51 10/27/19 24 10/27/2023 CBC WITH DIFFE RENTI AL/PL ATELE T WBC 9.9 x10e3 /uL 3.4-10 .8 Not Available [facility] [address] [place], [address], 10/27/2023 22:07:52 10/27/19 24 10/27/2023 CBC WITH DIFFE RENTI AL/PL ATELE T RBC 4.80 x10e6 /uL 3.77-5 .28 Not Available [facility] [address] [place], [address], 10/27/2023 22:07:52 10/27/19 24 10/27/2023 CBC WITH DIFFE RENTI AL/PL ATELE T hemoglobin 13.9 g/dL 11.1-1 5.9 Not Available [facility] [address] [place], [address], 10/27/2023 22:07:52 10/27/19 24 10/27/2023 CBC WITH DIFFE RENTI AL/PL ATELE T hematocrit 43.2 % 34.0-4 6.6 Not Available [facility] [address] [place], [address], 10/27/2023 22:07:52 10/27/19 24 10/27/2023 CBC WITH DIFFE RENTI AL/PL ATELE T MCV 90 fL 79-97 Not Available [facility] [address] [place], [address], 10/27/2023 22:07:52 10/27/19 24 10/27/2023 CBC WITH DIFFE RENTI AL/PL ATELE T MCH 29.0 pg 26.6-3 3.0 Not Available [facility] [address] [place], [address], 10/27/2023 22:07:52 10/27/19 24 10/27/2023 CBC WITH DIFFE RENTI AL/PL ATELE T MCHC 32.2 g/dL 31.5-3 5.7 Not Available [facility] [address] [place], [address], 10/27/2023 22:07:52 10/27/19 24 10/27/2023 CBC WITH DIFFE RENTI AL/PL ATELE T RDW 13.1 % 11.5-1 4.5 Not Available [facility] [address] [place], [address], 10/27/2023 22:07:52 10/27/19 24 10/27/2023 CBC WITH DIFFE RENTI AL/PL ATELE T platelets 288 x10e3 /uL 150-45 0 Not Available [facility] [address] [place], [address], 10/27/2023 22:07:52 10/27/19 24 10/27/2023 CBC WITH DIFFE RENTI AL/PL ATELE T neutrophils 63 % notest b. Not Available [facility] [address] [place], [address], 10/27/2023 22:07:52 10/27/19 24 10/27/2023 CBC WITH DIFFE RENTI AL/PL ATELE T lymphs 30 % notest b. Not Available [facility] [address] [place] [address], [address], 10/27/2023 22:07:52 10/27/19 24 10/27/2023 CBC WITH DIFFE RENTI AL/PL ATELE T monocytes 5 % notest b. Not Available [facility] [address] [place] [address], [address], 10/27/2023 22:07:52 10/27/19 24 10/27/2023 CBC WITH DIFFE RENTI AL/PL ATELE T eos 2 % notest b. Not Available [facility] [address] [place] [address], [address], 10/27/2023 22:07:52 10/27/19 24 10/27/2023 CBC WITH DIFFE RENTI AL/PL ATELE T basos 1 % notest b. Not Available [facility] [address] [place] [address], [address], 10/27/2023 22:07:52 10/27/19 24 10/27/2023 CBC WITH DIFFE RENTI AL/PL ATELE T neutrophils (absolute) 6.2 x10e3 /uL 1.4-7. 0 Not Available [facility] [address] [place] [address], [address], 10/27/2023 22:07:52 10/27/19 24 10/27/2023 CBC WITH DIFFE RENTI AL/PL ATELE T lymphs (absolute) 2.9 x10e3 /uL 0.7-3. 1 Not Available [facility] [address] [place], [address], 10/27/2023 22:07:52 10/27/19 24 10/27/2023 CBC WITH DIFFE RENTI AL/PL ATELE T monocytes(ab solute) 0.5 x10e3 /uL 0.1-0. 9 Not Available [facility] [address] [place], [address], 10/27/2023 22:07:52 10/27/19 24 10/27/2023 CBC WITH DIFFE RENTI AL/PL ATELE T eos (absolute) 0.2 x10e3 /uL 0.0-0. 4 Not Available [facility] [address] [place], [address], 10/27/2023 22:07:52 10/27/19 24 10/27/2023 CBC WITH DIFFE RENTI AL/PL ATELE T baso (absolute) 0.1 x10e3 /uL 0.0-0. 2 Not Available [facility] [address] [place], [address], 10/27/2023 22:07:52 10/27/19 24 10/27/2023 CBC WITH DIFFE RENTI AL/PL ATELE T immature granulocytes 1.1 % notest b. Not Available [facility] [address] [place], [address], 10/27/2023 22:07:52 10/27/19 24 10/27/2023 CBC WITH DIFFE RENTI AL/PL ATELE T immature grans (abs) 0.1 x10e3 /uL 0.0-0. 1 Not Available [facility] [address] [place], [address], 10/27/2023 22:07:52 10/27/19 24 10/27/2023 CBC WITH DIFFE RENTI AL/PL ATELE T NRBC 0 % 0-0 Not Available [facility] [address] [place], [address], 10/27/2023 22:07:52 10/27/19 24 10/28/2023 TSH+F REE T4 TSH 1.420 uIU/m L 0.450- 4.500 Not Available [facility] ([facility]) [address] [facility], [place], [address], 10/28/2023 09:20:53 10/27/19 24 10/28/2023 TSH+F REE T4 T4,free(dire ct) 1.00 NG/dL 0.82-1 .77 Not Available [facility] ([facility]) [address] [facility] [place], [address], 10/28/2023 09:20:53 10/27/19 24 10/28/2023 HEMOG LOBIN A1C hemoglobin A1C 5.6 % 4.8-5. 6 Predi abete s: 5.7 - 6.4 Diabe dav: >6.4 Glyce chey[place] contr ol for adult s with diabe dav: <7.0 Not Available [facility] ([facility]) [address] [place], [address], 10/28/2023 09:20:53 10/27/19 24 10/28/2023 QUANT IFERO N-TB GOLD PLUS quantiferon incubation INCUBA TION PERFOR MED. Not Available [facility] ([facility]) [address] [facility], [place], [address], 10/29/2023 20:08:18 10/27/19 24 10/28/2023 QUANT IFERO [...] ol for the test. Not Available [facility] ([facility]) [address] [place], [address], 10/29/2023 20:08:18 10/27/19 24 10/29/2023 QUANT IFERO N-TB GOLD PLUS quantiferon- TB gold plus NEGATI VE negati ve No respo nse to M tuber juanos is antig ens detec juan. Infec tion with M tuber juanos is is unlik kymberly, but high risk indiv idual s shoul d be consi dered for addit ional testi ng (ATS/ IDSA/ CDC Clini chiara Pract ice Guide lines , 2017) . The refer ence range is an Antig en minus Nil resul t of <0.35 IU/mL . Chemi lumin escen ce immun oassa y metho dolog y Not Available [facility] ([facility]) [address] [place], [address], 10/29/2023 20:08:18 10/27/19 24 10/29/2023 QUANT IFERO N-TB GOLD PLUS quantiferon TB1 Ag value 0.07 IU/mL Not Available [facility] ([facility]) [address] [place], [address], 10/29/2023 20:08:18 10/27/19 24 10/29/2023 QUANT IFERO N-TB GOLD PLUS quantiferon TB2 Ag value 0.06 IU/mL Not Available [facility] ([facility]) [address] [place], [address], 10/29/2023 20:08:18 10/27/19 24 10/29/2023 QUANT IFERO N-TB GOLD PLUS quantiferon nil value 0.02 IU/mL Not Available [facility] ([facility]) [address] [place], [address], 10/29/2023 20:08:18 10/27/19 24 10/29/2023 QUANT IFERO N-TB GOLD PLUS quantiferon mitogen value >10.00 IU/mL Not Available [facility] ([facility]) [address] [place], [address], 10/29/2023 20:08:18 02/01/20 24 02/04/2024 NUSWA B VG+, HSV trich vag by LILLIE NEGATI VE negati ve Not Available [facility] ([facility]) [address] [facility], [place], [address], 02/05/2024 15:08:34 02/01/20 24 02/04/2024 NUSWA B VG+, HSV chlamydia trachomatis, LILLIE NEGATI VE negati ve Not Available [facility] ([facility]) [address] [facility], [place], [address], 02/05/2024 15:08:34 02/01/20 24 02/04/2024 NUSWA B VG+, HSV neisseria gonorrhoeae, LILLIE NEGATI VE negati ve Not Available [facility] ([facility]) [address] [place], [address], 02/05/2024 15:08:34 02/01/20 24 02/04/2024 NUSWA B VG+, HSV hsv 1 LILLIE NEGATI VE negati ve Not Available [facility] ([facility]) [address] [place], [address], 02/05/2024 15:08:34 02/01/20 24 02/04/2024 NUSWA B VG+, HSV hsv 2 LILLIE NEGATI VE negati ve Not Available [facility] ([facility]) [address] [place], [address], 02/05/2024 15:08:34 02/01/20 24 02/05/2024 NUSWA B VG+, HSV atopobium vaginae LOW - 0 score Not Available [facility] ([facility]) [address] [place], [address], 02/05/2024 15:08:34 02/01/20 24 02/05/2024 NUSWA B VG+, HSV bvab 2 LOW - 0 score Not Available [facility] ([facility]) [address] [facility], [place], [address], 02/05/2024 15:08:34 02/01/20 24 02/05/2024 NUSWA B [...] prese nce of BV. Not Available [facility] ([facility]) [address] [facility], [place], [address], 02/05/2024 15:08:34 02/01/20 24 02/05/2024 NUA B VG+, HSV serena albicans, LILLIE NEGATI VE negati ve Not Available [facility] ([facility]) [address] [facility], [place], [address], 02/05/2024 15:08:34 02/01/20 24 02/05/2024 NUA B VG+, HSV serena glabrata, LILLIE NEGATI VE negati ve Not Available [facility] ([facility]) [address] [facility], [place], [address], 02/05/2024 15:08:34 02/01/20 24 02/06/2024 PAP IG (IMAG E GUIDE D) diagnosis: COMMEN T NEGAT ALVERTO FOR INTRA EPITH ELIAL LESIO N OR MALIG BETO . Not Available [facility] ([facility]) [address] [facility], [place], [address], 02/06/2024 13:10:18 02/01/20 24 02/06/2024 PAP IG (IMAG E GUIDE D) specimen adequacy: COMMEN T Satis facto ry for evalu ation . No endoc ervic al compo nent is ident ified . Not Available [facility] ([facility]) [address] [place], [address], 02/06/2024 13:10:18 02/01/20 24 02/06/2024 PAP IG (IMAG E GUIDE D) clinician provided ICD10: VAL Stein Z12.4 Not Available [facility] ([facility]) [address] [facility], [place], [address], 02/06/2024 13:10:18 02/01/20 24 02/06/2024 PAP IG (IMAG E GUIDE D) performed by: VAL [email or web address], Tomy stein (ASCP ) Not Available [facility] ([facility]) [address] [facility], [place], [address], 02/06/2024 13:10:18 02/01/20 24 02/06/2024 PAP IG (IMAG E GUIDE D) . . Not Available [facility] ([facility]) [address] [facility], [place], [address], 02/06/2024 13:10:18 02/01/20 24 02/06/2024 PAP IG (IMAG E GUIDE D) note: VAL Stein The Pap smear is a scree jeancarlos test desig kassidy to aid in the detec tion of darlign ligna nt and malig nant condi tions of the uteri ne cervi x. It is not a diagn ostic proce dure and shoul d not be used as the sole means of detec ting cervi chiara cance r. Both false -posi tive and false -nega tive repor ts do occur . Not Available [facility] ([facility]) [address] [facility], [place], [address], 02/06/2024 13:10:18 02/01/20 24 02/06/2024 PAP IG (IMAG E GUIDE D) test methodology: COMMEN T This liqui d based ThinP rep(R ) pap test was kaiden yi with the use of an image guide narendra lazo Not Available [facility] ([facility]) [address] [facility], [place], [address], 02/06/2024 13:10:18 10/22/19 23 10/21/2022 imagi ng/di agnos tic resul t No observ ation record ed. [address] [facility], [place], [address], 10/26/2022 19:28:14 10/22/19 23 10/21/2022 imagi ng/di agnos tic resul t No observ ation record ed. [address] [address], [place], [address], 10/21/2022 20:58:29 07/05/19 24 07/05/2023 lab* No observ ation record ed. [address] [address], [place], [address], 07/06/2023 07:46:49 11/16/19 24 11/16/2023 XR, chest , 2 view No observ ation record ed. [address] [address], [place], [address], 11/16/2023 13:33:14 11/16/19 24 11/16/2023 CT, abdom en + pelvi s, w/ contr ast No observ ation record ed. [email or web address] [address], [place], [address], 11/23/2023 07:55:11 11/16/19 24 11/16/2023 US, abdom en, limit ed No observ ation record ed. [address] [address], [place], [address], 11/16/2023 13:46:04 01/04/20 24 01/04/2024 US, abdom en, compl ete No observ ation record ed. [facility] [address], [place], [address], 01/04/2024 13:48:56 01/04/20 24 01/04/2024 US, abdom en, compl ete No observ ation record ed. [facility] [address] [facility] [address], [place], [address], 01/05/2024 10:11:34 05/06/20 24 05/06/2024 XR, chest , 2 view No observ ation record ed. [address] [facility] [facility] [address], [place], [address], 05/07/2024 08:28:50 Result Notes None recorded. Problems Name Problem SNOMED Code Status Onset Date Resolution Date Notes Provider Name and Address Organization Details Recorded Time Migraine 53680198 Active 2020 Reyna Branham MA null, [place] - [place] 1 15:29:41 Obesity 818165357 Active 2021 MARY SKINNER Attn: Accountin g,[address] [facility], [place], [address], [facility] - [facility] 2 10:03:13 Plantar fasciitis 716976981 Active 2021 MARY SKINNER Attn: Accountin g,[address] [facility], [place], [address], [facility] - [facility] 2 10:05:45 Mass of right breast 37516248174180 106 Active 2022 MARY SKINNER Attn: Accountin g,[address] [facility], [place], [address], [facility] - [facility] 3 14:32:20 Problem Notes None recorded. Procedures Surgical History Date Name Laterality Status Provider Name and Address Organization Details Recorded Time 02/06/2021 Date of Last Pap Smear completed Reyna Branham MA [place] - [place] 03/12/2021 15:32:34 Imaging Results None recorded. Procedure Notes None recorded. Medical Equipment None Reported. Allergies Allergen ID Allergen Name Allergen Category Reaction Reaction Severity Criticality Documentation Date Start Date Code Code System Note Provider Name and Address Organization Details Recorded Time 104852 adhesive tape environme nt,medica tion Not available Not available Not available 03/12/2021 10823 UNK Reyna Branham MA [facility], [place] - SI 1 15:28:04 [id number] amoxicill in medicatio n Not available Not available Not available 03/12/2021 723 RxNorm itchy tongu e and hives in arms MARY SKINNER Attn: Ledy banerjee,[address] [facility], [place], [address], [facility] - SI 3 10:38:41 Medications Name Sig [...] Not Available Not Available No t Available Wellbutrin XL 150 mg 24 hr tablet, extended release Take 1 tablet every day by oral route for 30 days. 04/13 completed Not Available Not Available Not Available nitrofurant oin monohydrate /macrocryst als 100 mg capsule 03/12 completed Not Available Not Available Not Available cephalexin 750 mg capsule TAKE 1 CAPSULE BY MOUTH TWICE DAILY FOR 7 DAYS 03/12 completed Not Available Not Available Not Available Estarylla 0.25 mg-0.035 mg tablet TAKE 1 TABLET BY MOUTH EVERY DAY 05/13 completed Not Available Not Available Not Available BinaxNOW COVID-19 Ag Self Test kit TEST DIRECTED TODAY 01/31 completed Not Available Not Available Not Available Vitals Date Recorded Body height Body mass index (BMI) Body weight Heart rate Oxygen saturation Oxygen saturation in Arterial blood by Pulse oximetry Systolic And Diastolic Provider Name and Address Organization Details Last Updated DateTime 3 152.4 cm 36.1 kg/m2 30683.5 9 g 101 /min 98 % 98 % 110/64 mm[Hg] Reyna Branham MA [facility] 3 11:27:23 Date Recorded Body height Body mass index (BMI) Body weight Heart rate Oxygen saturation Oxygen saturation in Arterial blood by Pulse oximetry Systolic And Diastolic Provider Name and Address Organization Details Last Updated DateTime 4 152.4 cm 36.3 kg/m2 21448.1 8 g 93 /min 99 % 99 % 103/71 mm[Hg] Reyna Branham MA [facility] 4 15:00:07 Date Recorded Body height Body mass index (BMI) Body weight Heart rate Oxygen saturation Oxygen saturation in Arterial blood by Pulse oximetry Systolic And Diastolic Provider Name and Address Organization Details Last Updated DateTime 4 152.4 cm 36.9 kg/m2 58847.9 6 g 99 /min 97 % 97 % 120/68 mm[Hg] Reyna Branham MA [facility] 4 10:28:19 Date Recorded Body height Body mass index (BMI) Body weight Systolic And Diastolic Provider Name and Address Organization Details Last Updated DateTime 01/26/2023 152.4 cm 35.9 kg/m2 85706 g 110/64 mm[Hg] Reyna Branham MA [facility] 01/26/2023 10:30:39 Date Recorded Body height Body mass index (BMI) Body weight Oxygen saturation Oxygen saturation in Arterial blood by Pulse oximetry Heart rate Respiratory rate Systolic And Diastolic Provider Name and Address Organization Details Last Updated DateTime 4 152.4 cm 36 kg/m2 36506.7 g 99 % 99 % 97 /min 17 /min 131/85 mm[Hg] Vernell Cleveland MA [facility] 4 09:45:37 Social History Question Answer Notes LastModified by Organizat ion Details LastModified Time Tobacco Smoking Status Current Some Day Smoker stopped smoking, still vaping, Reyna Branham MA null [facility] 08/20/2022 14:39:51 Do You Have An Advance Directive? No Information not available 11/13/2021 In The 14 Days Before Symptom Onset, [...] No Information not available 03/12/2021 Do You Have A Medical Power Of Personal Fitness Manager? No Information not available 11/13/2021 What Was [...] Counseling Provided? 02/01/2024 Information not available 02/01/2024 Sex: Female Functional Status Question Answer Note LastModified by Organizat ion Details LastModified Time Do you use any illicit or recreational drugs? Marijuana Information not available 03/12/2021 Do you or have you ever used any other forms of tobacco or nicotine? Yes Information not available 03/12/2021 What is your level of alcohol consumption? Occasional Information not available 03/12/2021 Do you or have you ever used e-cigarettes or vape? Current user of electronic cigarettes Information not available 03/12/2021 Mental Status None recorded. Family History Relationship Description Onset Age of this Age Resolved Age Notes LastModified by Organization Details LastModified Time Father No current problems or disability Not available 03/12 15:32:52 Father Diabetes mellitus Not available 2020 15:33:09 Mother No current problems or disability Not available 03/12 15:32:52 Unspecified Relation Anxiety Not available 021 15:33:32 Unspecified Relation Depressive disorder Not available 2020 15:33:40 Unspecified Relation Migraine Not available 2020 15:33:56 Medical History Condition Response Coronary Artery Disease N Other N Atrial Fibrillation N High Blood Pressure Y Kidney or Bladder Problems N Thyroid Problems N GI Problems N Depression Y COPD N Blood Clots N Skin Problems N Anemia N Heart Attack (RI) N Anxiety Disorder N Diabetes N Muscle, Joint, or Bone Problems N Seizures/Epilepsy N Acid Reflux (GERD) N Cancer N Stroke N Asthma N Allergies N High Cholesterol N Hepatitis N Liver Disease N Headaches N Heart Failure N Osteoporosis N Gynecological History Statement/Question Response Date of Last Mammogram Flow Moderate Date of LMP Duration of Flow (days) 4 Age at Menarche 12 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 Age at First Child 20 Frequency of Cycle (Q days) 28 Menses Monthly Y Date of Last Pap Smear 02/06/2021 LMP Approximate Obstetrics History GPAL:G 4 P 2 0 0 2 Type Value Full Term 2 Living 2 Total 4 Immunizations Vaccine Type Date Status Note Provider Andrew mccann and Address Organization Details Recorded Time Influenza, split virus, quadrivalent, PF 05/07/2022 completed [facility] [place] [facility] 05/07/2022 15:42:30 Tdap 05/07/2022 completed [place] [place] 05/07/2022 15:39:40 Past Encounters Encounter ID Performer Location Encounter Start Date Encounter Closed Date Diagnosis/Indication Diagnosis SNOMED-CT Code Diagnosis ICD10 Code Diagnosis Note [id number] MARY SKINNER [facility] [address] [place] [address] 03/12/2021 15:13:43 03/13/2021 12:23:29 Adult health examination 486948289 Z00.00 Patient presents to establish. Recently gave . denies depression . Doing well at home with baby. Not breast feeding.- labs-UTD pap smear 2020, normal- vitals WNL- encouraged weight loss via healthy lifestyle Migraine 16544567 G43.90 9 migraines and headaches since age 16. 3-4 ALONSO per week.Occas ional migraines. pain around temples, behind eyes , back of head. migraines do affect her vision. Exedrin help her headaches and sometimes helps with migraines. Has never taken preventati ve medication . we discussed venlafaxin e , tricyclics and topamax today. Cholesterol screening 27 5339474 Z13.220 Obesity 825413032 E66.9 BMI 37.4, not wnl. - normal vitals- she is working on diet at home- encouraged diet and exercise Anxiety 63895428 F41.9 takes hydroxyzin e prn for anxiety. -Patient was educated on his prescribed medication s, rationale for medication s, dosing indication s, adverse reactions, black box warning, dosing indication s, SE (e.g., decreased libido, weight gain, gynecomast ia, and galactorrh ea) and the risks and benefits. -Call center with questions/ concerns. Go to ER or call 911 for crisis (e.g., suicidal behaviors, suicidal ideations, intent or plan emerge). Additional ly, patient has suicide hotline #. - f/u one month - call with questions [id number] MARY SKINNER [facility] [address] [place] [address] 04/13/2021 15:54:45 04/14/2021 10:27:40 Obesity 672337966 E66.9 BMI 38.5, not wnl. - normal vitals- she is working on diet at home- encouraged diet and exercise Dyspnea on exertion 6084 5006 R06.09 dyspnea since she had Covid a few weeks ago. 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 She has to sit and rest after 30-45 minutes. She takes albuterol inhaler which helps but is inhaling every 2-3 hours instead 4-5 hours. Only uses inhaler at work. Due to decline in function and increased albuterol use, will send to pulmonolog y. She denies orthopnea, LE swelling, palpitatio ns. She sleeps on 1-2 pillows. Vitals wnl. On exam lungs are clear, RRR, no murmur or rubs. Possible long haul syndrome. [id number] Roberto Carlos [facility]awla [facility] [address] [place] [address] 05/13/2021 14:30:26 05/14/2021 08:14:12 History of SARS-CoV-2 5664202975 60363507 Z86.16 Dx 1den ies hospitaliz ation Dyspnea on exertion 6084 5006 R06.09 Likely multifacto rial - Recent COVID-19 dx, hx of VCD, and possible OSAMDI teachingCo ntinue albuterol as neededOrde ring PFT, 6min walk ad chest ct w/o contrast Body mass index 30+ - obesity 094973453 Z68.38 Sleep apnea 79662193 G47 .30 Home sleep study , would benefit . Symptomati c and ESS 8 Smokes tobacco daily 449 480593 Z72.0 Smoking cessation discussed Vaping 102188294 Z77.29 cessation discussed [id number] Roberto Carlos [facility] [address] [place] [address] 06/26/2021 15:44:46 07/07/2021 08:32:24 History of SARS-CoV-2 5279242390 29194410 Z86.16 Dx 1den ies hospitaliz ation Dyspnea on exertion 6084 5006 R06.09 Likely multifacto rial - Recent COVID-19 dx, hx of VCD, and possible OSAPFT- no obstructio n/restrict ion , normal diffusion capacity Body mass index 30+ - obesity 988835492 Z68.38 Sleep apnea 85040990 G47 .30 Home sleep study 06/05/21: RDI 6.65/hr, lowest O2 74%Orderin g cpap titration for optimal pressure settingSle ep hygiene discussed Smokes tobacco daily 449 501012 Z72.0 Smoking cessation discussed Vaping 837397319 Z77.29 cessation discussed [id number] MARY SKINNER [facility] [address] [place] [address] 11/11/2021 14:48:32 11/13/2021 09:52:44 Obesity 436484080 E66.9 BMI 39.8, not wnl. - normal vitals- she is working on diet at home- encouraged diet and exercise Depression screening 171 753152 Z13.31 negative Plantar fasciitis 913654 003 M72.2 right foot pain worse after period of rest and after long period of walking. Pain elicited on palpation. - ibuprofen 600mg q 8 hours with food x 2 weeks- freeze water bottle and roll foot- discussed foot stretches in office- stop wearing flipflops and wear good arch support shoes- weight loss encouraged [id number] Roberto Carlos Chawla [facility] [address] [place] [address] 11/13/2021 14:45:53 11/16/2021 12:40:21 Sleep apnea 93723038 G47.30 Home sleep study 06/05/21: RDI 6.65/hr, lowest O2 74%cpap titration at [facility] 08/12/21, pressure setting 7cm H2O Cpap compliance report - 35/37 days worn 34/37 days greater than 4 hours, 91.9% Set pressure of 7 cm H2O AHI: 0.2Avg leak time- 24 minutes benefiting from cpap therapy, has noticed improved sleep Body mass index 30+ - obesity 339105124 Z68.38 Dyspnea on exertion 6084 5006 R06.09 Continued DOEHx of COVID-19Co ntinue ventolin as neededCXR 03/25/[facility]: no acute cardiopulm onary diseaseChe st ct w/o contrast ordered and denied by insurance Smokes tobacco daily 449 567363 Z72.0 Smoking cessation discussed Vaping 287855622 Z77.29 cessation discussed History of SARS-CoV-2 29 89144065 72180287 Z86.16 Dx en ies hospitaliz ationMulti factorial - Hx of COVID-19 dx, hx of VCD, and OSAPFT- no obstructio n/restrict ion , normal diffusion capacity [id number] Pavan Mcclain MD [facility] [address] [place] [address] 12/14/2021 14:54:46 12/15/2021 15:26:05 Chronic tonsillitis 87951764 J35.01 [id number] MARY SKINNER [facility] [address] [facility] [place] [address] 01/04/2022 14:00:53 01/05/2022 15:49:43 Depressive disorder 98076218 F32.A - advised counseling -Patient was educated on his prescribed medication s, rationale for medication s, dosing indication s, adverse reactions, black box warning, dosing indication s, SE (e.g., decreased libido, weight gain, gynecomast ia, and galactorrh ea) and the risks and benefits. -Call center with questions/ concerns. Go to ER or call 911 for crisis (e.g., suicidal behaviors, suicidal ideations, intent or plan emerge). Additional ly, patient has suicide hotline #. - f/u one month - call with questions [id number] MARY SKINNER [facility] [address] [place] [address] 02/05/2022 14:31:41 02/08/2022 15:13:19 Restless legs 68149075 G25.81 r/o anemia Morbid obesity 709420487 E66.01 BMI 40.6 Depressive disorder 3548 9007 F32.A Patient not taking as prescribed . states she is feeling better. will trial w/o medication .-Patient was educated on his prescribed medication s, rationale for medication s, dosing indication s, adverse reactions, black box warning, dosing indication s, SE (e.g., decreased libido, weight gain, gynecomast ia, and galactorrh ea) and the risks and benefits.- Call center with questions/ concerns. Go to ER or call 911 for crisis (e.g., suicidal behaviors, suicidal ideations, intent or plan emerge). Additional ly, patient has suicide hotline #.- f/u one month- call with questions [id number] MARY SKINNER [facility] [address] [place] [address] 04/13/2022 14:28:40 04/20/2022 12:31:14 Depressive disorder 05555662 F32.A Patient with hx of depression having decreased sleep, fatigue, increased crying episodes, sadness and she handles divorce. She denies depression and anxiety. will trial prozac as she is having anxiety. She has tried sertraline and did not like it in the past. She has done two therapy sessions and encourged to continue.- Patient was educated on his prescribed medication s, rationale for medication s, dosing indication s, adverse reactions, black box warning, dosing indication s, SE (e.g., decreased libido, weight gain, gynecomast ia, and galactorrh ea) and the risks and benefits.- Call center with questions/ concerns. Go to ER or call 911 for crisis (e.g., suicidal behaviors, suicidal ideations, intent or plan emerge). Additional ly, patient has suicide hotline #.- f/u one month- call with questions Adult [facility] examination 022279551 Z00.00 Patient presents for work physical for [employer] and working with ages to 12. Going through amicable divorce. denies si/hi or any risk to her new job.- cleared to work- vitals WNL- encouraged weight loss via healthy lifestyle Tuberculos is screening 403150156 Z11.1 tb placed today [id number] MARY SKINNER [facility] [address] [place] [address] 05/07/2022 14:43:34 05/11/2022 11:43:40 Depressive disorder 68779332 F32.A Patient with hx of depression having decreased sleep, fatigue, increased crying episodes, sadness and she handles divorce. She denies depression and anxiety. will trial prozac as she is having anxiety. She has tried sertraline and did not like it in the past. She has done two therapy sessions and encourged to continue.- Patient was educated on his prescribed medication s, rationale for medication s, dosing indication s, adverse reactions, black box warning, dosing indication s, SE (e.g., decreased libido, weight gain, gynecomast ia, and galactorrh ea) and the risks and benefits.- Call center with questions/ concerns. Go to ER or call 911 for crisis (e.g., suicidal behaviors, suicidal ideations, intent or plan emerge). Additional ly, patient has suicide hotline #[phone].- f/u one month- call with questions Discharge from nipple 54 512494 N64.52 Normal peripheral vision. discharge has been happening before SSRI.obgyn aware x 3 years, told her its normalhad breast exam in march 2022 at obgyn office, declines exam todayhas pumped blood in past and had normal US 2020 Administra tion of influenza vaccine 91307621 Z23 Neck pain 13398030 M54.2 pt has had neck pain since being sick a week ago. it has improved. afebrile. chin to chest normal. RESTICENSA ID Administra tion of diphtheria, pertussis, and tetanus vaccine 106116670 Z23 Coffee hump 97054728 R2 2.2 on exam Deliberate self-cutting 859926386 T14.8XXA hx of wrist cutting as child. in last few month she has been cutting left upper thigh as a way to relieve my pain Obesity 757161433 E66.9 BMI 39.8, not wnl. - normal vitals- she is working on diet at home- encouraged diet and exercise [id number] MARY SKINNER [facility] [address] [place] [address] 06/07/2022 14:52:21 06/10/2022 14:56:04 Depressive disorder 53423283 F32.A continue current dose.-Vilma navarrete was educated on his prescribed medication s, rationale for medication s, dosing indication s, adverse reactions, black box warning, dosing indication s, SE (e.g., decreased libido, weight gain, gynecomast ia, and galactorrh ea) and the risks and benefits.- Call center with questions/ concerns. Go to ER or call 911 for crisis (e.g., suicidal behaviors, suicidal ideations, intent or plan emerge). Additional ly, patient has suicide hotline #.- f/u one month- call with questions Discharge from nipple 54 004636 N64.52 shameka saw obgyn and states it is normal. Normal peripheral vision. discharge has been happening before SSRI.obgyn aware x 3 years, told her its normalhad breast exam in march 2022 and again 2022 at obgyn officehas pumped blood in past and had normal US 2019 Obesity 409589200 E66.9 BMI 37.5, not wnl. - she is working on diet at home- encouraged diet and exercise [id number] MARY SKINNER [facility] [address] [facility] [place] [address] 07/08/2022 12:21:28 07/08/2022 13:20:48 Mass of right breast 6213123137 5842393 N63.10 Breast mass palpated at 6oclock outer breastUSf/ u obgyn [id number] MARY SKINNER [facility] [address] [facility] [place] [address] 08/20/2022 14:34:11 08/20/2022 15:27:57 Depressive disorder 57857268 F32.A continue following psychconti nue 1:1 therapy and group sessions Obesity 847689992 E66.9 BMI 37.5, not wnl. - she is working on diet at home- encouraged diet and exercise [id number] MARY SKINNER [facility] [address] [facility] [place] [address] 10/18/2022 11:21:45 10/18/2022 12:18:53 Mass of right breast 5366381231 4799390 N63.10 Breast mass palpated at 6oclock outer breast, no changes from 07/2022USf/ u obgyn [id number] MARY SKINNER [facility] [address] [facility] [place] [address] 01/26/2023 10:21:55 01/26/2023 11:23:47 Recurrent acute streptococcal tonsillitis 2639545027 9741793 J03.01 another round of strep treated with gildardo. last dose today. PEX:swolle n and erythemato us pharynxf/u with ent Impetigo 21757345 L01.00 possible impetigo tip of nose, has been cleaning with alcoholddx : shingles (less likely due to no pain, no vesicular today, age)trial mupirocin Obesity 823360267 E66.9 BMI 35.9 [id number] Vinicio wilkins MD [facility] [address] [place] [address] 10/27/2023 14:52:36 10/27/2023 16:56:21 Hemoptysis 47489518 R04.2 one episode in july 2023 Adult heal th examination 668869008 Z00.00 Patient presents for work physical for [employer] in the [employer]. Going through amicable divorce. depression controlled . denies si/hi or any risk to her new job.- cleared to work- vitals WNL- encouraged weight loss via healthy lifestyle Obesity 243191106 E66.8 BMI 36.3 [id number] Shine Tam MD [facility] [address] [place] [address] 12/22/2023 10:16:34 12/22/2023 11:00:39 Infectious mononucleosis 322586230 B27.90 dx 11/2023 with lingering fatigue. overall normal exam.- education provided- CT scan from ER reviewed, very enlarged spleen- will f/u with US for resolution as her job still has some risks of trauma to spleen Splenomegaly 95401841 R1 6.[address] scan 11/16/23 [id number] Shine Tam MD [facility] [address] [place] [address] 02/01/2024 09:33:14 02/01/2024 10:06:44 Screening for malignant neoplasm of cervix 006310044 Z12.4 last pap 1 yr agono h/o abnormalsP Ex- sample taken for papsent nuswab Candidiasis of skin 4988 3006 B37.2 x1 yrmedial inframamma ry folds bilaterall ydry, comes and goes, does not stay wet or worsen with sweatPEx- rash- mild xerosis with brown hyperpigme ntation to medial inframamma ry foldstrial nystatin, advised to pt portal if no improvemen t Depression screening 171 714225 Z13.31 PHQ 0 Health Concerns Section Related Observation LastModified by Organization Detai ls LastModified Time None Recorded Concern Status LastModified by Organization Details LastModified Time None Recorded Advance Directives Directive N: Payers Insurance Date Sequence Insurance Name Policy Number Policy Castro Covered Member ID Castro Member ID Guarantor Name 01/29/2024 1 [facility] - DOS ON OR AFTER 20 (MEDICAID REPLACEMENT - HMO) Jacinta Espinozauire [id number] Jacinta Espinozauire 01/03/2024 2 [facility] (MEDICARE REPLACEMENT/AD VANTAGE - HMO) Jacinta Len [id number] Jacinta Espinozauire Notes Date Note Type Note Provider Name [...] from 07/2022. MARY SKINNER Attn: Accounting,[address] [facility], [place], [address], [facility] 10/18/2022 12:22:41 01/26/2023 text/html Jacinta is a [...] fever, chills, cough, sneezing. MARY SKINNER Attn: Accounting,[address] [facility], [place], [address], 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 She enjoys doing this. states depression is well controlled. Has good support system. still going through divorce proceedings. She states she had one episode of bloody sputum and has not happened again. tonsilectomy mar 2023, no complcations MARY SKINNER Attn: Accounting,[address] [facility], [place], [address], [facility] 10/31/2023 08:33:02 12/22/2023 text/html Jacinta is a [...] heavy lifting. MARY SKINNER Attn: Accounting,[address] [facility], [place], [address], [facility] 12/22/2023 11:11:56 02/01/2024 text/html Pt presents for [...] age 86. MARY NAVARRO Attn: Accounting,[address] [facility], [place], [address], [facility] 02/01/2024 10:12:20 OBGyn Episode No OBEpisode recorded.
--- OUTSIDE RECORDS SUMMARY | 2024-11-18 18:23 | XMS_ITS ---
Author Organization Unknown Plan of Treatment Description Planned Activity Planned Timing [facility] is a provider organization who partners directly with Health Plans and provides integrated primary care, behavioral health, and community mental health social worker for an attributed population Letter encounter to patientTelephone encounter Nov 01, 2024Jul 2024 Patient Care team information Name Category Status Period Participants - - Proposed period not known -
[2024-11-18 18:25] VITALS: BP 123/82; PULSE 96; RESP 17; TEMP 36.5; O2SAT 98
== END 2024-11-18 18:39 | disposition home or self-care (01) ==
PROVIDERS: Emergency Provider Nurse Practitioner; PCP Physician Assistant
DX: S50.862A Insect bite (nonvenomous) of left forearm, initial encounter (principal); L08.9 Local infection of the skin and subcutaneous tissue, unspecified; W57.XXXA Bitten or stung by nonvenomous insect and other nonvenomous arthropods, initial encounter; I10 Essential (primary) hypertension; E78.00 Pure hypercholesterolemia, unspecified; E66.01 Morbid (severe) obesity due to excess calories; Z68.36 Body mass index [BMI] 36.0-36.9, adult
CPT/HCPCS: 99213; G0463

== ENCOUNTER 2025-01-02 13:28 | Emergency (ER) | payer OTHER, SELFPAY ==
--- NOTE | ~2025-01-02 | CT_ITS ---
EXAMINATION: CT brain wo carmel, 01/02/2025 14:50 CDT HISTORY: paresthesias COMPARISON: No comparisons available. Technique: Axial images obtained of the brain without contrast. One or more of the following dose reduction techniques were used: automated exposure control, adjustment of the mA and/or kV according to patient size, use of iterative reconstruction technique. Findings: No acute infarct or parenchymal hemorrhage. No abnormal mass or mass effect. No midline shift. No extra-axial fluid collections. No hydrocephalus. Mastoid air cells unremarkable. Sinuses and orbits unremarkable. No acute fracture. No significant facial or scalp soft tissue swelling evident. No radiopaque foreign body is seen. Impression: 1.No acute intracranial abnormality. Reviewed, dictated and finalized at location A. Impression: 1.No acute intracranial abnormality.
[2025-01-02 13:36] VITALS: BP 139/90; PULSE 87; RESP 19; TEMP 36.6; O2SAT 100
--- OUTSIDE RECORDS SUMMARY | 2025-01-02 13:38 | XMS_ITS | Patient Health Record ---
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 Stress is when someone feels tense, nervous, anxious, or can\t sleep at night because their mind is troubled Somewhat In the past year have you sp ent more than 2 nights in a row in a fdc, senior living, chcf center, or juvenile correctional facility? No Are you a refugee? No Do you feel physically and e motionally safe where you currently live? Yes In the past year, have you b een afraid of your partner or ex-partner? Yes PRAPARE Score: 6 Problems Problem Type SNOMED Code ICD Code Onset Dates Problem Status W/U Status Risk Notes Problem Depression (477686574) Depression (F32.9) Active confirmed Problem Attention deficit hyperactivity disorder (378460673) ADHD (attention deficit hyperactivity disorder), combined type (F90.2) Active confirmed Problem Anxiety (36296985) Anxiety (F41.9) Active confirmed Problem Alcohol consumption binge drinking (F10.10) Active confirmed Encounters Encounter Location Date Provider Diagnosis [facility] [address] [place] [address] 03/21/2024 Caryl Randhawa [facility] [address] [place] [address] 03/22/2024 Jerry Torres [address] [place] [address] 05/04/2024 Jerry Torres [address] [place] [address] 09/26/2024 Jerry Torres [address] [place] [address] 03/27/2024 Jerry Torres Depression F32.9 ; Anxiety F41.9 and ADHD (attention deficit hyperactivity disorder), combined type F90.[address] [place] [address] 11/13/2024 Jerry Torres ADHD (attention deficit hyperactivity disorder), combined type F90.2 ; Depression F32.9 ; Anxiety F41.9 and Alcohol consumption binge drinking F10.10 Assessments Encounter Date Diagnosis (ICD Code) Assessment Notes Treatment Notes Treatment Clinical Notes Section Notes 11/13/2024 Depression (ICD-10 - F32.9) Client is [...] trial after discussing risk versus benefit. 11/13/2024 Alcohol consumption binge drinking (ICD-10 - F10.10) Client is agreeable to restarting treatment plan. Discussed trial of naltrexone in Jian fashion of administration to aide with limiting [...] number to the 24-hour crisis line at [facility]. Questions addressed. Client verbalized understanding of all information and is agreeable to treatment plan. Client is agreeable to restarting treatment plan. Discussed trial of naltrexone in Jain fashion of administration to aide with limiting binge drinking. Client is agreeable to trial after discussing risk versus benefit. 03/27/2024 Other Discussed sleep hygiene and caffeine [...] number to the 24-hour crisis line at [facility]. Questions addressed. Client verbalized understanding of all information and is agreeable to treatment plan. Despite recent stressors, client doing well. No treatment plan changes needed. Plan Of Treatment No Information Insurance Providers Payer Name Payer Address Payer Phone Subscriber Number Group Number Insured Name Patient Relationship to Insured Coverage Start Date Coverage End Date [facility] Attn Claims Department [address] [place] [id number] [phone] [id number] Jacinta Harrington Self - patient is the insured 2 [facility] Attn Claims Department [address] [place] [address] [phone] [id number] Jacinta Harrington Self - patient is the insured 2 Medical (General) History Medical History History ICD Code vocal cord disorder migraines (not currently taking meds for this) Surgical History Surgery Date(Month/Year) dilatation and curettage 2019 c section 2020 Hospitalization History Reason Date(Month/Year)
--- NOTE | 2025-01-02 14:51 | ED.NAVMDI ---
HPI - Nausea/Vomiting/Diarrhea General Chief complaint: Nausea/Vomiting/Diarrhea <Brianna Preston PA-C - Last Filed: 01/02/25 18:22> Stated complaint: nausea, light headed, body numbness/tingling <Brianna Preston PA-C - Last Filed: 01/02/25 18:22> Time Seen by Provider: 01/02/25 14:51 <Brianna Preston PA-C - Last Filed: 01/02/25 18:22> Focused HPI: This is a 29 year old female that presents to the ER for nausea, lightheadedness. Reports numbness in certain body parts. Reports she is having slurred speech. Ongoing since 10:30 this morning. GENERAL: Well-appearing, well-nourished, and in no acute distress. HEAD: Normocephalic, atraumatic. CHEST: Clear to auscultation. ?No respiratory distress. HEART: Regular rate and rhythm.? NEURO: ?Alert and oriented x3. Normal gait Patient screened in triage and initial orders placed.? ?Additional care and disposition to be based upon?diagnostic testing and treatment. <Brianna Preston PA-C - Last Filed: 01/02/25 18:22> History of Present Illness HPI Narrative: This is a 29-year-old female presenting after a episode of lightheadedness at work. She said she got to work and she started feel lightheaded and dizzy. Her legs felt weak. She had a numbness feeling in her arms and legs that spread up the back of her head. During this time she will confusion was having trouble speaking. No visual changes. No focal weakness to any extremity. No double vision dysarthria dysphagia. This then resolved on its own after she gets the hospital. Patient says she has had similar symptoms in the past after a blood draw. She is neuro helps the and told she has vasovagal syncope. <Arthur Krishnamurthy MD - Last Filed: 01/02/25 17:15> Related Data Home medications: Home Medications ?Medication ?Instructions ?Recorded ?Confirmed ?Last Taken ?Type atomoxetine 40 mg capsule 60 mg PO DAILY 03/22/23 12/07/24 Unknown History (Strattera) propranolol 10 mg tablet 10 mg PO PRN PRN Anxiety 03/25/23 12/07/24 Unknown History doxepin 50 mg capsule 50 mg PO HS 02/15/24 12/07/24 Unknown History naltrexone 50 mg tablet mg 11/18/24 12/07/24 Unknown History <Brianna Preston PA-C - Last Filed: 01/02/25 18:22> Allergies/Adverse reactions: Allergies Allergy/AdvReac Type Severity Reaction Status Date / Time amoxicillin Allergy Severe Swelling Verified 12/07/24 08:53 of Lip/Tongue/Throat adhesive tape AdvReac Mild Rash Verified 12/07/24 08:53 silver AdvReac Mild Rash Verified 12/07/24 08:53 <Brianna Preston PA-C - Last Filed: 01/02/25 18:22> Review of Systems Review of Systems: All systems reviewed & are unremarkable except as noted in HPI and below <Brianna Preston PA-C - Last Filed: 01/02/25 18:22> FOR[facility]LY [facility] Past Medical History Medical History: Medical History Low grade squamous intraepithelial lesion (LGSIL) on cervical Pap smear Fatigue 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 Encounter for screening examination for sexually transmitted disease KWADWO (obstructive sleep apnea) Initiation of Depo Provera Encounter for screening examination for sexually transmitted disease Surveillance for Depo-Provera contraception Missed (08/30/19) Morbid obesity with BMI of 40.0-44.9, adult Depression Anxiety Eczema Hypercholesterolemia Migraine HTN (hypertension) <Brianna Preston PA-C - Last Filed: 01/02/25 18:22> Surgical History Surgical History: Surgical History History of colposcopy (~12/07/24) History of tonsillectomy (12/07/24) History of dilation and curettage 08/30/19 suction d&c History of section 10/14/16 primary c/s--arrest of dilation Forrest maternal pp hypertension 10/14/20 rpt c/s Cheryl <Brianna Preston PA-C - Last Filed: 01/02/25 18:22> Family History Family History: Family History Mother Anxiety Depression Bipolar 1 disorder Hypertension Migraines Father Diabetes mellitus Acute myocardial infarction, Onset Age: 49 Kidney failure Heart disease <Brianna Preston PA-C - Last Filed: 01/02/25 18:22> Social History Social History: Social History Smoking status: Current every day smoker Tobacco type: cigarettes and e-cigarettes/vaping Second hand tobacco smoke exposure: Yes Additional smoking assessment comments: RARE CIGARETTE SMOKING, MOSTLY VAPING Alcohol intake: current Alcohol use details: occasional 2-4 times a month Substance use: former Substance use type: marijuana Other substance usage details: 5-7 times a year Do You Feel Safe in your Home?: Yes Lack of Transportation: No Lack of Food: Never True Current Housing: I Do Not Have Housing Concerned About Future Housing: No Difficulty Paying Gas/Electric Bills: YES Difficulty Paying for Meds: No Currently Unemployed: No Education: High School Diploma/GED Difficulty w/ Childcare or Family Care: No Living arrangements: with family Additional living arrangements comments: Occupation/Education: occupation 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 Head: atraumatic. EYES: EOMI, NOSE: Atraumatic NECK: Trachea midline RESPIRATORY: No increased rate of breathing clear to auscultation CARDIOVASCULAR: RRR, no peripheral edema ABDOMINAL: Non-distended soft nontender MUSCULOSKELETAl: No obvious deformities NEURO: Alert. Cranial nerves 2-12 grossly intact, moving for 4 extremities, gait exam normal SKIN:: Warm, dry. Normal color PSYCHIATRIC: Normal affect <Arthur Krishnamurthy MD - Last Filed: 01/02/25 17:15> Course Vital Signs Vital signs: Vital Signs Temperature 97.8 F 01/02/25 13:36 Pulse Rate 87 01/02/25 13:36 Respiratory Rate 19 01/02/25 13:36 Blood Pressure 139/90 01/02/25 13:36 Pulse Oximetry 100 01/02/25 13:36 Oxygen Delivery Room Air 01/02/25 13:36 Temperature 97.5 F L 01/02/25 15:42 Pulse Rate 78 01/02/25 17:28 Respiratory Rate 20 01/02/25 17:28 Blood Pressure 125/87 01/02/25 17:28 Pulse Oximetry 100 01/02/25 17:28 Oxygen Delivery Room Air 01/02/25 13:36 <Brianna Preston PA-C - Last Filed: 01/02/25 18:22> Vital Signs Temperature 97.8 F 01/02/25 13:36 Pulse Rate 87 01/02/25 13:36 Respiratory Rate 19 01/02/25 13:36 Blood Pressure 139/90 01/02/25 13:36 Pulse Oximetry 100 01/02/25 13:36 Oxygen Delivery Room Air 01/02/25 13:36 Temperature 97.5 F L 01/02/25 15:42 Pulse Rate 78 01/02/25 17:28 Respiratory Rate 20 01/02/25 17:28 Blood Pressure 125/87 01/02/25 17:28 Pulse Oximetry 100 01/02/25 17:28 Oxygen Delivery Room Air 01/02/25 13:36 <Arthur Krishnamurthy MD - Last Filed: 01/02/25 17:15> MDM - Nausea/Vomiting/Diarrhea MDM Narrative Medical decision making narrative: -Course: 29-year-old female presenting with an episode of lightheadedness and a constellation of symptoms that are most consistent with vasovagal syncope. CT brain was unremarkable. Laboratory studies within normal limits. EKG reviewed without high risk findings. I offered to give the patient some IV fluids and she has declined. On re-evaluation patient is feeling much better. Vital signs are stable. She is requesting discharge. She will be discharged primary care follow-up return precautions. -DDX includes but is not limited to: vasovagal syncope, dehydration, anxiety, cranial hemorrhage, MS <Arthur Krishnamurthy MD - Last Filed: 01/02/25 17:15> Lab Data Result diagrams: 01/02/25 15:55 01/02/25 15:55 <Brianna Preston PA-C - Last Filed: 01/02/25 18:22> Labs: Lab Results 01/02/25 01/02/25 01/02/25 Range/Units 13:35 15:55 15:58 WBC 9.6 (4.5-10.0) K/mm3 RBC 4.80 (4.2-5.4) M/mm3 Hgb 13.8 (12.0-15.0) g/dL Hct 42.0 (37.0-47.0) % MCV 87.5 (80-100) fl MCH 28.8 (26-34) pg MCHC 32.9 (32-36) g/dl RDW 12.8 (11.5-14.5) % Plt Count 452 H D (150-375) k/mm3 MPV 9.1 (7.4-10.4) fl Immature Gran % (Auto) 0.3 (0-0.5) % Neut % (Auto) 59.1 (45.5-73.1) % Lymph % (Auto) 31.7 (18.3-44.2) % Antelope % (Auto) 6.8 (2.6-8.5) % Eos % (Auto) 1.6 (0-4.4) % Baso % (Auto) 0.5 (0.2-1.2) % Lymph # (Auto) 3.03 (0.9-3.2) K/mm3 Antelope # (Auto) 0.7 H (0.1-0.6) K/mm3 Eos # (Auto) 0.2 (0-0.3) K/mm3 Baso # (Auto) 0.1 (0.0-0.1) K/mm3 Abs Immat Gran (auto) 0.03 (0.00-0.031) K/mm3 Absolute Neuts (auto) 5.6 (1.3-6.7) K/mm3 Absolute Nucleated RBC 0.000 (0.0-0.012) K/mm3 Nucleated RBC % 0.0 (0.0-0.2) % Sodium 137 (137-145) mmol/L Potassium 3.5 (3.4-5.0) mmol/L Chloride 102 (98-107) mmol/L Carbon Dioxide 26 (22-30) mmol/L Anion Gap 9 (4-12) mmol/L BUN 9 (7-17) mg/dL Creatinine 0.58 L (0.7-1.0) mg/dL Estim Creat Clear Calc 121 ml/min Estimated GFR > 60 (59 - ) Glucose 99 (65-110) mg/dL POC Capillary Glucose 115 H (65-105) mg/dl Calcium 9.4 (8.4-10.2) mg/dL Total Bilirubin 0.5 (0.2-1.3) mg/dL AST 23 (14-36) U/L ALT 22 (6-35) U/L Alkaline Phosphatase 71 (38-126) U/L Total Protein 7.6 (6.3-8.2) g/dL Albumin 4.6 (3.5-5.1) g/dL Lipase 60 (23-300) U/L Vitamin B12 360.0 (239-931) pg/mL Folate 8.0 (2.76->20) ng/mL Urine Color Yellow (Yellow) Urine Appearance Cloudy H (Clear) Urine pH 7.0 (5.0-9.0) Ur Specific [place] 1.012 (1.001-1.035) Urine Protein Negative (Negative) mg/dL Urine Glucose (UA) Negative (Negative) mg/dL Urine Ketones Negative (Negative) mg/dL Ur Blood (Man) Negative (Negative) Urine Nitrate Negative (Negative) Urine Bilirubin Negative (Negative) Urine Urobilinogen 0.2 (<2.0) mg/dL Leukocyte Esterase Rfl Negative (Negative) CLIFFORD/UL Urine RBC 0-2 (0-2) /hpf Urine WBC 0-5 (0-3) /hpf Ur Squamous Epith Cells Few (Few) /hpf Urine Bacteria None seen /hpf Urine Casts 0-2 POC Urine HCG, Qual Negative (Negative) <Brianna Preston PA-C - Last Filed: 01/02/25 18:22> Lab Results 01/02/25 01/02/25 01/02/25 Range/Units 13:35 15:55 15:58 WBC 9.6 (4.5-10.0) K/mm3 RBC 4.80 (4.2-5.4) M/mm3 Hgb 13.8 (12.0-15.0) g/dL Hct 42.0 (37.0-47.0) % MCV 87.5 (80-100) fl MCH 28.8 (26-34) pg MCHC 32.9 (32-36) g/dl RDW 12.8 (11.5-14.5) % Plt Count 452 H D (150-375) k/mm3 MPV 9.1 (7.4-10.4) fl Immature Gran % (Auto) 0.3 (0-0.5) % Neut % (Auto) 59.1 (45.5-73.1) % Lymph % (Auto) 31.7 (18.3-44.2) % Antelope % (Auto) 6.8 (2.6-8.5) % Eos % (Auto) 1.6 (0-4.4) % Baso % (Auto) 0.5 (0.2-1.2) % Lymph # (Auto) 3.03 (0.9-3.2) K/mm3 Antelope # (Auto) 0.7 H (0.1-0.6) K/mm3 Eos # (Auto) 0.2 (0-0.3) K/mm3 Baso # (Auto) 0.1 (0.0-0.1) K/mm3 Abs Immat Gran (auto) 0.03 (0.00-0.031) K/mm3 Absolute Neuts (auto) 5.6 (1.3-6.7) K/mm3 Absolute Nucleated RBC 0.000 (0.0-0.012) K/mm3 Nucleated RBC % 0.0 (0.0-0.2) % Sodium 137 (137-145) mmol/L Potassium 3.5 (3.4-5.0) mmol/L Chloride 102 (98-107) mmol/L Carbon Dioxide 26 (22-30) mmol/L Anion Gap 9 (4-12) mmol/L BUN 9 (7-17) mg/dL Creatinine 0.58 L (0.7-1.0) mg/dL Estim Creat Clear Calc 121 ml/min Estimated GFR > 60 (59 - ) Glucose 99 (65-110) mg/dL POC Capillary Glucose 115 H (65-105) mg/dl Calcium 9.4 (8.4-10.2) mg/dL Total Bilirubin 0.5 (0.2-1.3) mg/dL AST 23 (14-36) U/L ALT 22 (6-35) U/L Alkaline Phosphatase 71 (38-126) U/L Total Protein 7.6 (6.3-8.2) g/dL Albumin 4.6 (3.5-5.1) g/dL Lipase 60 (23-300) U/L Vitamin B12 360.0 (239-931) pg/mL Folate 8.0 (2.76->20) ng/mL Urine Color Yellow (Yellow) Urine Appearance Cloudy H (Clear) Urine pH 7.0 (5.0-9.0) Ur Specific [place] 1.012 (1.001-1.035) Urine Protein Negative (Negative) mg/dL Urine Glucose (UA) Negative (Negative) mg/dL Urine Ketones Negative (Negative) mg/dL Ur Blood (Man) Negative (Negative) Urine Nitrate Negative (Negative) Urine Bilirubin Negative (Negative) Urine Urobilinogen 0.2 (<2.0) mg/dL Leukocyte Esterase Rfl Negative (Negative) CLIFFORD/UL Urine RBC 0-2 (0-2) /hpf Urine WBC 0-5 (0-3) /hpf Ur Squamous Epith Cells Few (Few) /hpf Urine Bacteria None seen /hpf Urine Casts 0-2 POC Urine HCG, Qual Negative (Negative) <Arthur Krishnamurthy MD - Last Filed: 01/02/25 17:15> Critical Care Time Critical Care Time Critical Care Time: No <Brianna Preston PA-C - Last Filed: 01/02/25 18:22> Discharge Plan Discharge Clinical Impression: Vaso vagal episode <Brianna Preston PA-C - Last Filed: 01/02/25 18:22> Patient Disposition: Home <Brianna Preston PA-C - Last Filed: 01/02/25 18:22> Condition: Stable <Brianna Preston PA-C - Last Filed: 01/02/25 18:22> Instructions: Antibiotic Form, Syncope (ED) <Brianna Preston PA-C - Last Filed: 01/02/25 18:22> Additional Instructions: You were seen in the emergency department after an episode of lightheadedness. This is most consistent with vasovagal syncope. Please follow-up with your primary care physician for further management. If he redevelops symptoms or develops any new symptoms such as slurred speech or weakness extremity please return to the ED for re-evaluation. <Brianna Preston PA-C - Last Filed: 01/02/25 18:22> Patient Language: [place]auan <Brianna Preston PA-C - Last Filed: 01/02/25 18:22> Prescriptions: No Action naltrexone 50 mg tablet sulfamethoxazole-trimethoprim 800-160 mg tablet 1 tablet PO Q12H 7 Days Qty: 14 0RF hydrocortisone 1 % cream 1 applic topical QID PRN (Reason: itching) Qty: 28.35 0RF atomoxetine [Strattera] 40 mg capsule 60 mg PO DAILY doxepin 50 mg capsule 50 mg PO HS cetirizine 10 mg tablet 10 mg PO HS Qty: 30 0RF propranolol 10 mg tablet 10 mg PO PRN PRN (Reason: Anxiety) medroxyprogesterone [Depo-Provera] 150 mg/mL syringe 150 mg IM [id number] Qty: 1 3RF <Brianna Preston PA-C - Last Filed: 01/02/25 18:22> Follow-up/Referrals: PHYSICIAN NOT ON STAFF,NONSTAFF [Primary Care Provider] <Brianna Preston PA-C - Last Filed: 01/02/25 18:22>
[2025-01-02 15:42] VITALS: BP 137/90; PULSE 80; RESP 14; TEMP 36.4; O2SAT 100
[2025-01-02 15:48] VITALS: PULSE 84; RESP 16
[2025-01-02 15:59] LABS: BEDSIDEPREGUCG Negative (Negative)
[2025-01-02 16:01] LABS: Hematocrit 42.0 % (37.0-47.0); Hemoglobin 13.8 g/dL (12.0-15.0); Immature Granulocyte Percent A 0.3 % (0-0.5); Lymphocytes Absolute Auto 3.03 K/mm3 (0.9-3.2); Mean Corpuscular HGB Conc 32.9 g/dl (32-36); Mean Corpuscular Hemoglobin 28.8 pg (26-34); Mean Corpuscular Volume 87.5 fl (80-100); Nucleated Red Blood Cells Absolute Auto 0.000 K/mm3 (0.0-0.012); Nucleated Red Blood Cells Perc 0.0 % (0.0-0.2); Platelet Count Result 452 k/mm3 (150-375); Red Blood Count 4.80 M/mm3 (4.2-5.4); White Blood Count 9.6 K/mm3 (4.5-10.0)
[2025-01-02 16:05] LABS: Add Urine Microscopic? YES; Appearance Urine Cloudy (Clear); Glucose Urine UA Negative (Negative); Leukocyte Esterase Ur Negative LEU/UL (Negative); Nitrate Urine Negative (Negative); Non Pathogenic Casts 0-2; Specific Grav Ur 1.012 (1.001-1.035)
[2025-01-02 16:10] LABS: Alanine Aminotransferase 22 U/L (6-35); Albumin Level 4.6 g/dL (3.5-5.1); Alkaline Phosphatase 71 U/L (38-126); Anion Gap 9 mmol/L (4-12); Aspartate Amino Transferase 23 U/L (14-36); Bilirubin,Total 0.5 mg/dL (0.2-1.3); Blood Urea Nitrogen 9 mg/dL (7-17); Calcium 9.4 mg/dL (8.4-10.2); Carbon Dioxide 26 mmol/L (22-30); Chloride 102 mmol/L (98-107); Estimated CRCL calculation 121 ml/min; Estimated Glomerular Filt Rate > 60; Glucose 99 mg/dL (65-110); Lipase 60 U/L (23-300); Potassium 3.5 mmol/L (3.4-5.0); Sodium 137 mmol/L (137-145); Total Protein 7.6 g/dL (6.3-8.2)
--- NOTE | 2025-01-02 16:45 | ECG_ITS ---
Test Date: 2025-01-02 17:03:24 Measurements Intervals [place] Rate: 68 P: 17 LA: 135 QRS: 5 QRSD: 81 T: -8 QT: 404 QTc: 431 Interpretive Statements SINUS RHYTHM WITH SINUS ARRHYTHMIA EARLY PRECORDIAL R/S TRANSITION NONSPECIFIC T-WAVE ABNORMALITY- ANT/INF LEADS BASELINE ARTIFACT- I, II, AVR, V5 BORDERLINE ECG Compared to ECG 11/16/2023 10:39:18 POSSIBLE ISCHEMIA NO LONGER PRESENT Electronically Signed On 01-02-2025 18:46:54 CDT by Guillaume Ayers D.O.
[2025-01-02 17:28] VITALS: BP 125/87; PULSE 78; RESP 20; O2SAT 100
[2025-01-02 17:35] LABS: Vitamin B12 360.0 pg/mL (239-931)
== END 2025-01-02 17:30 | disposition home or self-care (01) ==
PROVIDERS: Physician Assistant; Emergency Provider Emergency Medicine
DX: R55 Syncope and collapse (principal); I10 Essential (primary) hypertension; E66.01 Morbid (severe) obesity due to excess calories; Z68.38 Body mass index [BMI] 38.0-38.9, adult; E78.00 Pure hypercholesterolemia, unspecified; G47.33 Obstructive sleep apnea (adult) (pediatric); F32.A Depression, unspecified; F41.9 Anxiety disorder, unspecified; F17.210 Nicotine dependence, cigarettes, uncomplicated; F17.290 Nicotine dependence, other tobacco product, uncomplicated; R94.31 Abnormal electrocardiogram [ECG] [EKG]
CPT/HCPCS: 36415; 70450; 80053; 81001; 81025; 82607; 82746; 82948; 83690; 85025; 93005; 99284